=== PATIENT | male | born 1985 | race Caucasian/White ===

== ENCOUNTER 2017-03-04 22:48 | Emergency (ER) | payer MEDICAID, OTHER ==
[2017-03-04 23:10] VITALS: BP 135/91
--- NOTE | 2017-03-04 23:17 | EDM.PDOC ---
ED HPI LOWER BACK PAIN/INJURY - General Chief Complaint: Back Pain or Injury Stated Complaint: BACK PAIN AND RIGHT LEG PAIN Time Seen by Provider: 03/04/17 23:20 Source of Information: Reports: Patient History Limitations: Reports: No limitations - History of Present Illness INITIAL COMMENTS - FREE TEXT/NARRATIVE: 31-year-old male presents the ED with acute onset of right low back pain radiating down the posterior lateral aspect of his right leg. States this occurred in the workplace this morning about 0900 hrs ,when he bent over to pick and shovel man holes from the ground. [place] sudden pop and had severe pain in his right back that nearly per him to the ground. States he had to quit work and came back to town. 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 He has similar problems in the past the back is been for the most part pretty good over the last 2 months. 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 He is immunocompromised by been on cyclophosphamide and prednisone daily. Patient comes to the ED seeking pain management. Of note he lives in [place].. Symptom Onset Date: 03/04/17 Symptom Onset Time: 09:00 Timing/Duration: Reports: Hour(s): Location: Reports: lower (Mid lower right back.), radiating pain (Right posterior lateral leg and buttock.) Quality: Reports: Same as previous episode, Sharp (Perhaps worsened when his experience in the past.), Stabbing, Throbbing Severity: severe Place of Occurrence: work Improves with: Reports: None (Has been taking Aleve and Motrin with no relief.) Worsens with: Reports: Movement (Worsened particularly by sitting.) Context: Reports: lifting, bending Associated Symptoms: Reports: Shortness of breath (Chronically due to vasculitis involving his lungs.). 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: NSAIDS, Other (see below) - Related Data Allergies/ADRs: Allergies Allergy/AdvReac Type Severity Reaction Status Date / Time methocarbamol [From Robaxin] Allergy Itching Verified 03/04/17 23:10 tramadol AdvReac Sweating Verified 03/04/17 23:10 Home Meds: Home Meds Cyclophosphamide 50 mg PO DAILY 04/25/16 [History] Pantoprazole Sodium [Protonix] 40 mg PO BID 04/25/16 [History] predniSONE [Prednisone] 20 mg PO DAILY 04/25/16 [History] Cyclobenzaprine [Flexeril] 10 mg PO BEDTIME #15 tablet 03/04/17 [Rx] Cyclobenzaprine [Flexeril] 10 mg PO DAILY #1 tablet 03/04/17 [Rx] Lisinopril 10 mg PO BID 03/04/17 [History] oxyCODONE HCl/Acetaminophen [Percocet 5-325 mg Tablet] 1 - 2 each PO Q4H PRN # 30 tablet 03/04/17 [Rx] oxyCODONE HCl/Acetaminophen [Percocet 5-325 mg Tablet] 1 - 2 each PO Q4H PRN #5 tablet 03/04/17 [Rx] Past Medical History HEENT History: Reports: Impaired vision Other HEENT History: wears eyeglasses Cardiovascular History: Reports: High cholesterol, Hypertension Respiratory History: Reports: Pneumothorax Other Respiratory History: ANCA Vasculitis Musculoskeletal History: Reports: Back pain, chronic Neurological History: Reports: Headaches, chronic Immunologic History: Reports: Other (see below) Other Immunologic History: vasculitis, "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." - Past Surgical History GI Surgical History: Reports: Appendectomy Neurological Surgical History: Reports: C-Spine, Lumbar spine Social & Family History - Family History Family Medical History: Noncontributory Cardiac: Reports: [place] - Tobacco Use Smoking Status *Q: Never Smoker Used Tobacco, but Quit: Yes Second Hand Smoke Exposure: No - Caffeine Use Caffeine Use: Reports: Soda - Alcohol Use Days Per Week of Alcohol Use: 0 - Recreational Drug Use Recreational Drug Use: No - Living Situation & Occupation Living situation: Reports: single, other (Work camp roommates) 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 Denies: fever, chills, malaise, weakness, fatigue, weight loss HEENT: Reports: No symptoms Respiratory: Reports: No Symptoms Cardiovascular: Reports: No symptoms Endocrine: Reports: no symptoms GI/Abdominal: Reports: No symptoms : Reports: no symptoms Musculoskeletal: Reports: back pain (Right mid and lower back pain radiating into the posterior right thought and down the lateral posterior aspect of his leg.) Skin: Reports: no symptoms Neurological: Reports: No Symptoms Psychiatric: Reports: No symptoms Hematologic/Lymphatic: Reports: no symptoms Immunologic: Reports: no symptoms ED EXAM,LOWER BACK PAIN/INJURY - Physical Exam Exam: See Below Exam Limited By: Other General Appearance: alert (Moves very slowly.), WD/WN, moderate distress Eye Exam: bilateral eye: normal inspection Respiratory/Chest: no respiratory distress, lungs clear, normal breath sounds, no accessory muscle use Cardiovascular: normal peripheral pulses, regular rate, rhythm, no edema, no gallop, no murmur GI/Abdominal: normal bowel sounds, soft, non tender, no organomegaly, no distention Back Exam: decreased range of motion, muscle spasm (Minimal muscle spasm on the right side his highest T6 radiating down toward lumbar one. In the lumbar spine muscle spasm dissipates. It is tenderness in the deep facet joints particularly at lumbar 2-3 area. He has limited ability to rotate and to forward flex.) Extremities: normal inspection, no pedal edema, normal capillary refill, other ( One left leg raise I can internally and externally rotate both his hip and cause some mild increased pain in his right lower back. On the right side straight leg raise caused pain at 40 of straight leg raise. He does have full range of motion of his hip when flexed. Pain worsened is living history note with increased pain in his right lower back.) Neurological: normal mood/affect, normal dorsiflexion, CN II-XII intact, oriented x 3. No: normal gait, normal reflexes DTR - Lower Extremities: 1+: ankle (R), ankle (L), 2+: knee (R), knee (L) Psychiatric: normal affect Skin Exam: Warm, Dry, Intact, Normal color, No rash Course - Vital Signs Last Recorded V/S: Last Vital Signs Temp 37.1 C 03/04/17 23:04 Pulse 76 03/04/17 23:04 Resp 16 03/04/17 23:04 BP 135/91 H 03/04/17 23:04 Pulse Ox 100 03/04/17 23:04 - Orders/Labs/Meds Meds: Medications Discontinued Medications Generic Name Dose Route Start Last Admin Trade Name Freq PRN Reason Stop Dose Admin Cyclobenzaprine HCl Confirm 03/05/17 00:05 Flexeril Administered 03/05/17 00:06 Dose 10 mg .[facility] .[facility]MedSocketT[facility] - Radiology Interpretation Free Text/Narrative:: 31-year-old male presents the ED with acute injury to his right lower back with radiculopathy into his right buttock and posterior lateral leg L5 nerve root distribution. He's had this before but not quite to the severity. States the pain occurred simply by bending over to pick and shovel man a hose from the ground while in the workplace about 0900 hours this morning. Since that time the pain has gradually increased in intensity. He did quit work and go home early. Taking Flexeril tablets at home with minimal relief. Patient is unusual disease with severe vasculitis involving his lungs. He is immunocompromised by been on cyclophosphamide and prednisone daily. It's unclear if this is Guy's granulomatosis or some other form of vasculitis. On exam he has minimal months muscle spasm. Concern is for disc herniation. Plan CT of the lumbar spine - Re-Assessments/Exams Free Text/Narrative Re-Assessment/Exam: 03/05/17 00:30: CT of the lumbar spine shows no other maladies of the bony structure checks are in the disc spaces are well-maintained. I can see no obvious disc herniation. Facet facet joints also appear to be normal. Hopefully therefore this is more of the facet joint strain. He will be treated with Flexeril 10 mg Q. 12 hours when necessary to alleviate spasm. He will use Motrin sparingly as needed as an anti-inflammatory. Percocet 5 325 mg tablets one or 2 every 4-6 hours for pain relief will not work. He'll take the next 2 days off work to allow his back spasms a subtle. He is to continue his prednisone and cyclosporine as before. Followup with not if not markedly improved in 10 days' time. May require MRI. At higher risk of disc herniation do to being on current medications. Departure - Departure Time of Disposition: 23:54 Disposition: Home, Self-Care 01 Condition: fair Clinical Impression: Lumbar back pain with radiculopathy affecting right lower extremity Prescriptions: Cyclobenzaprine [Flexeril] 10 mg PO BEDTIME #15 tablet Cyclobenzaprine [Flexeril] 10 mg PO DAILY #1 tablet oxyCODONE HCl/Acetaminophen [Percocet 5-325 mg Tablet] 1 - 2 each PO Q4H PRN # 30 tablet PRN Reason: pain relief. oxyCODONE HCl/Acetaminophen [Percocet 5-325 mg Tablet] 1 - 2 each PO Q4H PRN #5 tablet PRN Reason: pain relief. Instructions: Back Pain, Adult Referrals: Julito Hatch PA-C [Primary Care Provider] - Forms: ED Department Discharge, Return to Work/School Form Additional Instructions: Evaluation in the emergency room tonight in regards to acute onset of severe right lower back pain radiating down the right buttock and down the posterior lateral aspect of the right leg. ie.sciatica. This occurred while at work today he just simply bending over and going to pick and shovel man close with sudden onset of a pop feeling in her lower back in severe pain. It appears the pop was secondary to facet joint movement which precipitated overlying muscle spasm and obviously contused or injured the nerve root that travels down the back of the leg to the foot. As you have expressed this is happened in the past but never quite to this severity. CT scan of the lumbar spine was carried out on an emergent tonight he does not reveal any injuries to the bony structures and no evidence of nerve root being pinched off by arthritis or any fracture. We call this mechanical lower back pain with referred pain down the extremity. Treatment is rest and time to heal. Continue prednisone 20 mg once a day as you are taking for your vasculitis. Percocet tabs 5-325 usually 2 tablets every 4 hours for pain relief as needed. Textural 10 mg to be taken up to every 8 hours for muscle spasm primarily at bedtime as it tends to cause sedation. Expect gradual improvement over the next 7-8 days. He return to work when able especially if there is alternative work duties were don't have to do lifting pushing pulling or tearing. Usually acute facet joint strain take 7-10 days to settle down completely. Followup with Julito Hatch if you are not improved where an MRI could be carried out and followup with Dr. Aviles in [place] who performs epidural injections if needed
[2017-03-05] MEDS ORDERED: Cyclobenzaprine 10 MG Tab ONE (00:05)
--- NOTE | 2017-03-05 17:45 | CT ---
CT lumbar spine Technique: Multiple axial sections were obtained from the bottom of T12 inferiorly to the mid S3 segment. Reconstructed sagittal and coronal images were reviewed. Findings: Moderate disc space narrowing noted at L5-S1. Posterior spurring is seen at L5-S1. Mild circumferential disc bulge also noted at L4-L5. Other discs are maintained. No focal disc herniation is seen. Vertebral bodies and posterior arches are intact with no fracture being seen. No bony central or bony neural foraminal stenosis is noted. No abnormal subluxation is seen on the reconstructed sagittal images. Impression: 1. Slight degenerative change. 2. Nothing acute is identified on CT study of the cervical spine. Agree with preliminary report issued by [facility] (preliminary report dictated on 03/05/17, 12:54 AM Central Time) Diagnostic code #2
== END 2017-03-05 00:40 | disposition home or self-care (01) ==
LOC: JD.ED 22:48
DX: M54.16 Radiculopathy, lumbar region (principal); E78.00 Pure hypercholesterolemia, unspecified; I10 Essential (primary) hypertension; G89.29 Other chronic pain; Z79.899 Other long term (current) drug therapy; Z88.6 Allergy status to analgesic agent
CPT/HCPCS: 72131; 72131-26; 99283; 99284-25

== ENCOUNTER 2017-03-15 19:27 | Emergency (ER) | payer MEDICAID, OTHER ==
--- NOTE | 2017-03-15 20:00 | EDM.PDOC ---
ED HPI GENERAL MEDICAL PROBLEM - General Chief Complaint: Back Pain or Injury Stated Complaint: LOWER BACK PAIN ELEVATED BLOOD PRESSURE Time Seen by Provider: 03/15/17 19:49 - History of Present Illness INITIAL COMMENTS - FREE TEXT/NARRATIVE: 31-year-old male presents emergency room with elevated blood pressure. Patient notices blood pressure was going up he was advised by the clinic to come in. Patient has a significant history of ANCA vasculitis he is on prednisone and multiple medications for this. He is taking lisinopril 10 mg daily for his blood pressure. Patient is not having chest pain or chest pressure at this point. Patient denies any recent illnesses. The patient's chronic back pain his regular provider here is get him scheduled for pain clinic it sounds like he has a Dr. gisele wyman in [place] that prescribes his pain medication he is out of these at this point and understands he needs to followup with his regular provider to get these refilled. Lower Back Pain Score (Numeric/FACES): 10 - Related Data Allergies Allergy/AdvReac Type Severity Reaction Status Date / Time methocarbamol [From Robaxin] Allergy Itching Verified 03/15/17 19:41 tramadol AdvReac Sweating Verified 03/15/17 19:41 Home Meds: Home Meds Cyclophosphamide 50 mg PO DAILY 04/25/16 [History] Pantoprazole Sodium [Protonix] 40 mg PO BID 04/25/16 [History] predniSONE [Prednisone] 20 mg PO DAILY 04/25/16 [History] Cyclobenzaprine [Flexeril] 10 mg PO DAILY #1 tablet 03/04/17 [Rx] Lisinopril 10 mg PO BID 03/04/17 [History] oxyCODONE HCl/Acetaminophen [Percocet 5-325 mg Tablet] 1 - 2 each PO Q4H PRN #5 tablet 03/04/17 [Rx] amLODIPine [Norvasc] 5 mg PO DAILY #30 tablet 03/15/17 [Rx] Past Medical History HEENT History: Reports: Impaired vision Other HEENT History: wears eyeglasses Cardiovascular History: Reports: High cholesterol, Hypertension Respiratory History: Reports: Pneumothorax Other Respiratory History: ANCA Vasculitis Musculoskeletal History: Reports: Back pain, chronic Neurological History: Reports: Headaches, chronic Immunologic History: Reports: Other (see below) Other Immunologic History: vasculitis, "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." - Past Surgical History GI Surgical History: Reports: Appendectomy Neurological Surgical History: Reports: C-Spine, Lumbar spine Social & Family History - Family History Family Medical History: Noncontributory Cardiac: Reports: [place] - Tobacco Use Smoking Status *Q: Never Smoker Used Tobacco, but Quit: Yes Second Hand Smoke Exposure: No - Caffeine Use Caffeine Use: Reports: Soda - Alcohol Use Days Per Week of Alcohol Use: 0 - Recreational Drug Use Recreational Drug Use: No - Living Situation & Occupation Living situation: Reports: single, other (Work camp roommates) 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) ED ROS GENERAL - Review of Systems Review Of Systems: See Below Constitutional: Reports: no symptoms HEENT: Reports: No symptoms Respiratory: Reports: No Symptoms Cardiovascular: Reports: No symptoms GI/Abdominal: Reports: No symptoms : Reports: no symptoms Musculoskeletal: Reports: back pain Neurological: Reports: No Symptoms ED EXAM, GENERAL - Physical Exam Exam: See Below Exam Limited By: No limitations General Appearance: alert, no apparent distress, other (His blood pressure is 153/103 the time of exam at this time it is 139/97) Head: atraumatic, normocephalic Neck: normal inspection, supple, non-tender, full range of motion Respiratory/Chest: no respiratory distress, lungs clear, normal breath sounds Cardiovascular: regular rate, rhythm, no edema, no murmur GI/Abdominal: normal bowel sounds, soft, non tender Course - Vital Signs Last Recorded V/S: Last Vital Signs Temp 37.0 C 03/15/17 19:37 Pulse 105 H 03/15/17 19:37 Resp 14 03/15/17 19:37 BP 187/100 H 03/15/17 19:37 Pulse Ox 100 03/15/17 19:37 - Orders/Labs/Meds Orders: Active Orders 24 hr Category Date Time Status EKG 12 Lead [EKG Documentation Completion] [RC] STAT Care 03/15/17 20:19 Active Labs: Laboratory Tests 03/15/17 Range/Units 20:33 Sodium 142 (136-145) mEq/L Potassium 3.9 (3.5-5.1) mEq/L Chloride 108 H (98-107) mEq/L Carbon Dioxide 25 (21-32) mEq/L Anion Gap 12.9 (5-15) BUN 18 (7-18) mg/dL Creatinine 1.4 H (0.7-1.3) mg/dL Est Cr Clr Drug Dosing 76.45 mL/min Estimated GFR (MDRD) 59 (>60) mL/min BUN/Creatinine Ratio 12.9 L (14-18) Glucose 99 (74-106) mg/dL Calcium 9.2 (8.5-10.1) mg/dL Meds: Medications Discontinued Medications Generic Name Dose Route Start Last Admin Trade Name Teodoro PRN Reason Stop Dose Admin Amlodipine Besylate 5 mg 03/15/17 21:35 Norvasc PO 03/15/17 21:36 ONETIME ONE - Re-Assessments/Exams Free Text/Narrative Re-Assessment/Exam: 03/15/17 21:44 Patient's labs reviewed his creatinine slightly elevated at 1.4 he is on lisinopril 10 mg a day this will not be changed I will add Norvasc 5 mg daily he needs close clinical followup. In the past patient [place] provider appear who has him scheduled for a back injection. I've inform the patient that really we don't do chronic pain management to the emergency room and he needs to get his local provider to work with him on this at this point I will give him 10 Percocet so he has time to discuss this with his regular provider here or his physician back home. I've also explained to patient that with his vasculitis and prior kidney injury he needs very close followup. Departure - Departure Time of Disposition: 21:46 Disposition: Home, Self-Care 01 Clinical Impression: Hypertension Prescriptions: amLODIPine [Norvasc] 5 mg PO DAILY #30 tablet Forms: ED Department Discharge Additional Instructions: Followup in the clinic in the next day or 2 for recheck of your blood pressure and discusse long-term pain management. Return to emergency room if any questions or problems. You've been given Percocet #10 one every 6 hours as needed for pain from the machine in the waiting room. Allow 12 hours after using this medication before driving or returning to work - My Orders Last 24 Hours: My Active Orders 03/15/17 20:19 EKG 12 Lead [EKG Documentation Completion] [RC] STAT - Assessment/Plan Last 24 Hours: My Active Orders 03/15/17 20:19 EKG 12 Lead [EKG Documentation Completion] [RC] STAT
[2017-03-15] MEDS ORDERED: amLODIPine 5 MG Tab PO ONE (21:35)
[2017-03-15 21:45] VITALS: BP 142/100
== END 2017-03-15 22:07 | disposition home or self-care (01) ==
LOC: JD.ED 19:27
DX: I10 Essential (primary) hypertension (principal); E78.00 Pure hypercholesterolemia, unspecified; Z90.49 Acquired absence of other specified parts of digestive tract; Z79.899 Other long term (current) drug therapy; Z88.5 Allergy status to narcotic agent; Z88.8 Allergy status to other drugs, medicaments and biological substances
CPT/HCPCS: 36415; 80048; 93005; 99284; A9270; 99283

== ENCOUNTER 2017-03-27 22:31 | Inpatient (IN) | payer BC, MEDICAID, OTHER ==
--- NOTE | 2017-03-27 22:59 | EDM.PDOC ---
ED HISTORY OF PRESENT ILLNESS - General Chief Complaint: Respiratory Problem Stated Complaint: CHEST PAIN, DIZZY, NASUEA Time Seen by Provider: 03/27/17 22:58 Source of Information: Reports: Patient History Limitations: Reports: No limitations - History of Present Illness INITIAL COMMENTS - FREE TEXT/NARRATIVE: 31-year-old male attends the ED due to too high fever chills and rigors the last 2 days. She was exposed to a toxic environment in the workplace where her monoxide monitor went off twice in the last 2 days because apparently of a leaky hole was clamped turbine. He developed symptoms of headache and shortness of breath and nausea. He's been very barely able to eat anything today. He states he vomited up his medication this morning and is suspect that none of the medication was observed. 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 He is therefore immunocompromised by the use of cyclophosphamide 50 mg daily and prednisone 20 mg once daily. ie. he is steroid-dependent. At time of presentation his temperature 102.6. He states he just simply can't warm up. Has a headache and he is nauseated. Having pleuritic type pain left lung field. Left lateral chest wall. Cough is productive of brownish type sputum. States initially started out as light yellow. He has been ill now for the last 48 hours. Poor oral intake for the last 24 hours. Symptom Onset Date: 03/25/17 Timing/Duration: Reports: Day(s):, Getting worse, Gradual onset Severity: moderate Location, General: Reports: chest, generalized (Generalized weakness with high fever) Quality: Reports: Sharp (Pleuritic-like pain left lateral anterior chest.) Improves with: Reports: Rest Worsens with: Reports: Other (Coughing and deep breathing.), Movement Context, General: Denies: Activity, Exercise, Lifting, Sick contact, Trauma, Other Associated Symptoms (General): Reports: chest pain (Left lateral chest.), cough w sputum (Mostly brownish in color.), fever/chills, headaches (Temperature 102.6.), loss of appetite, malaise, shortness of breath, weakness. 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 - Related Data Allergies/ADRs: Allergies Allergy/AdvReac Type Severity Reaction Status Date / Time methocarbamol [From Robaxin] Allergy Itching Verified 03/27/17 22:52 tramadol AdvReac Sweating Verified 03/27/17 22:52 Home Meds: Home Meds Cyclophosphamide 50 mg PO DAILY 04/25/16 [History] Pantoprazole Sodium [Protonix] 40 mg PO BID 04/25/16 [History] predniSONE [Prednisone] 20 mg PO DAILY 04/25/16 [History] Lisinopril 10 mg PO BID 03/04/17 [History] amLODIPine [Norvasc] 5 mg PO DAILY #30 tablet 03/15/17 [Rx] Hydrocodone/Acetaminophen [Hydrocodon-Acetaminophen 5-325] 1 each PO Q4H PRN 07/06 [History] Past Medical History HEENT History: Reports: Impaired vision Other HEENT History: wears eyeglasses Cardiovascular History: Reports: High cholesterol, Hypertension Respiratory History: Reports: Pneumothorax Other Respiratory History: ANCA Vasculitis Gastrointestinal History: Reports: GERD Musculoskeletal History: Reports: Back pain, chronic Neurological History: Reports: Headaches, chronic Immunologic History: Reports: Immunosuppression, Other (see below) Other Immunologic History: vasculitis, "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." - Past Surgical History GI Surgical History: Reports: Appendectomy Neurological Surgical History: Reports: C-Spine, Lumbar spine Social & Family History - Family History Family Medical History: Noncontributory Cardiac: Reports: MS Neurological: Reports: Other (see below) Other Neurological Family History: Mother had a crani - Tobacco Use Smoking Status *Q: Never Smoker Used Tobacco, but Quit: Yes Second Hand Smoke Exposure: No - Caffeine Use Caffeine Use: Reports: Soda - Alcohol Use Days Per Week of Alcohol Use: 0 Number of Drinks Per Day: 1 Total Drinks Per Week: 0 - Recreational Drug Use Recreational Drug Use: No - Living Situation & Occupation Living situation: Reports: single, other (Work camp roommates) 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 Denies: Ear pain, Glasses, Hearing loss, Nose pain , Vision change Respiratory: Reports: Shortness of Breath, Pleuritic Chest Pain, Cough (Left side.). Denies: Wheezing, Hemoptysis, Other ( Paroxysmal productive cough with yellow brown sputum) Cardiovascular: Reports: Chest pain (Left), Blood pressure problem, Dyspnea on exertion. Denies: Claudication (Hypertension.), Edema, Lightheadedness, Orthopnea, Palpitations Endocrine: Reports: fatigue GI/Abdominal: Reports: Decreased appetite, Nausea, Vomiting (Vomited this morning that should be kept on any of his medications.). Denies: Black stool, Constipation, Diarrhea : Reports: no symptoms Musculoskeletal: Reports: back pain (Chronic low back pain.) Skin: Reports: no symptoms Neurological: Reports: No Symptoms, Headache, Difficulty Walking (Due to weakness.). Denies: Seizure, Syncope, Weakness Hematologic/Lymphatic: Reports: no symptoms ED EXAM, GENERAL - Physical Exam Exam: See Below Exam Limited By: No limitations General Appearance: alert, WD/WN, moderate distress (Feels very warm to palpation. Temperature was reported to be 102.6.) Eye Exam: bilateral eye: normal inspection Ears: other (Right ear is completely occluded by cerumen. Left tympanic membrane is normal.) Throat/Mouth: Normal inspection, Normal lips, Normal teeth, Normal oropharynx Head: normocephalic Neck: normal inspection, supple, non-tender, full range of motion. No: lymphadenopathy (L), lymphadenopathy (R) Respiratory/Chest: no accessory muscle use, chest non-tender, respiratory distress (Mild tachypnea at rest.), rhonchi (Few rhonchi left lung base.). No: wheezing Cardiovascular: normal peripheral pulses, regular rate, rhythm, no edema, no gallop, no murmur (Initially heart rate was 107 per minute.), no rub, tachycardia Peripheral Pulses: 2+: posterior tibial (L), posterior tibial (R), dorsalis pedis (L), dorsalis pedis (R) GI/Abdominal: normal bowel sounds, soft, non tender, no organomegaly, no distention, no abnormal bruit, no mass, tender (Mild in the epigastrium.) (Male) Exam: No hernia Back Exam: paraspinal tenderness, other. No: CVA tenderness (L), CVA tenderness (R) Extremities: normal inspection (Some pain in both upper SI joints bilaterally), normal range of motion, non-tender, no pedal edema Neurological: alert, oriented, CN II-XII intact, normal cognition, normal gait Psychiatric: normal affect, normal mood Skin Exam: Warm, Dry, Intact, Normal color, No rash, Diaphoretic EKG INTERPRETATION EKG Date: 03/27/17 Time: 22:50 Rhythm: other (Sinus tachycardia at 104 per minute.) Rate (beats/min): 104 [place]: normal P-wave: present QRS: other (Early R-wave transition suggestive of right ventricular hypertrophy or pulmonary hypertension better. Also suggested left ventricular hypertrophy pattern.) ST-T: other (T wave inversions in V4 to V6. T waves are flat in one and aVL.) QT: normal Course - Vital Signs Last Recorded V/S: Last Vital Signs Temp 38.9 C H 03/27/17 23:30 Pulse 99 03/27/17 22:40 Resp 20 03/27/17 22:40 BP 149/95 H 03/27/17 22:40 Pulse Ox 96 03/27/17 22:40 - Orders/Labs/Meds Orders: Active Orders 24 hr Category Date Time Status Admission Status [Patient Status] [ADT] Routine ADT 03/28/17 03:40 Ordered Chest 2V [CR] Stat Exams 03/27/17 23:07 Taken CULTURE BLOOD [BC] Stat Lab 03/27/17 23:25 Received CULTURE BLOOD [BC] Stat Lab 03/27/17 23:35 Received Dextrose 5%-0.9% NaCl [Dextrose 5%-Normal Saline] 1,000 Med 03/27/17 23:15 Active ml IV ASDIRECTED Blood Culture x2 Reflex Set [OM.PC] Stat Oth 03/27/17 23:10 Ordered Medication Orders Dextrose/Sodium Chloride (Dextrose 5%-Normal Saline) 1,000 mls @ 500 mls/hr IV ASDIRECTED TRISTEN Last Admin: 03/27/17 23:27 Dose: 500 mls/hr Levofloxacin/Dextrose 750 mg/ (Premix) 150 mls @ 100 mls/hr IV ONETIME ONE Stop: 03/28/17 00:41 Last Admin: 03/27/17 23:34 Dose: 100 mls/hr Labs: Laboratory Tests 03/27/17 03/27/17 03/27/17 Range/Units 23:25 23:25 23:35 WBC 7.46 (4.23-9.07) K/mm3 RBC 4.12 L (4.63-6.08) M/mm3 Hgb 12.5 L (13.7-17.5) gm/L Hct 38.4 L (40.1-51.0) % MCV 93.2 H (79.0-92.2) fl MCH 30.3 (25.7-32.2) pg MCHC 32.6 (32.2-35.5) g/dl RDW Std Deviation 46.7 H (35.1-43.9) fL Plt Count 212 (163-337) K/mm3 MPV 11.0 (9.4-12.3) fl Neutrophils % (Manual) 84 H (40-60) % Band Neutrophils % 3 (0-10) % Lymphocytes % (Manual) 8 L (20-40) % Atypical Lymphs % 0 % Monocytes % (Manual) 3 (2-10) % Eosinophils % (Manual) 2 (0.8-7.0) % Basophils % (Manual) 0 L (0.2-1.2) Platelet Estimate Adequate RBC Morph Comment Normal Sodium 140 (136-145) mEq/L Potassium 4.3 (3.5-5.1) mEq/L Chloride 105 (98-107) mEq/L Carbon Dioxide 27 (21-32) mEq/L Anion Gap 12.3 (5-15) BUN 17 (7-18) mg/dL Creatinine 1.2 (0.7-1.3) mg/dL Est Cr Clr Drug Dosing 89.19 mL/min Estimated GFR (MDRD) > 60 (>60) mL/min BUN/Creatinine Ratio 14.2 (14-18) Glucose 99 (74-106) mg/dL Lactic Acid 1.4 (0.4-2.0) mmol/L Calcium 9.2 (8.5-10.1) mg/dL Total Bilirubin 0.6 (0.2-1.0) mg/dL AST 34 (15-37) U/L ALT 33 (16-63) U/L Alkaline Phosphatase 109 (46-116) U/L C-Reactive Protein 3.5 H* (<1.0) mg/dL Total Protein 7.3 (6.4-8.2) g/dl Albumin 3.8 (3.4-5.0) g/dl Globulin 3.5 gm/dL Albumin/Globulin Ratio 1.1 (1-2) Mycoplasma pneumon IgM Negative (NEGATIVE) Meds: Medications Generic Name Dose Route Start Last Admin Trade Name Freq PRN Reason Stop Dose Admin Dextrose/Sodium Chloride 1,000 mls @ 500 mls/hr 03/27/17 23:15 03/27/17 23:27 Dextrose 5%-Normal Saline IV 500 mls/hr ASDIRECTED TRISTEN Administration Levofloxacin/Dextrose 750 mg/ 150 mls @ 100 mls/hr 03/27/17 23:12 03/27/17 23 :34 Premix IV 03/28/17 00:41 100 mls/hr ONETIME ONE Administration Discontinued Medications Generic Name Dose Route Start Last Admin Trade Name Freq PRN Reason Stop Dose Admin Acetaminophen 975 mg 03/27/17 23:11 03/27/17 23:30 Tylenol PO 03/27/17 23:12 975 mg NOW ONE Administration Hydromorphone HCl 0.5 mg 03/28/17 00:05 Dilaudid IVPUSH 03/28/17 00:06 ONETIME ONE Hydromorphone HCl Confirm 03/28/17 02:41 Dilaudid Administered 03/28/17 02:42 Dose 0.5 mg .ROUTE .STK-MED ONE Lactated Ringer's Confirm 03/28/17 02:41 Ringers, Lactated Administered 03/28/17 02:42 Dose 1,000 mls @ as directed .ROUTE .STK-MED ONE Ketorolac Tromethamine Confirm 03/28/17 00:54 Toradol Administered 03/28/17 00:55 Dose 30 mg .ROUTE .STK-MED ONE Lorazepam Confirm 03/28/17 02:42 Ativan Administered 03/28/17 02:43 Dose 2 mg .ROUTE .STK-MED ONE Lorazepam Confirm 03/28/17 02:43 Ativan Administered 03/28/17 02:44 Dose 2 mg .ROUTE .STK-MED ONE Metoclopramide HCl 10 mg 03/27/17 23:11 03/27/17 23:31 Reglan IVPUSH 03/27/17 23:12 10 mg ONETIME ONE Administration Metoclopramide HCl 10 mg 03/28/17 00:06 Reglan IVPUSH 03/28/17 00:07 ONETIME ONE - Radiology Interpretation Free Text/Narrative:: 31-year-old male presents to the ED with headache nausea generalized weakness and high fever. States the nail for last 2 days. Has pleuritic-like chest pain with paroxysmal cough of brownish sputum. He is been exposed to carbon monoxide in the workplace on at least 2 occasions over the last few days. He developed headache and nausea at that time and he thought that may be contributing to his initial illness. No she's been away from the carbon monoxide for several hours and therefore checking his levels of ABGs was not felt to be useful. Patient is immunocompromised because of a rare form of vasculitis affecting his lungs. He is currently on cyclophosphamide 50 mg daily and prednisone 20 mg daily. Initial temperature was 102.6. Plan chest x-ray routine labs including blood cultures x2. IV to be D5 normal saline at open. We'll start Levaquin 750 mg IV as soon as blood cultures x2 been collected. Tylenol 975 mg by mouth for fever relief. - Re-Assessments/Exams Free Text/Narrative Re-Assessment/Exam: 03/28/17 00:17 Portable CXR reveals a mild infiltrate LLL compatable with an early pneumonia. He is having increased pain Lt lung --pleuritic. Will give Dilaudid 0.5mg IV with Reglan 10mg IV for pain relief. Influenza screen is negative. Note [employer] is going down for the next 3 hours. Labs will be coming back piecemeal as they become available. 03/28/17 01:54: total white count is only 7.46 with 74% neutrophils and 3% bands reported. Hemoglobin 12.5 hematocrit of 38.4 platelets 212,000. 03/28/17: 0220: Mycoplasma Branden came back nonreactive. Lactic acid was 1.4. Chemistry shows sodium of 140 potassium 4.3 chloride 105 bicarbonate of 26.7. Glucose was 99 total protein is 7.3 creatinine is 1.2 CRP is elevated at 3.5. Patient is required Dilaudid 0.5 mg on 2 occasions to relieve pleuritic chest pain. Also given Ativan 1 mg last dose to help him sleep. He did initially receive Reglan 10 mg IV for nausea relief as well. 03/28/17 03:35: Spoke with Dr. Pinto combination operator hospitalist the patient will be admitted to the med surgery floor on telemetry. I will give him 62.5 mg of Solu- Medrol IV since he is steroid dependent and squash but whether or not he got his 20 mg of prednisone earlier yesterday. Will continue fluids D5 normal saline at 125 mils per hour. Departure - Departure Time of Disposition: 03:59 Disposition: Admitted As Inpatient 66 Condition: fair Clinical Impression: ANCA-positive vasculitis, Immunocompromised due to corticosteroids Pneumonia Qualifiers: Pneumonia type: due to unspecified organism Laterality: left Lung location: lower lobe of lung Qualified Code(s): J18.1 - Lobar pneumonia, unspecified organism Forms: ED Department Discharge - My Orders Last 24 Hours: My Active Orders 03/27/17 23:07 Chest 2V [CR] Stat 03/27/17 23:10 Blood Culture x2 Reflex Set [OM.PC] Stat 03/27/17 23:15 Dextrose 5%-0.9% NaCl [Dextrose 5%-Normal Saline] 1,000 ml IV ASDIRECTED 03/27/17 23:25 CULTURE BLOOD [BC] Stat 03/27/17 23:35 CULTURE BLOOD [BC] Stat 03/28/17 03:40 Admission Status [Patient Status] [ADT] Routine - Assessment/Plan Last 24 Hours: My Active Orders 03/27/17 23:07 Chest 2V [CR] Stat 03/27/17 23:10 Blood Culture x2 Reflex Set [OM.PC] Stat 03/27/17 23:15 Dextrose 5%-0.9% NaCl [Dextrose 5%-Normal Saline] 1,000 ml IV ASDIRECTED 03/27/17 23:25 CULTURE BLOOD [BC] Stat 03/27/17 23:35 CULTURE BLOOD [BC] Stat 03/28/17 03:40 Admission Status [Patient Status] [ADT] Routine
[2017-03-27] MEDS ORDERED: Metoclopramide 10 MG/2 ML SDV IVPUSH ONE (23:11)
[2017-03-27] MEDS ORDERED: Acetaminophen 325 MG Tab PO ONE (23:11)
[2017-03-27] MEDS ORDERED: Levofloxacin/Dextrose 5%-Water 750 MG in Premix Bag 1 BAG IV ONE (23:12)
[2017-03-27] MEDS ORDERED: Dextrose 5%-0.9% NaCl 1,000 ML IV SCH (23:15)
[2017-03-28] MEDS ORDERED: HYDROmorphone 0.5 MG/0.5 ML Syringe IVPUSH ONE (00:05)
[2017-03-28] MEDS ORDERED: Metoclopramide 10 MG/2 ML SDV IVPUSH ONE (00:06)
[2017-03-28] MEDS ORDERED: Ketorolac 30 MG/ML SDV ONE (00:54)
[2017-03-28] MEDS ORDERED: Lactated Ringers 0 ML ONE (02:41)
[2017-03-28] MEDS ORDERED: HYDROmorphone 0.5 MG/0.5 ML Syringe ONE (02:41)
[2017-03-28] MEDS ORDERED: LORazepam 2 MG/ML MDV ONE ×2 (02:42→02:43)
[2017-03-28] MEDS ORDERED: methylPREDNISolone Sodium Succinate 125 MG/2 ML SDV IVPUSH ONE (03:43)
[2017-03-28] MEDS ORDERED: Piperacillin/Tazobactam 4.5 GM in Sodium Chloride 0.9% 100 ML IV ONE (04:19)
[2017-03-28] MEDS ORDERED: Albuterol 0.042% 1.25 MG/3 ML Neb Soln NEB PRN (04:20)
[2017-03-28] MEDS ORDERED: Dextrose 5%-0.9% NaCl 1,000 ML IV ONE (04:20)
[2017-03-28] MEDS ORDERED: Dextrose 5%-0.9% NaCl 1,000 ML IV SCH (04:30)
[2017-03-28] MEDS ORDERED: Pneumococcal Polyvalent-23 Vaccine 0.5 ML SDV IM ONE (04:52)
[2017-03-28] MEDS ORDERED: HYDROmorphone 1 MG/ML Syringe IVPUSH ONE (05:18)
[2017-03-28] MEDS ORDERED: Enoxaparin 30 MG/0.3 ML Syringe SUBCUT SCH (09:00)
--- NOTE | 2017-03-28 09:12 | CR ---
Chest: Two views of the chest were obtained. Comparison: Previous chest x-ray of 09/09/16. Heart size and mediastinum are normal. Slight blunting of the right lateral costophrenic angle is seen which appears chronic. Questionable mild increased density within the left lung base. Linear densities are noted within the right middle lobe which appear to be chronic. Upper lungs are clear. Bony structures are unremarkable for the patient's age. Impression: 1. Questionable increased density within the left lung base. Difficult to exclude early area of pneumonia versus atelectasis. 2. Slight scarring within the lingula. Mild blunting of the lateral right costophrenic angle which appears stable. Diagnostic code #3
[2017-03-28] MEDS ORDERED: Ondansetron 4 MG Tab.DIS PO PRN (09:55)
[2017-03-28] MEDS ORDERED: Ondansetron 4 MG/2 ML SDV IV PRN (09:55)
[2017-03-28] MEDS ORDERED: Magnesium Hydroxide 400 MG/5 ML Susp 30 ML Cup PO PRN (09:55)
[2017-03-28] MEDS: Acetaminophen/HYDROcodone 325-5 MG Tab PO PRN ×2 (10:14→20:33)
[2017-03-28] MEDS: Enoxaparin 40 MG/0.4 ML Syringe SUBCUT SCH (10:15)
--- NOTE | 2017-03-28 10:55 | PCM.HP ---
<Patricia Armenta M - Last Filed: 03/28/17 13:31> H&P History of Present Illness - General Date of Service: 03/28/17 Admit Problem/Dx: Admission Diagnosis/Problem Admission Diagnosis/Problem Pneumonia Source of Information: Patient, Old records History Limitations: Reports: No limitations - History of Present Illness Initial Comments - Free Text/Narative: Paulo is a 31yo male admitted through the ER last evening with acute onset SOB , cough and wheezing s/p chemical exposure at work to exhaust fumes. He reports this exposure x 4+ hours. 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 He states he became more and more SOB as the day progressed yesterday, cough worsened. He was dizzy, with headache, sweaty and febrile upon presentation to ER. Denies hemoptysis, n/v/d, abdominal or back pain. 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 PCP is Julito Hatch Resident Care Coordinator is Dr. Jin in [place] Onset of Symptoms: Reports: sudden Duration of Symptoms: Reports: Day(s): Location: Reports: chest Severity: moderate Improves with: Reports: Medication Worsens with: Reports: Breathing Context: Reports: other (fumes at work) Associated Symptoms: Reports: chest pain, cough, fever/chills, headaches, malaise, nausea/vomiting, weakness. Denies: diaphoresis chest wall area Pain Score (Numeric/FACES): 8 - Related Data Allergies/Adverse Reactions: Allergies Allergy/AdvReac Type Severity Reaction Status Date / Time methocarbamol [From Robaxin] Allergy Itching Verified 03/28/17 04:19 tramadol AdvReac Sweating Verified 03/28/17 04:19 Home Medications: Home Meds Cyclophosphamide 50 mg PO DAILY 04/25/16 [History] Pantoprazole Sodium [Protonix] 40 mg PO BID 04/25/16 [History] predniSONE [Prednisone] 20 mg PO DAILY 04/25/16 [History] Lisinopril 10 mg PO BID 03/04/17 [History] amLODIPine [Norvasc] 5 mg PO DAILY #30 tablet 03/15/17 [Rx] Hydrocodone/Acetaminophen [Hydrocodon-Acetaminophen 5-325] 1 each PO Q4H PRN 07/06 [History] Past Medical History HEENT History: Reports: Impaired vision Other HEENT History: wears eyeglasses Cardiovascular History: Reports: High cholesterol, Hypertension Respiratory History: Reports: Intubation, previous, Pneumothorax Other Respiratory History: ANCA Vasculitis Gastrointestinal History: Reports: GERD Musculoskeletal History: Reports: Back pain, chronic Neurological History: Reports: Headaches, chronic Immunologic History: Reports: Immunosuppression, Other (see below) Other Immunologic History: vasculitis, "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." - Past Surgical History GI Surgical History: Reports: Appendectomy Neurological Surgical History: Reports: C-Spine, Lumbar spine Other Musculoskeletal Surgeries/Procedures:: "neck fusion surgery" Social & Family History - Family History Family Medical History: Noncontributory Cardiac: Reports: [place] Neurological: Reports: Other (see below) Other Neurological Family History: Mother had a crani - Tobacco Use Smoking Status *Q: Never Smoker Used Tobacco, but Quit: Yes Second Hand Smoke Exposure: No - Caffeine Use Caffeine Use: Reports: Soda Other Caffeine Use: Daily soda drinker - Alcohol Use Days Per Week of Alcohol Use: 0 Number of Drinks Per Day: 1 Total Drinks Per Week: 0 - Recreational Drug Use Recreational Drug Use: No - Living Situation & Occupation Living situation: Reports: single, other (Work camp roommates) 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 Denies: Hemoptysis Cardiovascular: Reports: chest pain, dyspnea on exertion, lightheadedness. Denies: palpitations, orthopnea, edema Gastrointestinal: Reports: Nausea Genitourinary: Reports: no symptoms Musculoskeletal: Reports: no symptoms Skin: Reports: no symptoms Psychiatric: Reports: no symptoms Neurological: Reports: No Symptoms Exam - Exam Exam: See Below - Vital Signs Vital Signs: Last Vital Signs Temp 98.8 F 03/28/17 08:37 Pulse 97 03/28/17 08:37 Resp 16 03/28/17 08:37 BP 154/81 H 03/28/17 08:37 Pulse Ox 99 03/28/17 08:37 Weight: 101.831 kg - Exam Quality Assessment: DVT prophylaxis General: alert, oriented, cooperative HEENT: Conjunctiva clear, EACs clear, EOMI, Hearing intact, Mucosa moist & pink , Normal nasal septum, Pupils equal Neck: supple, trachea midline Lungs: Clear to auscultation, Decreased breath sounds, Wheezing Cardiovascular: regular rate, regular rhythm Abdomen: Normal Bowel Sounds, Soft. No: Distention, Guarding, Rigidity, Rebound , Tenderness (Male) Exam: Deferred Rectal (Males) Exam: Deferred Back Exam: normal inspection Extremities: normal inspection, normal pulses. No: clubbing, cyanosis Peripheral Pulses: 2+: dorsalis pedis (L), dorsalis pedis (R) Skin: warm, dry, intact Neurological: cranial nerves intact Neuro Extensive - Mental Status: alert, oriented x3, normal mood/affect, normal cognition, memory intact Neuro Extensive - Motor, Sensory, Reflexes: CN II-XII intact Psychiatric: alert, normal affect, normal mood - Patient Data Result Diagrams: 03/27/17 23:35 03/27/17 23:25 *Q Meaningful Use (ADM) - VTE *Q VTE Criteria *Q: - Stroke *Q Stroke Criteria *Q: - AMI *Q AMI Criteria *Q: - Problem List (1) Pneumonia SNOMED Code(s): 572146296 ICD Code: J18.9 - PNEUMONIA, UNSPECIFIED ORGANISM Status: Acute Priority : High Current Visit: Yes Qualifiers: Pneumonia type: due to unspecified organism Laterality: left Lung location: lower lobe of lung Qualified Code(s): J18.1 - Lobar pneumonia, unspecified organism (2) ANCA-positive vasculitis SNOMED Code(s): 909178784, 119902496 ICD Code: I77.6 - ARTERITIS, UNSPECIFIED Status: Chronic Priority: High Current Visit: Yes (3) Immunocompromised due to corticosteroids SNOMED Code(s): 426879503 ICD Code: T38.0X1A - POISONING BY GLUCOCORT/SYNTH ANALOG, ACCIDENTAL, INIT; D84.8 - OTHER SPECIFIED IMMUNODEFICIENCIES Status: Chronic Priority: High Current Visit: Yes (4) Hypertension SNOMED Code(s): 96631719 ICD Code: I10 - ESSENTIAL (PRIMARY) HYPERTENSION Status: Chronic Priority : High Current Visit: Yes Qualifiers: Hypertension type: essential hypertension Qualified Code(s): I10 - Essential (primary) hypertension Problem List Initiated/Reviewed/Updated: Yes Orders Last 24hrs: Active Orders 24 hr Category Date Time Status Patient Status [ADT] Routine ADT 03/28/17 09:55 Active Ambulate [RC] ASDIRECTED Care 03/28/17 09:55 Active Antiembolic Devices [RC] PER UNIT ROUTINE Care 03/28/17 09:57 Inactive Cardiac Monitoring [RC] CONTINUOUS Care 03/28/17 09:55 Active Height and Weight [RC] 04 Care 03/28/17 09:55 Active Intake and Output [RC] 04,16 Care 03/28/17 09:55 Active Oxygen Therapy [RC] PRN Care 03/28/17 09:55 Active RT Aerosol Therapy [RC] ASDIRECTED Care 03/28/17 04:23 Active RT Aerosol Therapy [RC] ASDIRECTED Care 03/28/17 09:57 Active RT Aerosol Therapy [RC] ASDIRECTED Care 03/28/17 10:01 Active Up With Assistance [RC] ASDIRECTED Care 03/28/17 09:55 Active VTE/DVT Education [RC] PER UNIT ROUTINE Care 03/28/17 09:55 Active Vital Signs [RC] Q4HR Care 03/28/17 09:55 Active Consult to Case Management [CONS] Routine Cons 03/28/17 09:55 Active Consult to Truck Packer [CONS] Routine Cons 03/28/17 09:55 Active 2 Gram Sodium Diet [DIET] Diet 03/28/17 Lunch Active Clear Liquid Diet [DIET] Diet 03/28/17 Breakfast Active Chest 2V [CR] Routine Exams 03/28/17 09:55 Taken BASIC METABOLIC PANEL,BMP [CHEM] DAILY Lab 03/28/17 05:00 Ordered BASIC METABOLIC PANEL,BMP [CHEM] DAILY Lab 03/29/17 05:00 Ordered BASIC METABOLIC PANEL,BMP [CHEM] DAILY Lab 03/30/17 05:00 Ordered BASIC METABOLIC PANEL,BMP [CHEM] DAILY Lab 03/31/17 05:00 Ordered BASIC METABOLIC PANEL,BMP [CHEM] DAILY Lab 04/01/17 05:00 Ordered C-REACTIVE PROTEIN [CHEM] DAILY Lab 03/28/17 05:00 Ordered C-REACTIVE PROTEIN [CHEM] DAILY Lab 03/29/17 05:00 Ordered C-REACTIVE PROTEIN [CHEM] DAILY Lab 03/30/17 05:00 Ordered C-REACTIVE PROTEIN [CHEM] DAILY Lab 03/31/17 05:00 Ordered C-REACTIVE PROTEIN [CHEM] DAILY Lab 04/01/17 05:00 Ordered CBC W/O DIFF,HEMOGRAM [HEME] MOTH@0700 Lab 03/30/17 07:00 Ordered CBC W/O DIFF,HEMOGRAM [HEME] MOTH@0700 Lab 04/03/17 07:00 Ordered CBC W/O DIFF,HEMOGRAM [HEME] MOTH@0700 Lab 04/06/17 07:00 Ordered CBC W/O DIFF,HEMOGRAM [HEME] MOTH@0700 Lab 04/10/17 07:00 Ordered CBC W/O DIFF,HEMOGRAM [HEME] MOTH@0700 Lab 04/13/17 07:00 Ordered CBC W/O DIFF,HEMOGRAM [HEME] MOTH@0700 Lab 04/17/17 07:00 Ordered MAGNESIUM [CHEM] DAILY Lab 03/28/17 05:00 Ordered MAGNESIUM [CHEM] DAILY Lab 03/29/17 05:00 Ordered MAGNESIUM [CHEM] DAILY Lab 03/30/17 05:00 Ordered MAGNESIUM [CHEM] DAILY Lab 03/31/17 05:00 Ordered MAGNESIUM [CHEM] DAILY Lab 04/01/17 05:00 Ordered STREP PNEUMONIAE ANTIGEN [MREF] Routine Lab 03/28/17 10:46 Uncollected UA W/O MICROSCOPIC [URIN] Routine Lab 03/28/17 09:55 Uncollected Acetaminophen/HYDROcodone [[place] 325-5 MG] Med 03/28/17 09:55 Active 1 tab PO Q4H PRN Albuterol [Proventil Neb Soln] Med 03/28/17 04:20 Active 1.25 mg NEB Q4HRRT PRN Albuterol [Proventil Neb Soln] Med 03/28/17 09:55 Active 2.5 mg NEB Q2H PRN Azithromycin [Zithromax] 500 mg Med 03/28/17 10:45 Ordered Sodium Chloride 0.9% [Normal Saline] 250 ml IV Q24H Budesonide [Pulmicort] Med 03/28/17 21:00 Active 0.5 mg NEB BIDRT Dextrose 5%-0.9% NaCl [Dextrose 5%-Normal Saline] 1,000 Med 03/28/17 04:30 Active ml IV ASDIRECTED Dextrose 5%-0.9% NaCl [Dextrose 5%-Normal Saline] 1,000 Med 03/28/17 04:20 Active ml IV ONETIME Enoxaparin [Lovenox] Med 03/28/17 09:00 Active 40 mg SUBCUT DAILY Lisinopril [Prinivil] Med 03/28/17 11:30 Active 10 mg PO BID Magnesium Hydroxide [Milk of Magnesia] Med 03/28/17 09:55 Active 30 ml PO Q12H PRN Ondansetron [Zofran ODT] Med 03/28/17 09:55 Active 4 mg PO Q4H PRN Ondansetron [Zofran] Med 03/28/17 09:55 Active 4 mg IV Q4H PRN Pantoprazole [ProTONIX] Med 03/28/17 21:00 Active 40 mg PO BID Piperacillin/Tazobactam [Zosyn] 4.5 gm Med 03/28/17 10:45 Ordered Sodium Chloride 0.9% [Normal Saline] 100 ml IV Q6H amLODIPine [Norvasc] Med 03/29/17 09:00 Active 5 mg PO DAILY methylPREDNISolone Sod Succ [Solu-MEDROL] Med 03/28/17 10:45 Ordered 40 mg IVPUSH Q12H Resuscitation Status Routine Resus Stat 03/28/17 04:50 Ordered Medication Orders Hydrocodone Bitart/Acetaminophen ([place] 325-5 Mg) 1 tab PO Q4H PRN PRN Reason: Pain (moderate 4-6) Last Admin: 03/28/17 10:14 Dose: 1 tab Albuterol (Proventil Neb Soln) 1.25 mg NEB Q4HRRT PRN PRN Reason: Shortness of Breath Albuterol (Proventil Neb Soln) 2.5 mg NEB Q2H PRN PRN Reason: Shortness Of Breath/wheezing Amlodipine Besylate (Norvasc) 5 mg PO DAILY [facility] Budesonide (Pulmicort) 0.5 mg NEB BIDRT [facility] Enoxaparin Sodium (Lovenox) 40 mg SUBCUT DAILY [facility] Last Admin: 03/28/17 10:15 Dose: Not Given Levofloxacin/Dextrose 750 mg/ (Premix) 150 mls @ 100 mls/hr IV ONETIME ONE Stop: 03/28/17 00:41 Last Admin: 03/27/17 23:34 Dose: 100 mls/hr Dextrose/Sodium Chloride (Dextrose 5%-Normal Saline) 1,000 mls @ 125 mls/hr IV ONETIME ONE Stop: 03/28/17 12:19 Last Admin: 03/28/17 04:22 Dose: 125 mls/hr Dextrose/Sodium Chloride (Dextrose 5%-Normal Saline) 1,000 mls @ 125 mls/hr IV ASDIRECTED TRISTEN Azithromycin 500 mg/ Sodium (Chloride) 250 mls @ 250 mls/hr IV Q24H [facility] Piperacillin Sod/Tazobactam (Sod 4.5 gm/ Sodium Chloride) 100 mls @ 33.333 mls/ hr IV Q6H [facility] Lisinopril (Prinivil) 10 mg PO BID [facility] Magnesium Hydroxide (Milk Of Magnesia) 30 ml PO Q12H PRN PRN Reason: Constipation Methylprednisolone Sodium Succinate (Solu-Medrol) 40 mg IVPUSH Q12H [facility]ST[facility] Ondansetron HCl (Zofran Odt) 4 mg PO Q4H PRN PRN Reason: nausea, able to take PO Ondansetron HCl (Zofran) 4 mg IV Q4H PRN PRN Reason: Nausea/Vomiting Pantoprazole Sodium (Protonix) 40 mg PO BID [facility] Assessment/Plan Comment:: I/P: Pneumonia: LLL -Likely component of chemical pneumonitis d/t inhalation of fumes at work -IV abx; zosyn, zithromax for antiinflammatory coverage also -Solumedrol -RT, aggressive pulmonary toilet -Supplemental oxygen PRN -IVF for rehydration Chronic conditions: ANCA vasculitis with chronic immunosuppression -continue immunosuppressants -Hold PO prednisone while receiving IV solumedrol -Likely atypical pneumonia due to immunocompromised state HTN- increase lisinopril dose, cont on amlodipine Other: DVT prophylax GI prophylax CM/SW consult for assist with DC planning Heart healthy diet Ambulate TID Follow am labs Patient is Full Code status <Eleonora Pinto - Last Filed: 03/28/17 17:24> H&P History of Present Illness - General Admit Problem/Dx: Admission Diagnosis/Problem Admission Diagnosis/Problem Pneumonia Exam - Vital Signs Vital Signs: Last Vital Signs Temp 37.4 C 03/28/17 15:18 Pulse 103 H 03/28/17 15:18 Resp 16 03/28/17 15:18 BP 145/82 H 03/28/17 15:18 Pulse Ox 93 L 03/28/17 15:18 - Patient Data Lab Results last 24 hrs: Laboratory Results - last 24 hr 03/28/17 03/28/17 Range/Units 11:50 11:50 Urine Color Light yellow (Yellow) Urine Appearance Clear (Clear) Urine pH 6.0 (5.0-8.0) Ur Specific [place] > or = 1.030 (1.005-1.030) Urine Protein 2+ H (Negative) Urine Glucose (UA) 1+ H (Negative) Urine Ketones Negative (Negative) Urine Occult Blood 2+ H (Negative) Urine Nitrite Negative (Negative) Urine Bilirubin Negative (Negative) Urine Urobilinogen 1.0 (0.2-1.0) Ur Leukocyte Esterase Negative (Negative) Urine Opiates Screen Presumptive positive H (NEGATIVE) Ur Buprenorphine Scrn Negative (NEGATIVE) Ur Oxycodone Screen Negative (NEGATIVE) Urine Methadone Screen Negative (NEGATIVE) Ur Propoxyphene Screen Negative (NEGATIVE) Ur Barbiturates Screen Negative (NEGATIVE) Ur Tricyclics Screen Negative (NEGATIVE) Ur Phencyclidine Scrn Negative (NEGATIVE) Ur Amphetamine Screen Negative (NEGATIVE) U Methamphetamines Scrn Negative (NEGATIVE) U Benzodiazepines Scrn Presumptive positive H (NEGATIVE) U Cocaine Metab Screen Negative (NEGATIVE) U Marijuana (THC) Screen Negative (NEGATIVE) Result Diagrams: 03/27/17 23:35 03/27/17 23:25 *Q Meaningful Use (ADM) - VTE *Q VTE Criteria *Q: - Stroke *Q Stroke Criteria *Q: - AMI *Q AMI Criteria *Q: Orders Last 24hrs: Active Orders 24 hr Category Date Time Status Patient Status [ADT] Routine ADT 03/28/17 09:55 Active Acapella [RT Chest Physiotherapy] [RC] .PRN Care 03/28/17 12:18 Active Ambulate [RC] ASDIRECTED Care 03/28/17 09:55 Active Antiembolic Devices [RC] PER UNIT ROUTINE Care 03/28/17 09:57 Inactive Cardiac Monitoring [RC] CONTINUOUS Care 03/28/17 09:55 Active Height and Weight [RC] 04 Care 03/28/17 09:55 Active Intake and Output [RC] 04,16 Care 03/28/17 09:55 Active Oxygen Therapy [RC] PRN Care 03/28/17 09:55 Active RT Aerosol Therapy [RC] .PRN Care 03/28/17 10:01 Active Up With Assistance [RC] ASDIRECTED Care 03/28/17 09:55 Active VTE/DVT Education [RC] PER UNIT ROUTINE Care 03/28/17 09:55 Active Vital Signs [RC] Q4HR Care 03/28/17 09:55 Active Consult to Case Management [CONS] Routine Cons 03/28/17 09:55 Active Consult to Truck Packer [CONS] Routine Cons 03/28/17 09:55 Active 2 Gram Sodium Diet [DIET] Diet 03/28/17 Lunch Active BASIC METABOLIC PANEL,BMP [CHEM] DAILY Lab 03/29/17 05:00 Ordered BASIC METABOLIC PANEL,BMP [CHEM] DAILY Lab 03/30/17 05:00 Ordered BASIC METABOLIC PANEL,BMP [CHEM] DAILY Lab 03/31/17 05:00 Ordered BASIC METABOLIC PANEL,BMP [CHEM] DAILY Lab 04/01/17 05:00 Ordered C-REACTIVE PROTEIN [CHEM] DAILY Lab 03/29/17 05:00 Ordered C-REACTIVE PROTEIN [CHEM] DAILY Lab 03/30/17 05:00 Ordered C-REACTIVE PROTEIN [CHEM] DAILY Lab 03/31/17 05:00 Ordered C-REACTIVE PROTEIN [CHEM] DAILY Lab 04/01/17 05:00 Ordered CBC W/O DIFF,HEMOGRAM [HEME] MOTH@0700 Lab 03/30/17 07:00 Ordered CBC W/O DIFF,HEMOGRAM [HEME] MOTH@0700 Lab 04/03/17 07:00 Ordered CBC W/O DIFF,HEMOGRAM [HEME] MOTH@0700 Lab 04/06/17 07:00 Ordered CBC W/O DIFF,HEMOGRAM [HEME] MOTH@0700 Lab 04/10/17 07:00 Ordered CBC W/O DIFF,HEMOGRAM [HEME] MOTH@0700 Lab 04/13/17 07:00 Ordered CBC W/O DIFF,HEMOGRAM [HEME] MOTH@0700 Lab 04/17/17 07:00 Ordered MAGNESIUM [CHEM] DAILY Lab 03/29/17 05:00 Ordered MAGNESIUM [CHEM] DAILY Lab 03/30/17 05:00 Ordered MAGNESIUM [CHEM] DAILY Lab 03/31/17 05:00 Ordered MAGNESIUM [CHEM] DAILY Lab 04/01/17 05:00 Ordered STREP PNEUMONIAE ANTIGEN [MREF] Routine Lab 03/28/17 11:50 Received Acetaminophen/HYDROcodone [[place] 325-5 MG] Med 03/28/17 09:55 Active 1 tab PO Q4H PRN Albuterol [Proventil Neb Soln] Med 03/28/17 09:55 Active 2.5 mg NEB Q2H PRN Azithromycin [Zithromax] 500 mg Med 03/28/17 11:00 Active Sodium Chloride 0.9% [Normal Saline] 250 ml IV Q24H Budesonide [Pulmicort] Med 03/28/17 21:00 Active 0.5 mg NEB BID Dextrose 5%-0.9% NaCl [Dextrose 5%-Normal Saline] 1,000 Med 03/28/17 11:00 Active ml IV ASDIRECTED Enoxaparin [Lovenox] Med 03/28/17 09:00 Active 40 mg SUBCUT DAILY HYDROmorphone [Dilaudid] Med 03/28/17 12:00 Active 0.5 mg IVPUSH Q4H PRN Ketorolac [Toradol] Med 03/28/17 12:00 Active 30 mg IVPUSH Q6H Lisinopril [Prinivil] Med 03/29/17 09:00 Active 40 mg PO DAILY Magnesium Hydroxide [Milk of Magnesia] Med 03/28/17 09:55 Active 30 ml PO Q12H PRN Ondansetron [Zofran ODT] Med 03/28/17 09:55 Active 4 mg PO Q4H PRN Ondansetron [Zofran] Med 03/28/17 09:55 Active 4 mg IV Q4H PRN Pantoprazole [ProTONIX] Med 03/28/17 21:00 Active 40 mg PO BID Piperacillin/Tazobactam [Zosyn] 4.5 gm Med 03/28/17 13:00 Active Sodium Chloride 0.9% [Normal Saline] 100 ml IV Q8H amLODIPine [Norvasc] Med 03/29/17 09:00 Active 5 mg PO DAILY methylPREDNISolone Sod Succ [Solu-MEDROL] Med 03/28/17 11:00 Active 40 mg IVPUSH Q12H K Pad [Heat Therapy] [OM.PC] Routine Oth 03/28/17 12:19 Ordered Resuscitation Status Routine Resus Stat 03/28/17 04:50 Ordered Medication Orders Hydrocodone Bitart/Acetaminophen ([place] 325-5 Mg) 1 tab PO Q4H PRN PRN Reason: Pain (moderate 4-6) Last Admin: 03/28/17 10:14 Dose: 1 tab Albuterol (Proventil Neb Soln) 2.5 mg NEB Q2H PRN PRN Reason: Shortness Of Breath/wheezing Amlodipine Besylate (Norvasc) 5 mg PO DAILY [facility] Budesonide (Pulmicort) 0.5 mg NEB BID [facility] Enoxaparin Sodium (Lovenox) 40 mg SUBCUT DAILY [facility] Last Admin: 03/28/17 10:15 Dose: Not Given Hydromorphone HCl (Dilaudid) 0.5 mg IVPUSH Q4H PRN PRN Reason: severe pain Last Admin: 03/28/17 13:56 Dose: 0.5 mg Levofloxacin/Dextrose 750 mg/ (Premix) 150 mls @ 100 mls/hr IV ONETIME ONE Stop: 03/28/17 00:41 Last Admin: 03/27/17 23:34 Dose: 100 mls/hr Azithromycin 500 mg/ Sodium (Chloride) 250 mls @ 250 mls/hr IV Q24H [facility] Last Admin: 03/28/17 11:10 Dose: 250 mls/hr Piperacillin Sod/Tazobactam (Sod 4.5 gm/ Sodium Chloride) 100 mls @ 25 mls/hr IV Q8H [facility] Last Admin: 03/28/17 12:45 Dose: 25 mls/hr Dextrose/Sodium Chloride (Dextrose 5%-Normal Saline) 1,000 mls @ 100 mls/hr IV ASDIRECTED [facility] Last Admin: 03/28/17 12:17 Dose: 100 mls/hr Infusion: 03/28/17 12:17 Dose: 100 mls/hr Admin: 03/28/17 11:14 Dose: 100 mls/hr Ketorolac Tromethamine (Toradol) 30 mg IVPUSH Q6H [facility] Stop: 03/29/17 06:01 Last Admin: 03/28/17 12:45 Dose: 30 mg Lisinopril (Prinivil) 40 mg PO DAILY [facility] Magnesium Hydroxide (Milk Of Magnesia) 30 ml PO Q12H PRN PRN Reason: Constipation Methylprednisolone Sodium Succinate (Solu-Medrol) 40 mg IVPUSH Q12H [facility] Last Admin: 03/28/17 11:10 Dose: 40 mg Ondansetron HCl (Zofran Odt) 4 mg PO Q4H PRN PRN Reason: nausea, able to take PO Ondansetron HCl (Zofran) 4 mg IV Q4H PRN PRN Reason: Nausea/Vomiting Pantoprazole Sodium (Protonix) 40 mg PO BID [facility] Assessment/Plan Comment:: Narcotic request is beyond the epected need of his current condition, will closely observed for drug seeking behavior.
[2017-03-28] MEDS: methylPREDNISolone Sodium Succinate 40 MG/1 ML SDV IVPUSH SCH ×2 (11:10→22:01)
[2017-03-28] MEDS: Azithromycin 500 MG in Sodium Chloride 0.9% 250 ML IV SCH (11:10)
[2017-03-28] MEDS: Dextrose 5%-0.9% NaCl 1,000 ML IV SCH ×3 (11:14→22:03)
[2017-03-28] MEDS ORDERED: predniSONE 20 MG Tab PO SCH (11:30)
[2017-03-28] MEDS ORDERED: Lisinopril 10 MG Tab PO SCH (11:30)
[2017-03-28] MEDS ORDERED: Ketorolac 60 MG/2 ML SDV IM SCH (12:00)
[2017-03-28] MEDS ORDERED: Lisinopril 20 MG Tab PO ONE (12:02)
[2017-03-28] MEDS ORDERED: Ketorolac 60 MG/2 ML SDV IM ONE (12:15)
--- NOTE | 2017-03-28 12:17 | CR ---
Chest: Two views of the chest were obtained. Comparison: Previous chest x-ray of 03/27/17. Heart size and mediastinum are normal. Previous cervical spine surgery is seen. Blunting of the right lateral costophrenic angle is seen which appears stable. Left lung base appears better aerated from prior exam with only minimal atelectasis now being seen. Lungs otherwise are clear. Impression: 1. Better aeration of the left lung base with only minimal atelectasis. 2. Other stable findings. Nothing acute is seen. Diagnostic code #2
[2017-03-28] MEDS ORDERED: Lisinopril 10 MG Tab PO ONE (12:45)
[2017-03-28] MEDS: Piperacillin/Tazobactam 4.5 GM in Sodium Chloride 0.9% 100 ML IV SCH ×2 (12:45→20:34)
[2017-03-28] MEDS: Ketorolac 30 MG/ML SDV IVPUSH SCH ×2 (12:45→17:43)
[2017-03-28] MEDS: HYDROmorphone 0.5 MG/0.5 ML Syringe IVPUSH PRN ×3 (13:56→20:33)
[2017-03-28] MEDS: Pantoprazole 40 MG Tab.CR PO SCH (20:32)
[2017-03-28] MEDS ORDERED: Budesonide 0.5 MG/2 ML Neb Susp NEB SCH (21:00)
[2017-03-28] MEDS: Albuterol 0.083% 2.5 MG/3 ML Neb Soln NEB PRN (21:34)
[2017-03-28] MEDS: Budesonide 0.5 MG/2 ML Neb Susp NEB SCH (21:34)
[2017-03-29] MEDS: Ketorolac 30 MG/ML SDV IVPUSH SCH ×2 (00:24→05:23)
[2017-03-29] MEDS: HYDROmorphone 0.5 MG/0.5 ML Syringe IVPUSH PRN ×2 (00:24→08:41)
[2017-03-29] MEDS: Piperacillin/Tazobactam 4.5 GM in Sodium Chloride 0.9% 100 ML IV SCH ×4 (05:22→21:10)
[2017-03-29] MEDS: Acetaminophen/HYDROcodone 325-5 MG Tab PO PRN ×2 (05:22→10:56)
[2017-03-29] MEDS: Budesonide 0.5 MG/2 ML Neb Susp NEB SCH ×2 (08:02→22:02)
[2017-03-29] MEDS: Albuterol 0.083% 2.5 MG/3 ML Neb Soln NEB PRN (08:02)
[2017-03-29] MEDS: Dextrose 5%-0.9% NaCl 1,000 ML IV SCH (08:38)
[2017-03-29] MEDS: Lisinopril 20 MG Tab PO SCH (08:46)
[2017-03-29] MEDS: amLODIPine 5 MG Tab PO SCH (08:46)
[2017-03-29] MEDS: Pantoprazole 40 MG Tab.CR PO SCH ×2 (08:46→21:11)
[2017-03-29] MEDS: Enoxaparin 40 MG/0.4 ML Syringe SUBCUT SCH (08:47)
[2017-03-29] MEDS: Docusate Sodium 100 MG Cap PO SCH ×2 (10:51→21:11)
[2017-03-29] MEDS: Metoprolol Succinate 50 MG Tab.ER PO SCH (10:52)
[2017-03-29] MEDS: Azithromycin 500 MG in Sodium Chloride 0.9% 250 ML IV SCH (10:55)
--- NOTE | 2017-03-29 12:22 | PCM.PN ---
<Patricia Armenta M - Last Filed: 03/29/17 12:24> - General Info Date of Service: 03/29/17 Admission Dx/Problem (Free Text): Admission Diagnosis/Problem Admission Diagnosis/Problem Pneumonia Patient is seen today. States pain to left chest is improved but still present. VSS. No n/v/d. Voiding without difficulty. Up and ambulatory, independently. Functional Status: Reports: tolerating diet, ambulating, urinating. Denies: new symptoms - Review of Systems General: Reports: Fatigue (improved) HEENT: Reports: no symptoms Pulmonary: Reports: shortness of breath, pleuritic chest pain (lt sided), cough. Denies: sputum, hemoptysis, wheezing Cardiovascular: Reports: No Symptoms Gastrointestinal: Reports: No symptoms Genitourinary: Reports: no symptoms Musculoskeletal: Reports: neck pain (chronic), back pain (chronic) Neurological: Reports: No Symptoms Psychiatric: Reports: no symptoms - Patient Data Vitals - most recent: Last Vital Signs Temp 98.1 F 03/29/17 10:54 Pulse 96 03/29/17 10:54 Resp 22 H 03/29/17 10:54 BP 136/90 03/29/17 10:54 Pulse Ox 94 L 03/29/17 10:54 Weight - most recent: 102.693 kg I&O - last 24 hours: Intake & Output 03/28/17 03/29/17 03/29/17 22:59 06:59 14:59 Intake Total 2634 1485 0 Output Total 900 Balance 1734 1485 0 Lab Results last 24 hrs: Laboratory Results - last 24 hr 03/28/17 03/28/17 03/29/17 Range/Units 11:50 11:50 04:33 WBC (4.23-9.07) K/mm3 RBC (4.63-6.08) M/mm3 Hgb (13.7-17.5) gm/L Hct (40.1-51.0) % MCV (79.0-92.2) fl MCH (25.7-32.2) pg MCHC (32.2-35.5) g/dl RDW Std Deviation (35.1-43.9) fL Plt Count (163-337) K/mm3 MPV (9.4-12.3) fl Neut % (Auto) (34.0-67.9) % Lymph % (Auto) (21.8-53.1) % [place] % (Auto) (5.3-12.2) % Eos % (Auto) (0.8-7.0) Baso % (Auto) (0.1-1.2) % Neut # (Auto) (1.78-5.38) K/mm3 Lymph # (Auto) (1.32-3.57) K/mm3 [place] # (Auto) (0.30-0.82) K/mm3 Eos # (Auto) (0.04-0.54) K/mm3 Baso # (Auto) (0.01-0.08) K/mm3 Manual Slide Review Sodium 138 (136-145) mEq/L Potassium 3.9 (3.5-5.1) mEq/L Chloride 108 H (98-107) mEq/L Carbon Dioxide 23 (21-32) mEq/L Anion Gap 10.9 (5-15) BUN 14 (7-18) mg/dL Creatinine 1.1 (0.7-1.3) mg/dL Est Cr Clr Drug Dosing 97.30 mL/min Estimated GFR (MDRD) > 60 (>60) mL/min BUN/Creatinine Ratio 12.7 L (14-18) Glucose 160 H (74-106) mg/dL Calcium 8.7 (8.5-10.1) mg/dL Magnesium 2.0 (1.8-2.4) mg/dl C-Reactive Protein 1.6 H* (<1.0) mg/dL Urine Color Light yellow (Yellow) Urine Appearance Clear (Clear) Urine pH 6.0 (5.0-8.0) Ur Specific [place] > or = 1.030 (1.005-1.030) Urine Protein 2+ H (Negative) Urine Glucose (UA) 1+ H (Negative) Urine Ketones Negative (Negative) Urine Occult Blood 2+ H (Negative) Urine Nitrite Negative (Negative) Urine Bilirubin Negative (Negative) Urine Urobilinogen 1.0 (0.2-1.0) Ur Leukocyte Esterase Negative (Negative) Urine Opiates Screen Presumptive positive H (NEGATIVE) Ur Buprenorphine Scrn Negative (NEGATIVE) Ur Oxycodone Screen Negative (NEGATIVE) Urine Methadone Screen Negative (NEGATIVE) Ur Propoxyphene Screen Negative (NEGATIVE) Ur Barbiturates Screen Negative (NEGATIVE) Ur Tricyclics Screen Negative (NEGATIVE) Ur Phencyclidine Scrn Negative (NEGATIVE) Ur Amphetamine Screen Negative (NEGATIVE) U Methamphetamines Scrn Negative (NEGATIVE) U Benzodiazepines Scrn Presumptive positive H (NEGATIVE) U Cocaine Metab Screen Negative (NEGATIVE) U Marijuana (THC) Screen Negative (NEGATIVE) 03/29/17 Range/Units 04:33 WBC 10.40 H (4.23-9.07) K/mm3 RBC 3.60 L (4.63-6.08) M/mm3 Hgb 10.9 L (13.7-17.5) gm/L Hct 33.9 L (40.1-51.0) % MCV 94.2 H (79.0-92.2) fl MCH 30.3 (25.7-32.2) pg MCHC 32.2 (32.2-35.5) g/dl RDW Std Deviation 47.2 H (35.1-43.9) fL Plt Count 219 (163-337) K/mm3 MPV 11.2 (9.4-12.3) fl Neut % (Auto) 92.0 H (34.0-67.9) % Lymph % (Auto) 3.9 L (21.8-53.1) % [place] % (Auto) 3.8 L (5.3-12.2) % Eos % (Auto) 0 L (0.8-7.0) Baso % (Auto) 0.1 (0.1-1.2) % Neut # (Auto) 9.57 H (1.78-5.38) K/mm3 Lymph # (Auto) 0.41 L (1.32-3.57) K/mm3 [place] # (Auto) 0.39 (0.30-0.82) K/mm3 Eos # (Auto) 0.00 L (0.04-0.54) K/mm3 Baso # (Auto) 0.01 (0.01-0.08) K/mm3 Manual Slide Review Abnormal smear Sodium (136-145) mEq/L Potassium (3.5-5.1) mEq/L Chloride (98-107) mEq/L Carbon Dioxide (21-32) mEq/L Anion Gap (5-15) BUN (7-18) mg/dL Creatinine (0.7-1.3) mg/dL Est Cr Clr Drug Dosing mL/min Estimated GFR (MDRD) (>60) mL/min BUN/Creatinine Ratio (14-18) Glucose (74-106) mg/dL Calcium (8.5-10.1) mg/dL Magnesium (1.8-2.4) mg/dl C-Reactive Protein (<1.0) mg/dL Urine Color (Yellow) Urine Appearance (Clear) Urine pH (5.0-8.0) Ur Specific [place] (1.005-1.030) Urine Protein (Negative) Urine Glucose (UA) (Negative) Urine Ketones (Negative) Urine Occult Blood (Negative) Urine Nitrite (Negative) Urine Bilirubin (Negative) Urine Urobilinogen (0.2-1.0) Ur Leukocyte Esterase (Negative) Urine Opiates Screen (NEGATIVE) Ur Buprenorphine Scrn (NEGATIVE) Ur Oxycodone Screen (NEGATIVE) Urine Methadone Screen (NEGATIVE) Ur Propoxyphene Screen (NEGATIVE) Ur Barbiturates Screen (NEGATIVE) Ur Tricyclics Screen (NEGATIVE) Ur Phencyclidine Scrn (NEGATIVE) Ur Amphetamine Screen (NEGATIVE) U Methamphetamines Scrn (NEGATIVE) U Benzodiazepines Scrn (NEGATIVE) U Cocaine Metab Screen (NEGATIVE) U Marijuana (THC) Screen (NEGATIVE) Gus Results last 24 hrs: Microbiology 03/28/17 11:50 Streptococcus pneumoniae Antigen (M - Final Urine - Bladder Med Orders - Current: Current Medications Hydrocodone Bitart/Acetaminophen ([place] 325-5 Mg) 1 tab PO Q4H PRN PRN Reason: Pain (moderate 4-6) Last Admin: 03/29/17 10:56 Dose: 1 tab Albuterol (Proventil Neb Soln) 2.5 mg NEB Q2H PRN PRN Reason: Shortness Of Breath/wheezing Last Admin: 03/29/17 08:02 Dose: 2.5 mg Amlodipine Besylate (Norvasc) 5 mg PO DAILY [facility] Last Admin: 03/29/17 08:46 Dose: 5 mg Budesonide (Pulmicort) 0.5 mg NEB BID [facility] Last Admin: 03/29/17 08:02 Dose: 0.5 mg Docusate Sodium (Colace) 100 mg PO BID [facility] Last Admin: 03/29/17 10:51 Dose: 100 mg Levofloxacin/Dextrose 750 mg/ (Premix) 150 mls @ 100 mls/hr IV ONETIME ONE Stop: 03/28/17 00:41 Last Admin: 03/27/17 23:34 Dose: 100 mls/hr Azithromycin 500 mg/ Sodium (Chloride) 250 mls @ 250 mls/hr IV Q24H [facility] Last Admin: 03/29/17 10:55 Dose: 250 mls/hr Piperacillin Sod/Tazobactam (Sod 4.5 gm/ Sodium Chloride) 100 mls @ 25 mls/hr IV Q8H [facility] Last Admin: 03/29/17 05:22 Dose: 25 mls/hr Lisinopril (Prinivil) 40 mg PO DAILY [facility] Last Admin: 03/29/17 08:46 Dose: 40 mg Magnesium Hydroxide (Milk Of Magnesia) 30 ml PO Q12H PRN PRN Reason: Constipation Methylprednisolone Sodium Succinate (Solu-Medrol) 40 mg IVPUSH DAILY [facility] Metoprolol Succinate (Toprol Xl) 50 mg PO DAILY [facility] Last Admin: 03/29/17 10:52 Dose: 50 mg Ondansetron HCl (Zofran Odt) 4 mg PO Q4H PRN PRN Reason: nausea, able to take PO Ondansetron HCl (Zofran) 4 mg IV Q4H PRN PRN Reason: Nausea/Vomiting Last Admin: 03/28/17 22:01 Dose: 4 mg Pantoprazole Sodium (Protonix) 40 mg PO BID [facility] Last Admin: 03/29/17 08:46 Dose: 40 mg Saccharomyces Boulardii (Florastor) 250 mg PO BID [facility] Discontinued Medications Acetaminophen (Tylenol) 975 mg PO NOW ONE Stop: 03/27/17 23:12 Last Admin: 03/27/17 23:30 Dose: 975 mg Albuterol (Proventil Neb Soln) 1.25 mg NEB Q4HRRT PRN PRN Reason: Shortness of Breath Budesonide (Pulmicort) 0.5 mg NEB BIDRT [facility] Enoxaparin Sodium (Lovenox) 40 mg SUBCUT DAILY [facility] Last Admin: 03/29/17 08:47 Dose: Not Given Hydromorphone HCl (Dilaudid) 0.5 mg IVPUSH ONETIME ONE Stop: 03/28/17 00:06 Last Admin: 03/28/17 09:08 Dose: Not Given Hydromorphone HCl (Dilaudid) Confirm Administered Dose 0.5 mg .ROUTE .[facility] ONE Stop: 03/28/17 02:42 Last Admin: 03/28/17 09:10 Dose: Not Given Hydromorphone HCl (Dilaudid) 1 mg IVPUSH ONETIME ONE Stop: 03/28/17 05:19 Last Admin: 03/28/17 05:24 Dose: 1 mg Hydromorphone HCl (Dilaudid) 0.5 mg IVPUSH Q4H PRN PRN Reason: severe pain Last Admin: 03/29/17 08:41 Dose: 0.5 mg Dextrose/Sodium Chloride (Dextrose 5%-Normal Saline) 1,000 mls @ 500 mls/hr IV ASDIRECTED [facility] Last Admin: 03/27/17 23:27 Dose: 500 mls/hr Lactated Ringer's (Ringers, Lactated) Confirm Administered Dose 0 mls @ as directed .ROUTE .[facility] ONE Stop: 03/28/17 02:42 Last Admin: 03/28/17 09:10 Dose: Not Given Piperacillin Sod/Tazobactam (Sod 4.5 gm/ Sodium Chloride) 100 mls @ 200 mls/hr IV ONETIME ONE Stop: 03/28/17 04:48 Last Admin: 03/28/17 05:19 Dose: 200 mls/hr Dextrose/Sodium Chloride (Dextrose 5%-Normal Saline) 1,000 mls @ 125 mls/hr IV ONETIME ONE Stop: 03/28/17 12:19 Last Admin: 03/28/17 04:22 Dose: 125 mls/hr Dextrose/Sodium Chloride (Dextrose 5%-Normal Saline) 1,000 mls @ 125 mls/hr IV ASDIRECTED [facility] Dextrose/Sodium Chloride (Dextrose 5%-Normal Saline) 1,000 mls @ 100 mls/hr IV ASDIRECTED [facility] Last Admin: 03/29/17 08:38 Dose: 100 mls/hr Ketorolac Tromethamine (Toradol) Confirm Administered Dose 30 mg .ROUTE .[facility] ONE Stop: 03/28/17 00:55 Last Admin: 03/28/17 09:09 Dose: Not Given Ketorolac Tromethamine (Toradol) 60 mg IM Q6H [facility] Stop: 03/29/17 00:01 Last Admin: 03/28/17 12:21 Dose: Not Given Ketorolac Tromethamine (Toradol) 30 mg IVPUSH Q6H [facility] Stop: 03/29/17 06:01 Last Admin: 03/29/17 05:23 Dose: 30 mg Lisinopril (Prinivil) 10 mg PO BID [facility] Last Admin: 03/28/17 11:11 Dose: 10 mg Lisinopril (Prinivil) 30 mg PO NOW ONE Stop: 03/28/17 12:46 Last Admin: 03/28/17 12:50 Dose: 30 mg Lorazepam (Ativan) Confirm Administered Dose 2 mg .ROUTE .[facility] ONE Stop: 03/28/17 02:43 Last Admin: 03/28/17 09:10 Dose: Not Given Lorazepam (Ativan) Confirm Administered Dose 2 mg .ROUTE .[facility] ONE Stop: 03/28/17 02:44 Last Admin: 03/28/17 09:10 Dose: Not Given Methylprednisolone Sodium Succinate (Solu-Medrol) 62.5 mg IVPUSH ONETIME ONE Stop: 03/28/17 03:44 Last Admin: 03/28/17 04:18 Dose: 62.5 mg Methylprednisolone Sodium Succinate (Solu-Medrol) 40 mg IVPUSH Q12H [facility] Last Admin: 03/28/17 22:01 Dose: 40 mg Metoclopramide HCl (Reglan) 10 mg IVPUSH ONETIME ONE Stop: 03/27/17 23:12 Last Admin: 03/27/17 23:31 Dose: 10 mg Metoclopramide HCl (Reglan) 10 mg IVPUSH ONETIME ONE Stop: 03/28/17 00:07 Last Admin: 03/28/17 09:09 Dose: Not Given Pneumococcal Polyvalent Vaccine (Pneumovax 23) 0.5 ml IM .ONCE ONE Stop: 03/28/17 04:53 Prednisone (Prednisone) 20 mg PO DAILY [facility] - Exam Quality Assessment: DVT prophylaxis (patient refuses lovenox and also refuses SCD's for VTE prophylaxis - reviewed risks of VTE with him including blood clot development, PE, . Continues to refuse. Encourge ambulation, he is up and ambulatory independently) General: alert, oriented, cooperative, no acute distress HEENT: Pupils equal, Pupils reactive, EOMI, Mucous membr. moist/pink Neck: supple Lungs: Clear to auscultation, Normal respiratory effort, Decreased breath sounds (bases) Cardiovascular: Regular Rate, Regular Rhythm, No Murmurs Abdomen: bowel sounds present, soft, no tenderness (Male) Exam: Deferred Extremities: no edema, no calf tenderness Peripheral Pulses: 1+: dorsalis pedis (L), dorsalis pedis (R) Skin: warm, dry, intact Neurological: no new focal deficit Psy/Mental Status: alert, normal affect, normal mood - Problem List & Annotations (1) Acute pneumonitis due to chemical fumes SNOMED Code(s): 015764042 Code(s): J68.0 - BRONCHITIS & PNEUMONITIS D/T CHEMICALS, GAS, FUMES & VAPORS Status: Acute Priority: High Current Visit: Yes (2) Pneumonia SNOMED Code(s): 580658369 Code(s): J18.9 - PNEUMONIA, UNSPECIFIED ORGANISM Status: Acute Priority: High Current Visit: Yes Qualifiers: Pneumonia type: due to unspecified organism Laterality: left Lung location: lower lobe of lung Qualified Code(s): J18.1 - Lobar pneumonia, unspecified organism (3) ANCA-positive vasculitis SNOMED Code(s): 385769929, 424303576 Code(s): I77.6 - ARTERITIS, UNSPECIFIED Status: Chronic Priority: High Current Visit: Yes (4) Immunocompromised due to corticosteroids SNOMED Code(s): 670334603 Code(s): T38.0X1A - POISONING BY GLUCOCORT/SYNTH ANALOG, ACCIDENTAL, INIT; D84.8 - OTHER SPECIFIED IMMUNODEFICIENCIES Status: Chronic Priority: High Current Visit: Yes (5) Hypertension SNOMED Code(s): 02448958 Code(s): I10 - ESSENTIAL (PRIMARY) HYPERTENSION Status: Chronic Priority : High Current Visit: Yes Qualifiers: Hypertension type: essential hypertension Qualified Code(s): I10 - Essential (primary) hypertension (6) Hematuria SNOMED Code(s): 35246488 Code(s): R31.9 - HEMATURIA, UNSPECIFIED Status: Acute Priority: High Current Visit: Yes - Problem List Review Problem List Initiated/Reviewed/Updated: Yes - My Orders Last 24 Hours: My Active Orders 03/28/17 12:18 Acapella [RT Chest Physiotherapy] [RC] .PRN 03/28/17 12:19 K Pad [Heat Therapy] [OM.] Routine 03/28/17 13:00 Piperacillin/Tazobactam [Zosyn] 4.5 gm Sodium Chloride 0.9% [Normal Saline] 100 ml IV Q8H 03/28/17 21:00 Budesonide [Pulmicort] 0.5 mg NEB BID Pantoprazole [ProTONIX] 40 mg PO BID 03/29/17 09:00 Docusate Sodium [Colace] 100 mg PO BID Lisinopril [Prinivil] 40 mg PO DAILY amLODIPine [Norvasc] 5 mg PO DAILY 03/29/17 10:30 Metoprolol Succinate [Toprol XL] 50 mg PO DAILY 03/29/17 10:45 Antiembolic Devices [RC] PER UNIT ROUTINE SCD [Sequential Compression Device] [OM.PC] Routine 03/29/17 13:00 Saccharomyces Boulardii [Florastor] 250 mg PO BID 03/30/17 05:00 BASIC METABOLIC PANEL,BMP [CHEM] DAILY C-REACTIVE PROTEIN [CHEM] DAILY MAGNESIUM [CHEM] DAILY 03/30/17 09:00 methylPREDNISolone Sod Succ [Solu-MEDROL] 40 mg IVPUSH DAILY 03/31/17 05:00 BASIC METABOLIC PANEL,BMP [CHEM] DAILY C-REACTIVE PROTEIN [CHEM] DAILY MAGNESIUM [CHEM] DAILY 04/01/17 05:00 BASIC METABOLIC PANEL,BMP [CHEM] DAILY C-REACTIVE PROTEIN [CHEM] DAILY MAGNESIUM [CHEM] DAILY - Plan Plan:: I/P: Pneumonia: LLL -Likely component of chemical pneumonitis d/t inhalation of fumes at work -IV abx; zosyn, zithromax for antiinflammatory coverage also -Solumedrol- decrease dose today with plans for prednisone taper on discharge -RT, aggressive pulmonary toilet -Supplemental oxygen PRN -IVF for rehydration---will DC IVF today -Repeat CXR done yesterday is without infiltrations/consolidations; based on temp, SOB on presentation, exposure- treating like presumed pneumonia/chemical pneumonitis as above. 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 drug seeking behavior Patient on chronic opioid therapy at home Continues to request pain medications both oral and IV; reviewed with him that goal is to be off of IV pain medications for discharge and dilaudid will be discontinued today. Chart review shows multiple ER visits with ? of drug seeking behaviors in the past UDS done yesterday was + for opiates and benzos; both which he rec'd in the ED, otherwise was negative. Other: DVT prophylax--patient refuses lovenox and SCD's, reviewed risks with patient. He is ambulating independently, encouraged cont to ambulate QID. GI prophylax CM/SW consult for assist with DC planning-- plan for DC home tomorrow. Heart healthy diet Ambulate QID Follow am labs Patient is Full Code status <Eleonora Pinto M - Last Filed: 03/29/17 13:44> - Patient Data Vitals - most recent: Last Vital Signs Temp 36.7 C 03/29/17 10:54 Pulse 96 03/29/17 10:54 Resp 22 H 03/29/17 10:54 BP 136/90 03/29/17 10:54 Pulse Ox 94 L 03/29/17 10:54 I&O - last 24 hours: Intake & Output 03/28/17 03/29/17 03/29/17 22:59 06:59 14:59 Intake Total 2634 1485 0 Output Total 900 Balance 1734 1485 0 Lab Results last 24 hrs: Laboratory Results - last 24 hr 03/28/17 03/29/17 03/29/17 Range/Units 11:50 04:33 04:33 WBC 10.40 H (4.23-9.07) K/mm3 RBC 3.60 L (4.63-6.08) M/mm3 Hgb 10.9 L (13.7-17.5) gm/L Hct 33.9 L (40.1-51.0) % MCV 94.2 H (79.0-92.2) fl MCH 30.3 (25.7-32.2) pg MCHC 32.2 (32.2-35.5) g/dl RDW Std Deviation 47.2 H (35.1-43.9) fL Plt Count 219 (163-337) K/mm3 MPV 11.2 (9.4-12.3) fl Neut % (Auto) 92.0 H (34.0-67.9) % Lymph % (Auto) 3.9 L (21.8-53.1) % [place] % (Auto) 3.8 L (5.3-12.2) % Eos % (Auto) 0 L (0.8-7.0) Baso % (Auto) 0.1 (0.1-1.2) % Neut # (Auto) 9.57 H (1.78-5.38) K/mm3 Lymph # (Auto) 0.41 L (1.32-3.57) K/mm3 [place] # (Auto) 0.39 (0.30-0.82) K/mm3 Eos # (Auto) 0.00 L (0.04-0.54) K/mm3 Baso # (Auto) 0.01 (0.01-0.08) K/mm3 Manual Slide Review Abnormal smear Sodium 138 (136-145) mEq/L Potassium 3.9 (3.5-5.1) mEq/L Chloride 108 H (98-107) mEq/L Carbon Dioxide 23 (21-32) mEq/L Anion Gap 10.9 (5-15) BUN 14 (7-18) mg/dL Creatinine 1.1 (0.7-1.3) mg/dL Est Cr Clr Drug Dosing 97.30 mL/min Estimated GFR (MDRD) > 60 (>60) mL/min BUN/Creatinine Ratio 12.7 L (14-18) Glucose 160 H (74-106) mg/dL Calcium 8.7 (8.5-10.1) mg/dL Magnesium 2.0 (1.8-2.4) mg/dl C-Reactive Protein 1.6 H* (<1.0) mg/dL Urine Opiates Screen Presumptive positive H (NEGATIVE) Ur Buprenorphine Scrn Negative (NEGATIVE) Ur Oxycodone Screen Negative (NEGATIVE) Urine Methadone Screen Negative (NEGATIVE) Ur Propoxyphene Screen Negative (NEGATIVE) Ur Barbiturates Screen Negative (NEGATIVE) Ur Tricyclics Screen Negative (NEGATIVE) Ur Phencyclidine Scrn Negative (NEGATIVE) Ur Amphetamine Screen Negative (NEGATIVE) U Methamphetamines Scrn Negative (NEGATIVE) U Benzodiazepines Scrn Presumptive positive H (NEGATIVE) U Cocaine Metab Screen Negative (NEGATIVE) U Marijuana (THC) Screen Negative (NEGATIVE) Gus Results last 24 hrs: Microbiology 03/28/17 11:50 Streptococcus pneumoniae Antigen (M - Final Urine - Bladder Med Orders - Current: Current Medications Albuterol (Proventil Neb Soln) 2.5 mg NEB Q2H PRN PRN Reason: Shortness Of Breath/wheezing Last Admin: 03/29/17 08:02 Dose: 2.5 mg Amlodipine Besylate (Norvasc) 5 mg PO DAILY [facility] Last Admin: 03/29/17 08:46 Dose: 5 mg Budesonide (Pulmicort) 0.5 mg NEB BID [facility] Last Admin: 03/29/17 08:02 Dose: 0.5 mg Docusate Sodium (Colace) 100 mg PO BID [facility] Last Admin: 03/29/17 10:51 Dose: 100 mg Levofloxacin/Dextrose 750 mg/ (Premix) 150 mls @ 100 mls/hr IV ONETIME ONE Stop: 03/28/17 00:41 Last Admin: 03/27/17 23:34 Dose: 100 mls/hr Azithromycin 500 mg/ Sodium (Chloride) 250 mls @ 250 mls/hr IV Q24H [facility] Last Admin: 03/29/17 10:55 Dose: 250 mls/hr Piperacillin Sod/Tazobactam (Sod 4.5 gm/ Sodium Chloride) 100 mls @ 25 mls/hr IV Q8H [facility] Last Admin: 03/29/17 05:22 Dose: 25 mls/hr Lisinopril (Prinivil) 40 mg PO DAILY [facility] Last Admin: 03/29/17 08:46 Dose: 40 mg Magnesium Hydroxide (Milk Of Magnesia) 30 ml PO Q12H PRN PRN Reason: Constipation Methylprednisolone Sodium Succinate (Solu-Medrol) 40 mg IVPUSH DAILY [facility] Metoprolol Succinate (Toprol Xl) 50 mg PO DAILY [facility] Last Admin: 03/29/17 10:52 Dose: 50 mg Ondansetron HCl (Zofran Odt) 4 mg PO Q4H PRN PRN Reason: nausea, able to take PO Ondansetron HCl (Zofran) 4 mg IV Q4H PRN PRN Reason: Nausea/Vomiting Last Admin: 03/28/17 22:01 Dose: 4 mg Oxycodone/Acetaminophen (Percocet 325-5 Mg) 1 tab PO Q4H PRN PRN Reason: Pain Pantoprazole Sodium (Protonix) 40 mg PO BID [facility] Last Admin: 03/29/17 08:46 Dose: 40 mg Saccharomyces Boulardii (Florastor) 250 mg PO BID [facility] Discontinued Medications Acetaminophen (Tylenol) 975 mg PO NOW ONE Stop: 03/27/17 23:12 Last Admin: 03/27/17 23:30 Dose: 975 mg Hydrocodone Bitart/Acetaminophen ([place] 325-5 Mg) 1 tab PO Q4H PRN PRN Reason: Pain (moderate 4-6) Last Admin: 03/29/17 10:56 Dose: 1 tab Albuterol (Proventil Neb Soln) 1.25 mg NEB Q4HRRT PRN PRN Reason: Shortness of Breath Budesonide (Pulmicort) 0.5 mg NEB BIDRT [facility] Enoxaparin Sodium (Lovenox) 40 mg SUBCUT DAILY [facility] Last Admin: 03/29/17 08:47 Dose: Not Given Hydromorphone HCl (Dilaudid) 0.5 mg IVPUSH ONETIME ONE Stop: 03/28/17 00:06 Last Admin: 03/28/17 09:08 Dose: Not Given Hydromorphone HCl (Dilaudid) Confirm Administered Dose 0.5 mg .ROUTE .[facility] ONE Stop: 03/28/17 02:42 Last Admin: 03/28/17 09:10 Dose: Not Given Hydromorphone HCl (Dilaudid) 1 mg IVPUSH ONETIME ONE Stop: 03/28/17 05:19 Last Admin: 03/28/17 05:24 Dose: 1 mg Hydromorphone HCl (Dilaudid) 0.5 mg IVPUSH Q4H PRN PRN Reason: severe pain Last Admin: 03/29/17 08:41 Dose: 0.5 mg Dextrose/Sodium Chloride (Dextrose 5%-Normal Saline) 1,000 mls @ 500 mls/hr IV ASDIRECTED [facility] Last Admin: 03/27/17 23:27 Dose: 500 mls/hr Lactated Ringer's (Ringers, Lactated) Confirm Administered Dose 0 mls @ as directed .ROUTE .[facility] ONE Stop: 03/28/17 02:42 Last Admin: 03/28/17 09:10 Dose: Not Given Piperacillin Sod/Tazobactam (Sod 4.5 gm/ Sodium Chloride) 100 mls @ 200 mls/hr IV ONETIME ONE Stop: 03/28/17 04:48 Last Admin: 03/28/17 05:19 Dose: 200 mls/hr Dextrose/Sodium Chloride (Dextrose 5%-Normal Saline) 1,000 mls @ 125 mls/hr IV ONETIME ONE Stop: 03/28/17 12:19 Last Admin: 03/28/17 04:22 Dose: 125 mls/hr Dextrose/Sodium Chloride (Dextrose 5%-Normal Saline) 1,000 mls @ 125 mls/hr IV ASDIRECTED TRISTEN Dextrose/Sodium Chloride (Dextrose 5%-Normal Saline) 1,000 mls @ 100 mls/hr IV ASDIRECTED [facility] Last Admin: 03/29/17 08:38 Dose: 100 mls/hr Ketorolac Tromethamine (Toradol) Confirm Administered Dose 30 mg .ROUTE .[facility] ONE Stop: 03/28/17 00:55 Last Admin: 03/28/17 09:09 Dose: Not Given Ketorolac Tromethamine (Toradol) 60 mg IM Q6H TRISTEN Stop: 03/29/17 00:01 Last Admin: 03/28/17 12:21 Dose: Not Given Ketorolac Tromethamine (Toradol) 30 mg IVPUSH Q6H TRISTEN Stop: 03/29/17 06:01 Last Admin: 03/29/17 05:23 Dose: 30 mg Lisinopril (Prinivil) 10 mg PO BID TRISTEN Last Admin: 03/28/17 11:11 Dose: 10 mg Lisinopril (Prinivil) 30 mg PO NOW ONE Stop: 03/28/17 12:46 Last Admin: 03/28/17 12:50 Dose: 30 mg Lorazepam (Ativan) Confirm Administered Dose 2 mg .ROUTE .STK-MED ONE Stop: 03/28/17 02:43 Last Admin: 03/28/17 09:10 Dose: Not Given Lorazepam (Ativan) Confirm Administered Dose 2 mg .ROUTE .STK-MED ONE Stop: 03/28/17 02:44 Last Admin: 03/28/17 09:10 Dose: Not Given Methylprednisolone Sodium Succinate (Solu-Medrol) 62.5 mg IVPUSH ONETIME ONE Stop: 03/28/17 03:44 Last Admin: 03/28/17 04:18 Dose: 62.5 mg Methylprednisolone Sodium Succinate (Solu-Medrol) 40 mg IVPUSH Q12H [facility] Last Admin: 03/28/17 22:01 Dose: 40 mg Metoclopramide HCl (Reglan) 10 mg IVPUSH ONETIME ONE Stop: 03/27/17 23:12 Last Admin: 03/27/17 23:31 Dose: 10 mg Metoclopramide HCl (Reglan) 10 mg IVPUSH ONETIME ONE Stop: 03/28/17 00:07 Last Admin: 03/28/17 09:09 Dose: Not Given Pneumococcal Polyvalent Vaccine (Pneumovax 23) 0.5 ml IM .ONCE ONE Stop: 03/28/17 04:53 Prednisone (Prednisone) 20 mg PO DAILY [facility] - My Orders Last 24 Hours: My Active Orders 03/30/17 07:00 CBC W/O DIFF,HEMOGRAM [HEME] MOTH@0700 04/03/17 07:00 CBC W/O DIFF,HEMOGRAM [HEME] MOTH@0700 04/06/17 07:00 CBC W/O DIFF,HEMOGRAM [HEME] MOTH@0700 04/10/17 07:00 CBC W/O DIFF,HEMOGRAM [HEME] MOTH@0700 04/13/17 07:00 CBC W/O DIFF,HEMOGRAM [HEME] MOTH@0700 04/17/17 07:00 CBC W/O DIFF,HEMOGRAM [HEME] MOTH@0700 - Plan Plan:: DC tomorrow, agree with above.
[2017-03-29] MEDS: Acetaminophen/oxyCODONE 325-5 MG Tab PO PRN ×2 (13:43→19:50)
[2017-03-29] MEDS: Saccharomyces Boulardii (Probiotic) 250 MG Cap PO SCH ×2 (13:46→21:11)
[2017-03-29] MEDS ORDERED: Acetaminophen 325 MG Tab PO PRN (20:55)
[2017-03-30] MEDS: Acetaminophen/oxyCODONE 325-5 MG Tab PO PRN ×3 (00:44→11:19)
[2017-03-30] MEDS: Piperacillin/Tazobactam 4.5 GM in Sodium Chloride 0.9% 100 ML IV SCH (06:11)
[2017-03-30] MEDS: Albuterol 0.083% 2.5 MG/3 ML Neb Soln NEB PRN (08:52)
[2017-03-30] MEDS: Budesonide 0.5 MG/2 ML Neb Susp NEB SCH (08:54)
[2017-03-30] MEDS: Saccharomyces Boulardii (Probiotic) 250 MG Cap PO SCH (09:21)
[2017-03-30] MEDS: Docusate Sodium 100 MG Cap PO SCH (09:21)
[2017-03-30] MEDS: amLODIPine 5 MG Tab PO SCH (09:24)
[2017-03-30 09:25] VITALS: BP 133/88
[2017-03-30] MEDS: Lisinopril 20 MG Tab PO SCH (09:25)
[2017-03-30] MEDS: Pantoprazole 40 MG Tab.CR PO SCH (09:25)
[2017-03-30] MEDS: methylPREDNISolone Sodium Succinate 40 MG/1 ML SDV IVPUSH SCH ×2 (09:25→09:28)
[2017-03-30] MEDS: Metoprolol Succinate 50 MG Tab.ER PO SCH (09:29)
--- NOTE | 2017-03-30 17:11 | PCM.DCSUM1 ---
<Eleonora Pinto - Last Filed: 03/30/17 19:58> Discharge Summary - Hospital Course Free Text/Narrative:: Responded well to therapy, on occasion would request narcotics without obvious need. - Discharge Data Discharge Disposition: Home, Self-Care 01 Condition: Good - Patient Summary/Data Consults: Consultations 03/28/17 09:55 Consult to Case Management [CONS] Routine Consult to Shot Bagger [CONS] Routine - Discharge Plan Prescriptions/Med Rec: Albuterol [IJD: Ventolin HFA] 2 puff INH QID #18 gm Azithromycin [Zithromax] 500 mg PO DAILY #5 tablet Lisinopril [Prinivil] 40 mg PO DAILY #40 tablet Metoprolol Succinate [Toprol XL] 50 mg PO DAILY #30 tab.er Prednisone [IJD: Prednisone] 10 mg PO DAILY #30 tab Home Medications: Home Meds Cyclophosphamide 50 mg PO DAILY 04/25/16 [History] Pantoprazole Sodium [Protonix] 40 mg PO BID 04/25/16 [History] predniSONE [Prednisone] 20 mg PO DAILY 04/25/16 [History] amLODIPine [Norvasc] 5 mg PO DAILY #30 tablet 03/15/17 [Rx] Hydrocodone/Acetaminophen [Hydrocodon-Acetaminophen 5-325] 1 each PO Q4H PRN 07/06 [History] Albuterol [IJD: Ventolin HFA] 2 puff INH QID #18 gm 03/30/17 [Rx] Azithromycin [Zithromax] 500 mg PO DAILY #5 tablet 03/30/17 [Rx] Lisinopril [Prinivil] 40 mg PO DAILY #40 tablet 03/30/17 [Rx] Metoprolol Succinate [Toprol XL] 50 mg PO DAILY #30 tab.er 03/30/17 [Rx] Prednisone [IJD: Prednisone] 10 mg PO DAILY #30 tab 03/30/17 [Rx] Patient Handouts: Hypertension, [id number], Pneumonitis, Community-Acquired Pneumonia, Adult, [id number] Forms: ED Department Discharge Referrals: Julito Hatch PA-C [Primary Care Provider] - 04/05/17 12:45 pm - Patient Data Vitals - Most Recent: Last Vital Signs Temp 37.1 C 03/30/17 08:20 Pulse 79 03/30/17 09:29 Resp 22 H 03/30/17 08:20 BP 133/88 03/30/17 09:29 Pulse Ox 94 L 03/30/17 08:54 I&O - Last 24 hours: Intake & Output 03/30/17 03/30/17 03/30/17 06:59 14:59 22:59 Intake Total 275 120 Output Total 425 Balance 275 -305 Lab Results - Last 24 hrs: Laboratory Results - last 24 hr 03/30/17 03/30/17 Range/Units 07:54 07:54 WBC 4.76 (4.23-9.07) K/mm3 RBC 3.61 L (4.63-6.08) M/mm3 Hgb 10.9 L (13.7-17.5) gm/L Hct 34.5 L (40.1-51.0) % MCV 95.6 H (79.0-92.2) fl MCH 30.2 (25.7-32.2) pg MCHC 31.6 L (32.2-35.5) g/dl RDW Std Deviation 49.2 H (35.1-43.9) fL Plt Count 199 (163-337) K/mm3 MPV 10.1 (9.4-12.3) fl Sodium 142 (136-145) mEq/L Potassium 3.8 (3.5-5.1) mEq/L Chloride 108 H (98-107) mEq/L Carbon Dioxide 30 (21-32) mEq/L Anion Gap 7.8 (5-15) BUN 16 (7-18) mg/dL Creatinine 1.1 (0.7-1.3) mg/dL Est Cr Clr Drug Dosing 97.30 mL/min Estimated GFR (MDRD) > 60 (>60) mL/min BUN/Creatinine Ratio 14.5 (14-18) Glucose 98 (74-106) mg/dL Calcium 8.7 (8.5-10.1) mg/dL Magnesium 1.9 (1.8-2.4) mg/dl C-Reactive Protein 0.5 (<1.0) mg/dL Med Orders - Current: Current Medications Levofloxacin/Dextrose 750 mg/ (Premix) 150 mls @ 100 mls/hr IV ONETIME ONE Stop: 03/28/17 00:41 Last Admin: 03/27/17 23:34 Dose: 100 mls/hr Discontinued Medications Acetaminophen (Tylenol) 975 mg PO NOW ONE Stop: 03/27/17 23:12 Last Admin: 03/27/17 23:30 Dose: 975 mg Acetaminophen (Tylenol) 650 mg PO Q6H PRN PRN Reason: Pain Hydrocodone Bitart/Acetaminophen (Manson 325-5 Mg) 1 tab PO Q4H PRN PRN Reason: Pain (moderate 4-6) Last Admin: 03/29/17 10:56 Dose: 1 tab Albuterol (Proventil Neb Soln) 1.25 mg NEB Q4HRRT PRN PRN Reason: Shortness of Breath Albuterol (Proventil Neb Soln) 2.5 mg NEB Q2H PRN PRN Reason: Shortness Of Breath/wheezing Last Admin: 03/30/17 08:52 Dose: 2.5 mg Amlodipine Besylate (Norvasc) 5 mg PO DAILY [facility] Last Admin: 03/30/17 09:24 Dose: 5 mg Budesonide (Pulmicort) 0.5 mg NEB BIDRT [facility] Budesonide (Pulmicort) 0.5 mg NEB BID [facility] Last Admin: 03/30/17 08:54 Dose: 0.5 mg Docusate Sodium (Colace) 100 mg PO BID [facility] Last Admin: 03/30/17 09:21 Dose: 100 mg Enoxaparin Sodium (Lovenox) 40 mg SUBCUT DAILY [facility] Last Admin: 03/29/17 08:47 Dose: Not Given Hydromorphone HCl (Dilaudid) 0.5 mg IVPUSH ONETIME ONE Stop: 03/28/17 00:06 Last Admin: 03/28/17 09:08 Dose: Not Given Hydromorphone HCl (Dilaudid) Confirm Administered Dose 0.5 mg .ROUTE .STK-MED ONE Stop: 03/28/17 02:42 Last Admin: 03/28/17 09:10 Dose: Not Given Hydromorphone HCl (Dilaudid) 1 mg IVPUSH ONETIME ONE Stop: 03/28/17 05:19 Last Admin: 03/28/17 05:24 Dose: 1 mg Hydromorphone HCl (Dilaudid) 0.5 mg IVPUSH Q4H PRN PRN Reason: severe pain Last Admin: 03/29/17 08:41 Dose: 0.5 mg Dextrose/Sodium Chloride (Dextrose 5%-Normal Saline) 1,000 mls @ 500 mls/hr IV ASDIRECTED [facility] Last Admin: 03/27/17 23:27 Dose: 500 mls/hr Lactated Ringer's (Ringers, Lactated) Confirm Administered Dose 0 mls @ as directed .ROUTE .[facility] ONE Stop: 03/28/17 02:42 Last Admin: 03/28/17 09:10 Dose: Not Given Piperacillin Sod/Tazobactam (Sod 4.5 gm/ Sodium Chloride) 100 mls @ 200 mls/hr IV ONETIME ONE Stop: 03/28/17 04:48 Last Admin: 03/28/17 05:19 Dose: 200 mls/hr Dextrose/Sodium Chloride (Dextrose 5%-Normal Saline) 1,000 mls @ 125 mls/hr IV ONETIME ONE Stop: 03/28/17 12:19 Last Admin: 03/28/17 04:22 Dose: 125 mls/hr Dextrose/Sodium Chloride (Dextrose 5%-Normal Saline) 1,000 mls @ 125 mls/hr IV ASDIRECTED [facility] Azithromycin 500 mg/ Sodium (Chloride) 250 mls @ 250 mls/hr IV Q24H [facility] Last Admin: 03/29/17 10:55 Dose: 250 mls/hr Piperacillin Sod/Tazobactam (Sod 4.5 gm/ Sodium Chloride) 100 mls @ 25 mls/hr IV Q8H [facility] Last Admin: 03/30/17 06:11 Dose: 25 mls/hr Dextrose/Sodium Chloride (Dextrose 5%-Normal Saline) 1,000 mls @ 100 mls/hr IV ASDIRECTED [facility] Last Admin: 03/29/17 08:38 Dose: 100 mls/hr Ketorolac Tromethamine (Toradol) Confirm Administered Dose 30 mg .ROUTE .STK- MED ONE Stop: 03/28/17 00:55 Last Admin: 03/28/17 09:09 Dose: Not Given Ketorolac Tromethamine (Toradol) 60 mg IM Q6H [facility] Stop: 03/29/17 00:01 Last Admin: 03/28/17 12:21 Dose: Not Given Ketorolac Tromethamine (Toradol) 30 mg IVPUSH Q6H [facility] Stop: 03/29/17 06:01 Last Admin: 03/29/17 05:23 Dose: 30 mg Lisinopril (Prinivil) 10 mg PO BID [facility] Last Admin: 03/28/17 11:11 Dose: 10 mg Lisinopril (Prinivil) 40 mg PO DAILY [facility] Last Admin: 03/30/17 09:25 Dose: 40 mg Lisinopril (Prinivil) 30 mg PO NOW ONE Stop: 03/28/17 12:46 Last Admin: 03/28/17 12:50 Dose: 30 mg Lorazepam (Ativan) Confirm Administered Dose 2 mg .ROUTE .STK-MED ONE Stop: 03/28/17 02:43 Last Admin: 03/28/17 09:10 Dose: Not Given Lorazepam (Ativan) Confirm Administered Dose 2 mg .ROUTE .STK-MED ONE Stop: 03/28/17 02:44 Last Admin: 03/28/17 09:10 Dose: Not Given Magnesium Hydroxide (Milk Of Magnesia) 30 ml PO Q12H PRN PRN Reason: Constipation Methylprednisolone Sodium Succinate (Solu-Medrol) 62.5 mg IVPUSH ONETIME ONE Stop: 03/28/17 03:44 Last Admin: 03/28/17 04:18 Dose: 62.5 mg Methylprednisolone Sodium Succinate (Solu-Medrol) 40 mg IVPUSH Q12H [facility] Last Admin: 03/28/17 22:01 Dose: 40 mg Methylprednisolone Sodium Succinate (Solu-Medrol) 40 mg IVPUSH DAILY [facility] Last Admin: 03/30/17 09:28 Dose: Not Given Metoclopramide HCl (Reglan) 10 mg IVPUSH ONETIME ONE Stop: 03/27/17 23:12 Last Admin: 03/27/17 23:31 Dose: 10 mg Metoclopramide HCl (Reglan) 10 mg IVPUSH ONETIME ONE Stop: 03/28/17 00:07 Last Admin: 03/28/17 09:09 Dose: Not Given Metoprolol Succinate (Toprol Xl) 50 mg PO DAILY [facility] Last Admin: 03/30/17 09:29 Dose: 50 mg Ondansetron HCl (Zofran Odt) 4 mg PO Q4H PRN PRN Reason: nausea, able to take PO Ondansetron HCl (Zofran) 4 mg IV Q4H PRN PRN Reason: Nausea/Vomiting Last Admin: 03/28/17 22:01 Dose: 4 mg Oxycodone/Acetaminophen (Percocet 325-5 Mg) 1 tab PO Q4H PRN PRN Reason: Pain Last Admin: 03/30/17 11:19 Dose: 1 tab Pantoprazole Sodium (Protonix) 40 mg PO BID [facility] Last Admin: 03/30/17 09:25 Dose: 40 mg Pneumococcal Polyvalent Vaccine (Pneumovax 23) 0.5 ml IM .ONCE ONE Stop: 03/28/17 04:53 Prednisone (Prednisone) 20 mg PO DAILY [facility] Saccharomyces Boulardii (Florastor) 250 mg PO BID [facility] Last Admin: 03/30/17 09:21 Dose: 250 mg *Q Meaningful Use (DIS) - VTE *Q VTE Criteria *Q: - Stroke *Q Stroke Criteria *Q: - AMI *Q AMI Criteria *Q: <Patricia Armenta - Last Filed: 03/31/17 13:28> Discharge Summary - Hospital Course Free Text/Narrative:: Paulo is a 31yo male admitted through the ER last evening with acute onset SOB , cough and wheezing s/p chemical exposure at work to exhaust fumes. He reports this exposure x 4+ hours. 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 He states he became more and more SOB as the day progressed yesterday, cough worsened. He was dizzy, with headache, sweaty and febrile upon presentation to ER. Denies hemoptysis, n/v/d, abdominal or back pain. 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 PCP is Julito Hatch Laboratory Veterinarian is Dr. Jin in [place] Patient was admitted for above noted clinical pneumonia with chemical pneumonitis; treated with zosyn and zithromax IV, solumedrol, aggressive pulmonary toilet/RT therapies. He required higher than expected doses of narcotic pain medications through his stay, percocet and asking for dilaudid by name every 2-4 hours. On second day of his stay he requested discharge. Based on nature of injury/chemical pneumonitis, reviewed with him that this would be AMA. He threatened to leave AMA but did stay one more night for further abx therapy, steroid therapy, RT and lab monitoring. Repeat CXR was unremarkable. He had no hemoptysis during his stay or other symptoms consistent with possible vasculitis. He continued to have elevated b/p readings, antihypertensive medications were augmented with better control. He is discharged home on zithromax, prednisone taper, usual home medications and b/p medications. He may return to work the day following discharge without restrictions. He should have follow up with his PCP, Julito Hatch PA-C, next week for recheck. - Discharge Data Discharge Date: 03/30/17 (admit date 03/28/17) - Discharge Diagnosis/Problem(s) (1) Acute pneumonitis due to chemical fumes SNOMED Code(s): 711789622 ICD Code: J68.0 - BRONCHITIS & PNEUMONITIS D/T CHEMICALS, GAS, FUMES & VAPORS Status: Acute Priority: High (2) Pneumonia SNOMED Code(s): 274032886 ICD Code: J18.9 - PNEUMONIA, UNSPECIFIED ORGANISM Status: Acute Priority : High Qualifiers: Pneumonia type: due to unspecified organism Laterality: left Lung location: lower lobe of lung Qualified Code(s): J18.1 - Lobar pneumonia, unspecified organism (3) ANCA-positive vasculitis SNOMED Code(s): 713208504, 744771979 ICD Code: I77.6 - ARTERITIS, UNSPECIFIED Status: Chronic Priority: High (4) Immunocompromised due to corticosteroids SNOMED Code(s): 554876365 ICD Code: T38.0X1A - POISONING BY GLUCOCORT/SYNTH ANALOG, ACCIDENTAL, INIT; D84.8 - OTHER SPECIFIED IMMUNODEFICIENCIES Status: Chronic Priority: High (5) Hypertension SNOMED Code(s): 55772325 ICD Code: I10 - ESSENTIAL (PRIMARY) HYPERTENSION Status: Chronic Priority : High Qualifiers: Hypertension type: essential hypertension Qualified Code(s): I10 - Essential (primary) hypertension (6) Hematuria SNOMED Code(s): 11850947 ICD Code: R31.9 - HEMATURIA, UNSPECIFIED Status: Acute Priority: High - Patient Summary/Data Operative Procedure(s) Performed: None Complications: None Consults: Consultations 03/28/17 09:55 Consult to Case Management [CONS] Routine Consult to Shot Bagger [CONS] Routine Labs Pending at D/C: None Planned Operative Procedure(s) after DC: None Hospital Course: As above - Patient Instructions Diet: Heart Healthy Diet, Drink 8-10+ Glasses/Day Activity: As Tolerated Driving: May Drive Today Showering/Bathing: May Shower Notify Provider of: Fever, Increased Pain, Nausea and/or Vomiting - Discharge Summary/Plan Comment DC Time >30 min.: Yes (40 min) - General Info Date of Service: 03/30/17 Admission Dx/Problem (Free Text: Admission Diagnosis/Problem Admission Diagnosis/Problem Pneumonia Patient is seen today. States pain to left chest is improved but still present. VSS. No n/v/d. Voiding without difficulty. Up and ambulatory, independently. Functional Status: Reports: pain controlled (with PO narcotic pain medications) , tolerating diet, ambulating, urinating. Denies: new symptoms - Review of Systems General: Denies: Fever, Weakness HEENT: Reports: no symptoms Pulmonary: Reports: shortness of breath (improved), cough (improved) Cardiovascular: Reports: No Symptoms Gastrointestinal: Reports: No symptoms Genitourinary: Reports: no symptoms Musculoskeletal: Reports: no symptoms Skin: Reports: no symptoms Neurological: Reports: No Symptoms Psychiatric: Reports: no symptoms - Patient Data Vitals - Most Recent: Last Vital Signs Temp 98.8 F 03/30/17 08:20 Pulse 79 03/30/17 09:29 Resp 22 H 03/30/17 08:20 BP 133/88 03/30/17 09:29 Pulse Ox 94 L 03/30/17 08:54 Weight - Most Recent: 225 lb I&O - Last 24 hours: Intake & Output 03/30/17 03/30/17 03/30/17 06:59 14:59 22:59 Intake Total 275 120 Balance 275 120 Lab Results - Last 24 hrs: Laboratory Results - last 24 hr 03/30/17 03/30/17 Range/Units 07:54 07:54 WBC 4.76 (4.23-9.07) K/mm3 RBC 3.61 L (4.63-6.08) M/mm3 Hgb 10.9 L (13.7-17.5) gm/L Hct 34.5 L (40.1-51.0) % MCV 95.6 H (79.0-92.2) fl MCH 30.2 (25.7-32.2) pg MCHC 31.6 L (32.2-35.5) g/dl RDW Std Deviation 49.2 H (35.1-43.9) fL Plt Count 199 (163-337) K/mm3 MPV 10.1 (9.4-12.3) fl Sodium 142 (136-145) mEq/L Potassium 3.8 (3.5-5.1) mEq/L Chloride 108 H (98-107) mEq/L Carbon Dioxide 30 (21-32) mEq/L Anion Gap 7.8 (5-15) BUN 16 (7-18) mg/dL Creatinine 1.1 (0.7-1.3) mg/dL Est Cr Clr Drug Dosing 97.30 mL/min Estimated GFR (MDRD) > 60 (>60) mL/min BUN/Creatinine Ratio 14.5 (14-18) Glucose 98 (74-106) mg/dL Calcium 8.7 (8.5-10.1) mg/dL Magnesium 1.9 (1.8-2.4) mg/dl C-Reactive Protein 0.5 (<1.0) mg/dL Med Orders - Current: Current Medications Levofloxacin/Dextrose 750 mg/ (Premix) 150 mls @ 100 mls/hr IV ONETIME ONE Stop: 03/28/17 00:41 Last Admin: 03/27/17 23:34 Dose: 100 mls/hr Discontinued Medications Acetaminophen (Tylenol) 975 mg PO NOW ONE Stop: 03/27/17 23:12 Last Admin: 03/27/17 23:30 Dose: 975 mg Acetaminophen (Tylenol) 650 mg PO Q6H PRN PRN Reason: Pain Hydrocodone Bitart/Acetaminophen (Manson 325-5 Mg) 1 tab PO Q4H PRN PRN Reason: Pain (moderate 4-6) Last Admin: 03/29/17 10:56 Dose: 1 tab Albuterol (Proventil Neb Soln) 1.25 mg NEB Q4HRRT PRN PRN Reason: Shortness of Breath Albuterol (Proventil Neb Soln) 2.5 mg NEB Q2H PRN PRN Reason: Shortness Of Breath/wheezing Last Admin: 03/30/17 08:52 Dose: 2.5 mg Amlodipine Besylate (Norvasc) 5 mg PO DAILY [facility] Last Admin: 03/30/17 09:24 Dose: 5 mg Budesonide (Pulmicort) 0.5 mg NEB BIDRT [facility] Budesonide (Pulmicort) 0.5 mg NEB BID [facility] Last Admin: 03/30/17 08:54 Dose: 0.5 mg Docusate Sodium (Colace) 100 mg PO BID [facility] Last Admin: 03/30/17 09:21 Dose: 100 mg Enoxaparin Sodium (Lovenox) 40 mg SUBCUT DAILY [facility] Last Admin: 03/29/17 08:47 Dose: Not Given Hydromorphone HCl (Dilaudid) 0.5 mg IVPUSH ONETIME ONE Stop: 03/28/17 00:06 Last Admin: 03/28/17 09:08 Dose: Not Given Hydromorphone HCl (Dilaudid) Confirm Administered Dose 0.5 mg .ROUTE .STK-MED ONE Stop: 03/28/17 02:42 Last Admin: 03/28/17 09:10 Dose: Not Given Hydromorphone HCl (Dilaudid) 1 mg IVPUSH ONETIME ONE Stop: 03/28/17 05:19 Last Admin: 03/28/17 05:24 Dose: 1 mg Hydromorphone HCl (Dilaudid) 0.5 mg IVPUSH Q4H PRN PRN Reason: severe pain Last Admin: 03/29/17 08:41 Dose: 0.5 mg Dextrose/Sodium Chloride (Dextrose 5%-Normal Saline) 1,000 mls @ 500 mls/hr IV ASDIRECTED [facility] Last Admin: 03/27/17 23:27 Dose: 500 mls/hr Lactated Ringer's (Ringers, Lactated) Confirm Administered Dose 0 mls @ as directed .ROUTE .STK-MED ONE Stop: 03/28/17 02:42 Last Admin: 03/28/17 09:10 Dose: Not Given Piperacillin Sod/Tazobactam (Sod 4.5 gm/ Sodium Chloride) 100 mls @ 200 mls/hr IV ONETIME ONE Stop: 03/28/17 04:48 Last Admin: 03/28/17 05:19 Dose: 200 mls/hr Dextrose/Sodium Chloride (Dextrose 5%-Normal Saline) 1,000 mls @ 125 mls/hr IV ONETIME ONE Stop: 03/28/17 12:19 Last Admin: 03/28/17 04:22 Dose: 125 mls/hr Dextrose/Sodium Chloride (Dextrose 5%-Normal Saline) 1,000 mls @ 125 mls/hr IV ASDIRECTED [facility] Azithromycin 500 mg/ Sodium (Chloride) 250 mls @ 250 mls/hr IV Q24H [facility] Last Admin: 03/29/17 10:55 Dose: 250 mls/hr Piperacillin Sod/Tazobactam (Sod 4.5 gm/ Sodium Chloride) 100 mls @ 25 mls/hr IV Q8H [facility] Last Admin: 03/30/17 06:11 Dose: 25 mls/hr Dextrose/Sodium Chloride (Dextrose 5%-Normal Saline) 1,000 mls @ 100 mls/hr IV ASDIRECTED [facility] Last Admin: 03/29/17 08:38 Dose: 100 mls/hr Ketorolac Tromethamine (Toradol) Confirm Administered Dose 30 mg .ROUTE .STK- MED ONE Stop: 03/28/17 00:55 Last Admin: 03/28/17 09:09 Dose: Not Given Ketorolac Tromethamine (Toradol) 60 mg IM Q6H [facility] Stop: 03/29/17 00:01 Last Admin: 03/28/17 12:21 Dose: Not Given Ketorolac Tromethamine (Toradol) 30 mg IVPUSH Q6H [facility] Stop: 03/29/17 06:01 Last Admin: 03/29/17 05:23 Dose: 30 mg Lisinopril (Prinivil) 10 mg PO BID [facility] Last Admin: 03/28/17 11:11 Dose: 10 mg Lisinopril (Prinivil) 40 mg PO DAILY [facility] Last Admin: 03/30/17 09:25 Dose: 40 mg Lisinopril (Prinivil) 30 mg PO NOW ONE Stop: 03/28/17 12:46 Last Admin: 03/28/17 12:50 Dose: 30 mg Lorazepam (Ativan) Confirm Administered Dose 2 mg .ROUTE .STK-MED ONE Stop: 03/28/17 02:43 Last Admin: 03/28/17 09:10 Dose: Not Given Lorazepam (Ativan) Confirm Administered Dose 2 mg .ROUTE .STK-MED ONE Stop: 03/28/17 02:44 Last Admin: 03/28/17 09:10 Dose: Not Given Magnesium Hydroxide (Milk Of Magnesia) 30 ml PO Q12H PRN PRN Reason: Constipation Methylprednisolone Sodium Succinate (Solu-Medrol) 62.5 mg IVPUSH ONETIME ONE Stop: 03/28/17 03:44 Last Admin: 03/28/17 04:18 Dose: 62.5 mg Methylprednisolone Sodium Succinate (Solu-Medrol) 40 mg IVPUSH Q12H [facility] Last Admin: 03/28/17 22:01 Dose: 40 mg Methylprednisolone Sodium Succinate (Solu-Medrol) 40 mg IVPUSH DAILY [facility] Last Admin: 03/30/17 09:28 Dose: Not Given Metoclopramide HCl (Reglan) 10 mg IVPUSH ONETIME ONE Stop: 03/27/17 23:12 Last Admin: 03/27/17 23:31 Dose: 10 mg Metoclopramide HCl (Reglan) 10 mg IVPUSH ONETIME ONE Stop: 03/28/17 00:07 Last Admin: 03/28/17 09:09 Dose: Not Given Metoprolol Succinate (Toprol Xl) 50 mg PO DAILY [facility] Last Admin: 03/30/17 09:29 Dose: 50 mg Ondansetron HCl (Zofran Odt) 4 mg PO Q4H PRN PRN Reason: nausea, able to take PO Ondansetron HCl (Zofran) 4 mg IV Q4H PRN PRN Reason: Nausea/Vomiting Last Admin: 03/28/17 22:01 Dose: 4 mg Oxycodone/Acetaminophen (Percocet 325-5 Mg) 1 tab PO Q4H PRN PRN Reason: Pain Last Admin: 03/30/17 11:19 Dose: 1 tab Pantoprazole Sodium (Protonix) 40 mg PO BID [facility] Last Admin: 03/30/17 09:25 Dose: 40 mg Pneumococcal Polyvalent Vaccine (Pneumovax 23) 0.5 ml IM .ONCE ONE Stop: 03/28/17 04:53 Prednisone (Prednisone) 20 mg PO DAILY [facility] Saccharomyces Boulardii (Florastor) 250 mg PO BID [facility] Last Admin: 03/30/17 09:21 Dose: 250 mg - Exam Quality Assessment: Denies: DVT prophylaxis (refuses lovenox and SCD's; is ambulatory independently) General: Reports: alert, oriented, cooperative, no acute distress HEENT: Reports: Pupils equal, Pupils reactive, EOMI, Mucous membr. moist/pink Neck: Reports: supple Lungs: Reports: Clear to auscultation, Normal respiratory effort Cardiovascular: Reports: Regular Rate, Regular Rhythm Abdomen: Reports: bowel sounds present, soft, no tenderness, no distension (Male) Exam: Deferred Rectal (Males) Exam: Deferred Back Exam: Reports: Normal Inspection Extremities: Reports: no edema, no calf tenderness Skin: Reports: warm, dry, intact Neurological: Reports: no new focal deficit Psy/Mental Status: Reports: alert, normal affect, normal mood *Q Meaningful Use (DIS) - VTE *Q VTE Criteria *Q: - Stroke *Q Stroke Criteria *Q: - AMI *Q AMI Criteria *Q:
== END 2017-03-30 12:50 | disposition home or self-care (01) | DRG 206 ==
LOC: JD.ED 22:31 → JD.MS 03-28 03:40
PROVIDERS: ADMIT Internal Medicine Cardiovascular Disease; ATTEND Internal Medicine Cardiovascular Disease
DX: J68.0 Bronchitis and pneumonitis due to chemicals, gases, fumes and vapors (principal); J18.9 Pneumonia, unspecified organism; I77.6 Arteritis, unspecified; T38.0X5A Adverse effect of glucocorticoids and synthetic analogues, initial encounter; R31.9 Hematuria, unspecified; I10 Essential (primary) hypertension; E78.00 Pure hypercholesterolemia, unspecified; K21.9 Gastro-esophageal reflux disease without esophagitis; G89.4 Chronic pain syndrome; R51 Headache; M54.9 Dorsalgia, unspecified; E66.9 Obesity, unspecified; Z79.52 Long term (current) use of systemic steroids; Z79.899 Other long term (current) drug therapy; Z88.6 Allergy status to analgesic agent; Z88.8 Allergy status to other drugs, medicaments and biological substances
CPT/HCPCS: 36415; 71020; 71020-26; 80048; 80053; 80306; 81003; 83605; 83735; 85025; 85027; 86140; 86738; 87040; 87804; 87899; 94640-76; 94664; 94667; 94668; 94761; 96361; 96365; 96375; 99285; 99285-25; A9270-GY; J0456; J1170; J1885; J1956; J2405; J2543; J2765; J2920; J2930; J7030; J7042; J7050

== ENCOUNTER 2017-04-05 14:09 | Emergency (ER) | payer BC, MEDICAID, OTHER ==
--- NOTE | 2017-04-05 15:14 | EDM.PDOC ---
ED HPI GENERAL MEDICAL PROBLEM - General Chief Complaint: Respiratory Problem Stated Complaint: SOB/FEVER/CHEST AND BACK PAIN Time Seen by Provider: 04/05/17 14:23 Source of Information: Reports: Patient, RN Notes Reviewed - History of Present Illness INITIAL COMMENTS - FREE TEXT/NARRATIVE: 31-year-old male presents to the ED complaining of cough, fever, pleuritic chest discomfort. He does have history of having been admitted for pneumonia about 9 days ago. He had a 3 day hospital admission. Please refer to that record for details. Is discharged home on Zithromax. He'll followup appointment was over at the clinic this early afternoon. He did have a white blood count drawn and also a chest x-ray ordered. He was told by his provider that results will be called to him. He then subsequently came here to the ED for reasons that are quite unclear. 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 Pain Score (Numeric/FACES): 8 - Related Data Allergies Allergy/AdvReac Type Severity Reaction Status Date / Time methocarbamol [From Robaxin] Allergy Itching Verified 04/05/17 14:21 tramadol AdvReac Sweating Verified 04/05/17 14:21 Home Meds: Home Meds Cyclophosphamide 50 mg PO DAILY 04/25/16 [History] Pantoprazole Sodium [Protonix] 40 mg PO BID 04/25/16 [History] predniSONE [Prednisone] 20 mg PO DAILY 04/25/16 [History] amLODIPine [Norvasc] 5 mg PO DAILY #30 tablet 03/15/17 [Rx] Albuterol [IJD: Ventolin HFA] 2 puff INH QID #18 gm 03/30/17 [Rx] Azithromycin [Zithromax] 500 mg PO DAILY #5 tablet 03/30/17 [Rx] Lisinopril [Prinivil] 40 mg PO DAILY #40 tablet 03/30/17 [Rx] Metoprolol Succinate [Toprol XL] 50 mg PO DAILY #30 tab.er 03/30/17 [Rx] Prednisone [IJD: Prednisone] 10 mg PO DAILY #30 tab 03/30/17 [Rx] Levofloxacin [Levaquin] 750 mg PO DAILY #7 tablet 04/05/17 [Rx] Past Medical History HEENT History: Reports: Impaired Vision Other HEENT History: wears eyeglasses Cardiovascular History: Reports: High Cholesterol, Hypertension Respiratory History: Reports: Intubation, Previous, Pneumonia, Recurrent, Pneumothorax Other Respiratory History: ANCA Vasculitis Gastrointestinal History: Reports: GERD Musculoskeletal History: Reports: Back Pain, Chronic Neurological History: Reports: Headaches, Chronic Immunologic History: Reports: Immunosuppression, Other (See Below) Other Immunologic History: vasculitis, "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." - Past Surgical History Respiratory Surgical History: Reports: Other (See Below) GI Surgical History: Reports: Appendectomy Neurological Surgical History: Reports: C-Spine, Lumbar Spine Musculoskeletal Surgical History: Reports: Other (See Below) Social & Family History - Family History Family Medical History: Noncontributory Cardiac: Reports: [place] Neurological: Reports: Other (See Below) Other Neurological Family History: Mother had a crani - Tobacco Use Smoking Status *Q: Never Smoker Used Tobacco, but Quit: Yes Second Hand Smoke Exposure: No - Caffeine Use Caffeine Use: Reports: Soda Other Caffeine Use: Daily soda drinker - Alcohol Use Days Per Week of Alcohol Use: 0 Number of Drinks Per Day: 1 Total Drinks Per Week: 0 - Recreational Drug Use Recreational Drug Use: No - Living Situation & Occupation Living situation: Reports: Single, Other Occupation: Employed ED ROS GENERAL - Review of Systems Review Of Systems: See Below Constitutional: Reports: Fever (Low-grade) HEENT: Reports: Sinus Problem (He does have some nasal and sinus congestion, some postnasal drainage). Denies: Throat Pain Respiratory: Reports: Cough, Sputum (Yellowish coloration). Denies: Shortness of Breath, Wheezing, Hemoptysis Cardiovascular: Reports: Chest Pain (With deep breathing) GI/Abdominal: Denies: Abdominal Pain, Nausea, Vomiting Musculoskeletal: Reports: No Symptoms Skin: Reports: No Symptoms Neurological: Reports: No Symptoms ED EXAM, GENERAL - Physical Exam Exam: See Below General Appearance: Alert, No Apparent Distress Throat/Mouth: Normal Inspection, Normal Oropharynx Head: No: Facial Swelling Neck: Supple, Full Range of Motion. No: Lymphadenopathy (L), Lymphadenopathy (R ) Respiratory/Chest: No Respiratory Distress, Lungs Clear, Normal Breath Sounds. No: Rhonchi, Wheezing Cardiovascular: Regular Rate, Rhythm Extremities: Normal Inspection, Normal Range of Motion Neurological: Alert, Oriented Skin Exam: Warm, Dry, Normal Color Course - Vital Signs Last Recorded V/S: Last Vital Signs Temp 98.3 F 04/05/17 14:15 Pulse 86 04/05/17 14:15 Resp 18 04/05/17 14:15 BP 155/100 H 04/05/17 14:15 Pulse Ox 100 04/05/17 14:15 - Re-Assessments/Exams Free Text/Narrative Re-Assessment/Exam: 04/05/17 15:22 white blood count drawn today is normal. He is afebrile here in the ED. He is not showing any sign of respiratory distress or showing visible discomfort while here in the ED. Chest x-ray has been read by Dr. Buckley, Radiologist who is calling a small right lower lobe infiltrate. It does not look a lot different from his 2 prior chest x-rays where I don't see that this infiltrate was called. Because of that I am going to add Levaquin to his current meds and will have him take Levaquin 750 mg daily for one week. He is advised to continue with the inhaler. He will continue the steroids diffusely prescribed. As I leave the room he asked "what about pain medication" I recommended that he alternate Aleve and Tylenol informing him that combination of medication is "quite powerful". I do not see any need to prescribe further narcotic medication at this time. Julito Hatch from the clinic has advised me that he did have 10 hydrocodone filled just 2 days ago. And had 20 tablets prescribed leaked last week. Departure - Departure Time of Disposition: 15:11 Disposition: Home, Self-Care 01 Condition: fair Clinical Impression: Pneumonia Qualifiers: Pneumonia type: due to unspecified organism Laterality: right Lung location: lower lobe of lung Qualified Code(s): J18.1 - Lobar pneumonia, unspecified organism - Discharge Information Prescriptions: Levofloxacin [Levaquin] 750 mg PO DAILY #7 tablet Referrals: Julito Hatch PA-C [Primary Care Provider] - Forms: ED Department Discharge Additional Instructions: Rest, Zithromax prescribed for you last week is still working for you, are going to add Levaquin antibiotic today, 750 mg daily for one week, prescription has been sent electronically to [facility] pharmacy, continue to use the inhaler. Drink plenty of water to maintain hydration, alternate Aleve and Tylenol as discussed as needed for discomfort. Followup clinic in about 5-7 days for recheck, call for appointment
[2017-04-05 15:30] VITALS: BP 152/86
== END 2017-04-05 15:25 | disposition home or self-care (01) ==
LOC: JD.ED 14:09
DX: J18.1 Lobar pneumonia, unspecified organism (principal); I10 Essential (primary) hypertension; E78.00 Pure hypercholesterolemia, unspecified; K21.9 Gastro-esophageal reflux disease without esophagitis; Z90.49 Acquired absence of other specified parts of digestive tract; Z98.890 Other specified postprocedural states; Z79.2 Long term (current) use of antibiotics; Z79.899 Other long term (current) drug therapy; Z88.5 Allergy status to narcotic agent; Z88.8 Allergy status to other drugs, medicaments and biological substances
CPT/HCPCS: 99283; 99285

== ENCOUNTER 2017-04-29 14:14 | Emergency (ER) | payer BC, MEDICAID, OTHER ==
[2017-04-29 14:28] VITALS: BP 158/101
[2017-04-29] MEDS ORDERED: Sodium Chloride 0.9% 10 ML Syringe FLUSH PRN (14:33)
[2017-04-29] MEDS ORDERED: Ondansetron 4 MG/2 ML SDV IVPUSH ONE (14:33)
[2017-04-29] MEDS ORDERED: Ketorolac 30 MG/ML SDV IVPUSH ONE (14:34)
[2017-04-29] MEDS ORDERED: HYDROmorphone 1 MG/ML Syringe IVPUSH ONE ×2 (14:34→16:25)
[2017-04-29] MEDS ORDERED: Sodium Chloride 0.9% 1,000 ML IV SCH (14:45)
--- NOTE | 2017-04-29 15:45 | EDM.PDOC ---
ED HPI GENERAL MEDICAL PROBLEM - General Chief Complaint: Genitourinary Problem Stated Complaint: SWEATING/FREQUENT URINATION Time Seen by Provider: 04/29/17 14:33 Source of Information: Reports: Patient History Limitations: Reports: No Limitations - History of Present Illness INITIAL COMMENTS - FREE TEXT/NARRATIVE: The patient presents with right flank pain. [place] with [place]. He passed a stone then and he was told there were a few more. He had more flank pain today and nausea and he may have passed another stone. He still has pain though. He has no fever, chills, chest pain, or shortness of breath. He has dysuria and he had hematuria. Onset: Gradual Duration: Week(s): Location: Reports: Other (Right flank) Quality: Reports: Sharp Severity: Severe Improves with: Reports: None Worsens with: Reports: None Associated Symptoms: Reports: Nausea/Vomiting. Denies: Shortness of Breath Right Flank Pain Score (Numeric/FACES): 7 - Related Data Allergies Allergy/AdvReac Type Severity Reaction Status Date / Time methocarbamol [From Robaxin] Allergy Itching Verified 04/05/17 14:21 tramadol AdvReac Sweating Verified 04/05/17 14:21 Home Meds: Home Meds Cyclophosphamide 50 mg PO DAILY 04/25/16 [History] Pantoprazole Sodium [Protonix] 40 mg PO BID 04/25/16 [History] predniSONE [Prednisone] 20 mg PO DAILY 04/25/16 [History] Albuterol [IJD: Ventolin HFA] 2 puff INH QID #18 gm 03/30/17 [Rx] Lisinopril [Prinivil] 40 mg PO DAILY #40 tablet 03/30/17 [Rx] Ondansetron [Zofran ODT] 4 mg PO Q6H PRN #20 tab.dis 04/29/17 [Rx] oxyCODONE HCl/Acetaminophen [Percocet 5-325 mg Tablet] 1 - 2 each PO Q6HR PRN # 20 tablet 04/29/17 [Rx] Past Medical History HEENT History: Reports: Impaired Vision Other HEENT History: wears eyeglasses Cardiovascular History: Reports: High Cholesterol, Hypertension Respiratory History: Reports: Intubation, Previous, Pneumonia, Recurrent, Pneumothorax Other Respiratory History: ANCA Vasculitis Gastrointestinal History: Reports: GERD Genitourinary History: Reports: Renal Calculus Musculoskeletal History: Reports: Back Pain, Chronic Neurological History: Reports: Headaches, Chronic Immunologic History: Reports: Immunosuppression, Other (See Below) Other Immunologic History: vasculitis, "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." - Past Surgical History Respiratory Surgical History: Reports: Other (See Below) GI Surgical History: Reports: Appendectomy Neurological Surgical History: Reports: C-Spine, Lumbar Spine Musculoskeletal Surgical History: Reports: Other (See Below) Social & Family History - Family History Family Medical History: Noncontributory Cardiac: Reports: [place] Neurological: Reports: Other (See Below) Other Neurological Family History: Mother had a crani - Tobacco Use Smoking Status *Q: Never Smoker Used Tobacco, but Quit: Yes Second Hand Smoke Exposure: No - Caffeine Use Caffeine Use: Reports: Soda Other Caffeine Use: Daily soda drinker - Alcohol Use Days Per Week of Alcohol Use: 0 Number of Drinks Per Day: 1 Total Drinks Per Week: 0 - Recreational Drug Use Recreational Drug Use: No - Living Situation & Occupation Living situation: Reports: Single, Other Occupation: Employed ED ROS GENERAL - Review of Systems Review Of Systems: See Below Constitutional: Reports: No Symptoms HEENT: Reports: No Symptoms Respiratory: Reports: No Symptoms Cardiovascular: Reports: No Symptoms Endocrine: Reports: No Symptoms GI/Abdominal: Reports: Nausea. Denies: Vomiting : Reports: No Symptoms, Flank Pain (Right) ED EXAM, GI/ABD - Physical Exam Exam: See Below Exam Limited By: No Limitations General Appearance: Alert, No Apparent Distress Ears: Normal External Exam Nose: Normal Inspection Head: Atraumatic, Normocephalic Neck: Normal Inspection Respiratory/Chest: No Respiratory Distress, Lungs Clear, Normal Breath Sounds Cardiovascular: Regular Rate, Rhythm, No Edema, No Murmur GI/Abdominal: Soft, Non-Tender, No Organomegaly, No Mass Back Exam: CVA Tenderness (R) Extremities: Normal Inspection Neurological: Alert, Oriented Course - Vital Signs Last Recorded V/S: Last Vital Signs Temp 97.3 F 04/29/17 14:27 Pulse 98 04/29/17 14:27 Resp 20 04/29/17 14:27 BP 158/101 H 04/29/17 14:27 Pulse Ox 97 04/29/17 14:27 - Orders/Labs/Meds Orders: Active Orders 24 hr Category Date Time Status Peripheral IV Care [RC] . DIRECTED Care 04/29/17 14:33 Active Sodium Chloride 0.9% [Normal Saline] 1,000 ml Med 04/29/17 14:45 Active IV ASDIRECTED Sodium Chloride 0.9% [Saline Flush] Med 04/29/17 14:33 Active 10 ml FLUSH ASDIRECTED PRN ED Antiemetic Medication Reflex [OM.PC] Stat Oth 04/29/17 14:33 Ordered Peripheral IV Insertion Adult [OM.PC] Stat Oth 04/29/17 14:33 Ordered Medication Orders Sodium Chloride (Normal Saline) 1,000 mls @ 125 mls/hr IV ASDIRECTED TRISTEN Last Admin: 04/29/17 15:15 Dose: 125 mls/hr Sodium Chloride (Saline Flush) 10 ml FLUSH ASDIRECTED PRN PRN Reason: Keep Vein Open Last Admin: 04/29/17 15:22 Dose: 10 ml Labs: Laboratory Tests 04/29/17 04/29/17 04/29/17 Range/Units 15:15 15:15 15:15 WBC 10.07 H (4.23-9.07) K/mm3 RBC 4.70 (4.63-6.08) M/mm3 Hgb 14.1 (13.7-17.5) gm/L Hct 42.3 (40.1-51.0) % MCV 90.0 (79.0-92.2) fl MCH 30.0 (25.7-32.2) pg MCHC 33.3 (32.2-35.5) g/dl RDW Std Deviation 42.7 (35.1-43.9) fL Plt Count 270 (163-337) K/mm3 MPV 10.9 (9.4-12.3) fl Neut % (Auto) 94.0 H (34.0-67.9) % Lymph % (Auto) 3.9 L (21.8-53.1) % [place] % (Auto) 1.8 L (5.3-12.2) % Eos % (Auto) 0.1 L (0.8-7.0) Baso % (Auto) 0.1 (0.1-1.2) % Neut # (Auto) 9.47 H (1.78-5.38) K/mm3 Lymph # (Auto) 0.39 L (1.32-3.57) K/mm3 [place] # (Auto) 0.18 L (0.30-0.82) K/mm3 Eos # (Auto) 0.01 L (0.04-0.54) K/mm3 Baso # (Auto) 0.01 (0.01-0.08) K/mm3 Manual Slide Review Normal smear Sodium 140 (136-145) mEq/L Potassium 4.1 (3.5-5.1) mEq/L Chloride 108 H (98-107) mEq/L Carbon Dioxide 24 (21-32) mEq/L Anion Gap 12.1 (5-15) BUN 12 (7-18) mg/dL Creatinine 1.2 (0.7-1.3) mg/dL Est Cr Clr Drug Dosing 89.19 mL/min Estimated GFR (MDRD) > 60 (>60) mL/min BUN/Creatinine Ratio 10.0 L (14-18) Glucose 110 H (74-106) mg/dL Calcium 9.8 (8.5-10.1) mg/dL Total Bilirubin 0.6 (0.2-1.0) mg/dL AST 32 (15-37) U/L ALT 42 (16-63) U/L Alkaline Phosphatase 127 H (46-116) U/L Total Protein 8.1 (6.4-8.2) g/dl Albumin 4.1 (3.4-5.0) g/dl Globulin 4.0 gm/dL Albumin/Globulin Ratio 1.0 (1-2) Lipase 123 (73-393) U/L Urine Color Yellow (Yellow) Urine Appearance Clear (Clear) Urine pH 6.0 (5.0-8.0) Ur Specific [place] > or = 1.030 (1.005-1.030) Urine Protein 2+ H (Negative) Urine Glucose (UA) Negative (Negative) Urine Ketones Negative (Negative) Urine Occult Blood 2+ H (Negative) Urine Nitrite Negative (Negative) Urine Bilirubin Negative (Negative) Urine Urobilinogen 0.2 (0.2-1.0) Ur Leukocyte Esterase Negative (Negative) Urine RBC 40-50 H (0-5) /hpf Urine WBC 0-5 (0-5) /hpf Ur Epithelial Cells Not Reportable Ur Squamous Epith Cells 0-5 (0-5) /hpf Urine Bacteria Occasional (FEW) /hpf Urine Mucus Few (FEW) /hpf Meds: Medications Generic Name Dose Route Start Last Admin Trade Name Freq PRN Reason Stop Dose Admin Sodium Chloride 1,000 mls @ 125 mls/hr 04/29/17 14:45 04/29/17 15:15 Normal Saline IV 125 mls/hr ASDIRECTED TRISTEN Administration Sodium Chloride 10 ml 04/29/17 14:33 04/29/17 15:22 Saline Flush FLUSH 10 ml ASDIRECTED PRN Administration Keep Vein Open Discontinued Medications Generic Name Dose Route Start Last Admin Trade Name Freq PRN Reason Stop Dose Admin Hydromorphone HCl 1 mg 04/29/17 14:34 04/29/17 15:20 Dilaudid IVPUSH 04/29/17 14:35 1 mg ONETIME ONE Administration Ketorolac Tromethamine 30 mg 04/29/17 14:34 04/29/17 15:19 Toradol IVPUSH 04/29/17 14:35 30 mg ONETIME ONE Administration Ondansetron HCl 4 mg 04/29/17 14:33 04/29/17 15:17 Zofran IVPUSH 04/29/17 14:34 4 mg ONETIME ONE Administration - Re-Assessments/Exams Free Text/Narrative Re-Assessment/Exam: 04/29/17 15:44 I ordered an IV NS at 125mL/hr, zofran 4mg IV, dilaudid 1mg IV, and toradol 30mg IV. I will get labs and a UA. 04/29/17 16:21 His WBC was slightly elevated at 10.07. His CMP looks good. His UA shows no UTI but he does have blood. His pain is coming back so I ordered more dilaudid 1mg IV. He was given flomax and zofran. I will give him some percocet for pain and the ODT zofran. Departure - Departure Time of Disposition: 16:25 Disposition: Home, Self-Care 01 Condition: good Clinical Impression: Kidney stone, Ureteral colic - Discharge Information Prescriptions: oxyCODONE HCl/Acetaminophen [Percocet 5-325 mg Tablet] 1 - 2 each PO Q6HR PRN # 20 tablet PRN Reason: Pain Ondansetron [Zofran ODT] 4 mg PO Q6H PRN #20 tab.dis PRN Reason: Nausea/Vomiting Referrals: Julito Hatch PA-C [Primary Care Provider] - Jonas Nicole MD [Physician] - 1 Week Forms: ED Department Discharge Additional Instructions: Take the medication as prescribed. Drink plenty of water. Try to drink about 64 ounces per day. Please return if you are worse. Follow up with Dr Nicole. - My Orders Last 24 Hours: My Active Orders 04/29/17 14:33 Peripheral IV Care [RC] . DIRECTED Sodium Chloride 0.9% [Saline Flush] 10 ml FLUSH ASDIRECTED PRN ED Antiemetic Medication Reflex [OM.PC] Stat Peripheral IV Insertion Adult [OM.PC] Stat 04/29/17 14:45 Sodium Chloride 0.9% [Normal Saline] 1,000 ml IV ASDIRECTED - Assessment/Plan Last 24 Hours: My Active Orders 04/29/17 14:33 Peripheral IV Care [RC] . DIRECTED Sodium Chloride 0.9% [Saline Flush] 10 ml FLUSH ASDIRECTED PRN ED Antiemetic Medication Reflex [OM.PC] Stat Peripheral IV Insertion Adult [OM.PC] Stat 04/29/17 14:45 Sodium Chloride 0.9% [Normal Saline] 1,000 ml IV ASDIRECTED
== END 2017-04-29 17:00 | disposition home or self-care (01) ==
LOC: JD.ED 14:14
DX: N20.2 Calculus of kidney with calculus of ureter (principal); I10 Essential (primary) hypertension; K21.9 Gastro-esophageal reflux disease without esophagitis; E78.00 Pure hypercholesterolemia, unspecified; Z90.49 Acquired absence of other specified parts of digestive tract; Z98.890 Other specified postprocedural states; Z79.899 Other long term (current) drug therapy; Z87.891 Personal history of nicotine dependence; Z88.5 Allergy status to narcotic agent; Z88.8 Allergy status to other drugs, medicaments and biological substances
CPT/HCPCS: 36415; 80053; 81001; 83690; 85025; 96361; 96374; 96375; 96376; 99284; J1170; J1885; J2405; J7040; J7050

== ENCOUNTER 2017-05-06 13:50 | Emergency (ER) | payer MEDICAID, OTHER ==
[2017-05-06] MEDS ORDERED: Ondansetron 4 MG/2 ML SDV IVPUSH ONE (14:40)
--- NOTE | 2017-05-06 14:42 | EDM.PDOC ---
ED HPI GENERAL MEDICAL PROBLEM - General Chief Complaint: Abdominal Pain Stated Complaint: BLOOD IN URINE AND BLACK STOOLS Time Seen by Provider: 05/06/17 14:00 Source of Information: Reports: Patient, Old Records, RN Notes Reviewed, Other ( [place] PMPi) History Limitations: Reports: No Limitations - History of Present Illness INITIAL COMMENTS - FREE TEXT/NARRATIVE: The patient states that he was diagnosed with a kidney stone in late March 2017 at an ED in [place]. He does not recall the size or location of the stone. He was then seen in this ED 04/29/2017, complaining of right flank pain. He reported both dysuria and hematuria. A CBC, CMP, and lipase were unremarkable. A urinalysis showed 2+ occult blood and 40-50 RBCs. No UTI. The patient was given IV fluid, Dilaudid, Toradol, Zofran, then discharged home with prescription for Percocet and Zofran. He was to follow-up with the urologist Dr. Nicole. He now returns complaining of continued right flank pain, radiating to his right lower quadrant. It is sharp and burning in character. He has not identified any modifiers. He states that he has had nausea and vomiting, and reports dysuria. He also reports black tarry stools since yesterday. He denies use of NSAIDs, but does take prednisone. His PCP is Julito Hatch. Mid lower abdomen Pain Score (Numeric/FACES): 6 - Related Data Allergies Allergy/AdvReac Type Severity Reaction Status Date / Time methocarbamol [From Robaxin] Allergy Itching Verified 05/06/17 14:04 tramadol AdvReac Sweating Verified 05/06/17 14:04 Home Meds: Home Meds Cyclophosphamide 50 mg PO DAILY 04/25/16 [History] Pantoprazole Sodium [Protonix] 40 mg PO BID 04/25/16 [History] predniSONE [Prednisone] 20 mg PO DAILY 04/25/16 [History] Albuterol [IJD: Ventolin HFA] 2 puff INH QID #18 gm 03/30/17 [Rx] Lisinopril [Prinivil] 40 mg PO DAILY #40 tablet 03/30/17 [Rx] Ondansetron [Zofran ODT] 4 mg PO Q6H PRN #20 tab.dis 04/29/17 [Rx] oxyCODONE HCl/Acetaminophen [Percocet 5-325 mg Tablet] 1 - 2 each PO Q6HR PRN # 20 tablet 04/29/17 [Rx] Tamsulosin [Flomax] 0.4 mg PO PCBREAKFAST 05/06/17 [History] Past Medical History HEENT History: Reports: Impaired Vision Other HEENT History: wears eyeglasses Cardiovascular History: Reports: Hypertension Respiratory History: Reports: Intubation, Previous, Pneumothorax Gastrointestinal History: Reports: GERD Genitourinary History: Reports: Renal Calculus, Renal Disease (previously) Musculoskeletal History: Reports: Back Pain, Chronic Neurological History: Reports: Headaches, Chronic Endocrine/Metabolic History: Reports: Obesity/BMI 30+ 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) - Past Surgical History Respiratory Surgical History: Reports: Other (See Below) (Right VATS) GI Surgical History: Reports: Appendectomy Neurological Surgical History: Reports: C-Spine (C5-C7 ACDF), Lumbar Spine (L5- S1 discectomy) Musculoskeletal Surgical History: Reports: Other (See Below) Social & Family History - Family History Family Medical History: Noncontributory Cardiac: Reports: [place] Neurological: Reports: Other (See Below) Other Neurological Family History: Mother had a crani - Tobacco Use Smoking Status *Q: Never Smoker Second Hand Smoke Exposure: No - Caffeine Use Caffeine Use: Reports: None Other Caffeine Use: Daily soda drinker - Alcohol Use Alcohol Use History: Yes Days Per Week of Alcohol Use: 0 Number of Drinks Per Day: 1 Total Drinks Per Week: 0 Alcohol Use Frequency: Socially - Recreational Drug Use Recreational Drug Use: No - Living Situation & Occupation Living situation: Reports: Single, Other (Work camp) 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) ED ROS GENERAL - Review of Systems Review Of Systems: See Below Constitutional: Reports: No Symptoms HEENT: Reports: No Symptoms Respiratory: Reports: No Symptoms Cardiovascular: Reports: No Symptoms Endocrine: Reports: No Symptoms GI/Abdominal: Reports: Abdominal Pain (RLQ), Nausea, Vomiting : Reports: Dysuria, Flank Pain (right) Musculoskeletal: Reports: No Symptoms Skin: Reports: No Symptoms Neurological: Reports: No Symptoms Psychiatric: Reports: No Symptoms Hematologic/Lymphatic: Reports: No Symptoms Immunologic: Reports: No Symptoms ED EXAM, GENERAL - Physical Exam Exam: See Below Exam Limited By: No Limitations General Appearance: Alert, WD/WN, No Apparent Distress Eye Exam: Bilateral Eye: Normal Inspection Ears: Normal External Exam, Hearing Grossly Normal Nose: Normal Inspection, No Blood Throat/Mouth: Normal Inspection, Normal Lips, Normal Voice, No Airway Compromise Head: Atraumatic, Normocephalic Neck: Normal Inspection, Full Range of Motion Respiratory/Chest: No Respiratory Distress, Lungs Clear, Normal Breath Sounds, No Accessory Muscle Use Cardiovascular: Normal Peripheral Pulses, Regular Rate, Rhythm, No Gallop, No JVD, No Murmur, No Rub Peripheral Pulses: 4+: Radial (L), Radial (R) GI/Abdominal: Normal Bowel Sounds, Soft, No Organomegaly, No Distention, No Abnormal Bruit, No Mass, Pelvis Stable, Tender (Generalized, nonfocal) (Male) Exam: Deferred Rectal (Males) Exam: Normal Exam, Normal Rectal Tone, Prostate Normal, Heme - Stool Back Exam: Normal Inspection, Full Range of Motion, CVA Tenderness (R) (minimal) . No: CVA Tenderness (L) Extremities: Normal Inspection, Normal Range of Motion, No Pedal Edema, Normal Capillary Refill Neurological: Alert, Oriented, Normal Cognition, No Motor/Sensory Deficits Psychiatric: Normal Affect Skin Exam: Warm, Dry, Intact, Normal Color, No Rash Lymphatic: No Adenopathy Course - Vital Signs Last Recorded V/S: Last Vital Signs Temp 36.3 C 05/06/17 13:59 Pulse 97 05/06/17 17:22 Resp 20 05/06/17 17:22 BP 149/102 H 05/06/17 17:22 Pulse Ox 97 05/06/17 17:22 - Orders/Labs/Meds Orders: Active Orders 24 hr Category Date Time Status Abdomen Pelvis w Cont [CT] Stat Exams 05/06/17 14:40 Taken Labs: Laboratory Tests 05/06/17 05/06/17 05/06/17 Range/Units 15:12 15:12 16:10 WBC 8.08 (4.23-9.07) K/mm3 RBC 4.31 L (4.63-6.08) M/mm3 Hgb 13.0 L (13.7-17.5) gm/L Hct 39.8 L (40.1-51.0) % MCV 92.3 H (79.0-92.2) fl MCH 30.2 (25.7-32.2) pg MCHC 32.7 (32.2-35.5) g/dl RDW Std Deviation 44.0 H (35.1-43.9) fL Plt Count 258 (163-337) K/mm3 MPV 10.9 (9.4-12.3) fl Neutrophils % (Manual) 63 H (40-60) % Band Neutrophils % 3 (0-10) % Lymphocytes % (Manual) 21 (20-40) % Atypical Lymphs % 1 % Monocytes % (Manual) 11 H (2-10) % Eosinophils % (Manual) 1 (0.8-7.0) % Basophils % (Manual) 0 L (0.2-1.2) Platelet Estimate Adequate Plt Morphology Comment Normal RBC Morph Comment Normal Sodium 143 (136-145) mEq/L Potassium 4.1 (3.5-5.1) mEq/L Chloride 108 H (98-107) mEq/L Carbon Dioxide 25 (21-32) mEq/L Anion Gap 14.1 (5-15) BUN 13 (7-18) mg/dL Creatinine 1.2 (0.7-1.3) mg/dL Est Cr Clr Drug Dosing TNP Estimated GFR (MDRD) > 60 (>60) mL/min BUN/Creatinine Ratio 10.8 L (14-18) Glucose 100 (74-106) mg/dL Calcium 9.3 (8.5-10.1) mg/dL Total Bilirubin 0.4 (0.2-1.0) mg/dL AST 31 (15-37) U/L ALT 46 (16-63) U/L Alkaline Phosphatase 108 (46-116) U/L Total Protein 7.6 (6.4-8.2) g/dl Albumin 3.9 (3.4-5.0) g/dl Globulin 3.7 gm/dL Albumin/Globulin Ratio 1.1 (1-2) Lipase 136 (73-393) U/L Urine Color Light yellow (Yellow) Urine Appearance Clear (Clear) Urine pH 7.5 (5.0-8.0) Ur Specific [place] 1.025 (1.005-1.030) Urine Protein 2+ H (Negative) Urine Glucose (UA) Negative (Negative) Urine Ketones Negative (Negative) Urine Occult Blood 2+ H (Negative) Urine Nitrite Negative (Negative) Urine Bilirubin Negative (Negative) Urine Urobilinogen 0.2 (0.2-1.0) Ur Leukocyte Esterase Negative (Negative) Urine RBC 5-10 H (0-5) /hpf Urine WBC Not seen (0-5) /hpf Urine WBC Clumps Not seen (NOT SEEN) /hpf Ur Epithelial Cells 0-5 (0-5) /hpf Urine Bacteria Not seen (FEW) /hpf Urine Mucus Not seen (FEW) /hpf Urine Yeast Not seen (NOT SEEN) Meds: Medications Discontinued Medications Generic Name Dose Route Start Last Admin Trade Name Freq PRN Reason Stop Dose Admin Diatrizoate Meglum/Diatrizoate Sod 90 ml 05/06/17 16:09 05/06/17 16:22 Gastrografin 37% PO 05/06/17 16:10 90 ml ONETIME ONE Administration Sodium Chloride 1,000 mls @ 150 mls/hr 05/06/17 14:45 05/06/17 15:23 Normal Saline IV 150 mls/hr ASDIRECTED TRISTEN Administration Iopamidol 125 ml 05/06/17 16:09 05/06/17 16:24 Isovue-300 (61%) IVPUSH 05/06/17 16:10 125 ml ONETIME ONE Administration Ondansetron HCl 4 mg 05/06/17 14:40 05/06/17 15:13 Zofran IVPUSH 05/06/17 14:41 4 mg ONETIME ONE Administration Sodium Chloride 10 ml 05/06/17 16:09 05/06/17 16:24 Saline Flush FLUSH 10 ml ONETIME PRN Administration IV FLUSH - Radiology Interpretation Free Text/Narrative:: CT of the abdomen and pelvis with IV contrast is read by virtual radiology as "No acute findings." - Re-Assessments/Exams Free Text/Narrative Re-Assessment/Exam: 05/06/17 17:22 Test results discussed with the patient. Today's workup is entirely unremarkable , and does not swing the cause of the patient's pain. The microscopic hematuria could be due to his ANCA vasculitis, but that is not a painful process. The patient has an appointment to follow-up with Dr. Nicole this coming 05/09/2017, however, since he does not have a stone either in the ureter or kidney, I don't know that he needs to keep the appointment. Prior to the test results being available, and in my absence, the patient asked the nurse to ask me to come and talk to him about pain management. Prior medical records, I see that the patient has been to the ED on numerous occasions, often asking for, and receiving pain medications. The [place] PMPi finds that the patient has received 27 prescriptions, all for [place] or Percocet, by 15 different prescribers since 12/18/2014, yet by his history, he does not have any chronic painful medical problems. When I discussed the negative test results with the patient, he became sarcastic , suggesting that his ED visit was a waste of his time. I STRONGLY suspect the patient is drug-seeking. Departure - Departure Time of Disposition: 17:23 Disposition: Home, Self-Care 01 Condition: Good Clinical Impression: Abdominal pain of unknown etiology, Right flank pain, Microscopic hematuria, Drug-seeking behavior - Discharge Information Instructions: Abdominal Pain, Adult, Flank Pain Referrals: Julito Hatch PA-C [Primary Care Provider] - Forms: ED Department Discharge Additional Instructions: You were seen in the emergency room for right flank pain radiating to your lower right abdomen. Workup in the ER included blood work, a urinalysis, and a CT scan of your abdomen and pelvis. Your urine contains a microscopic blood, possibly due to your ANCA vasculitis, however, that is not a painful process. The remainder of your workup was entirely unremarkable, and does not explain the cause of your pain. You do not have a kidney stone, and it does not appear that you recently passed a kidney stone. Because you do not have a kidney stone, you can consider canceling your appointment with the Urologist Dr. Nicole. Follow-up with your PCP, Julito Hatch, as needed. If any other problems, please do not hesitate to return to the ER. - My Orders Last 24 Hours: My Active Orders 05/06/17 14:40 Abdomen Pelvis w Cont [CT] Stat - Assessment/Plan Last 24 Hours: My Active Orders 05/06/17 14:40 Abdomen Pelvis w Cont [CT] Stat
[2017-05-06] MEDS ORDERED: Sodium Chloride 0.9% 1,000 ML IV SCH (14:45)
[2017-05-06] MEDS ORDERED: Diatrizoate Meglumine/Diatrizoate Sodium 37% 120 ML Bottle PO ONE (16:09)
[2017-05-06] MEDS ORDERED: Iopamidol 612 MG/ML 150 ML Bottle IVPUSH ONE (16:09)
[2017-05-06] MEDS ORDERED: Sodium Chloride 0.9% 10 ML Syringe FLUSH PRN (16:09)
[2017-05-06 17:24] VITALS: BP 149/102
--- NOTE | 2017-05-08 14:38 | CT ---
CT abdomen and pelvis Technique: Multiple axial sections were obtained from above the dome of the diaphragm inferiorly through the pubic symphysis. Intravenous and oral contrast has been given. Delayed images were obtained through the bladder. Comparison: Previous abdominal CT of 08/26/16. Findings: Small portion of the visualized lung bases show mild bronchiectasis within the right lung base as well as mild scarring within the right lung base. Old fracture deformity is seen within the right seventh rib. Liver shows no focal parenchymal abnormality. Spleen appears within normal limits. Adrenal glands show no nodule. Gallbladder shows no calcified gallstones. Kidneys show symmetric contrast enhancement without hydronephrosis or mass. Pancreas is within normal limits. Aorta shows no aneurysmal dilatation. No retroperitoneal adenopathy or mesenteric abnormalities are seen. Surgical material is seen next to the tip of the cecum compatible with previous appendectomy. No pelvic mass or adenopathy is seen. Mild increased stool is noted within the rectosigmoid region. Bowel is otherwise unremarkable. Delayed images show contrast within the distal ureters which show no dilatation. Contrast also noted within the bladder. Bone window settings show disc space narrowing and vacuum phenomena within the L5-S1 disc. Impression: 1. Mild increased stool seen within the rectosigmoid region. Other incidental findings as noted above. 2. Nothing acute is identified on CT study of the abdomen and pelvis. Diagnostic code #2 I agree with preliminary report issued by [employer] ([facility] preliminary report dictated on 05/06/17, 5:56 PM Central Time)
== END 2017-05-06 17:55 | disposition home or self-care (01) ==
LOC: JD.ED 13:50
DX: R10.84 Generalized abdominal pain (principal); R31.29 Other microscopic hematuria; Z76.5 Malingerer [conscious simulation]; I10 Essential (primary) hypertension; K21.9 Gastro-esophageal reflux disease without esophagitis; E66.9 Obesity, unspecified; Z90.49 Acquired absence of other specified parts of digestive tract; Z98.890 Other specified postprocedural states; Z87.442 Personal history of urinary calculi; Z79.899 Other long term (current) drug therapy; Z88.5 Allergy status to narcotic agent; Z88.8 Allergy status to other drugs, medicaments and biological substances
CPT/HCPCS: 36415; 74177; 80053; 81001; 83690; 85025; 96361; 96374; 99284; J2405; J7040; J7050; Q9963; Q9967

== ENCOUNTER 2017-05-07 11:58 | Emergency (ER) | payer BC, MEDICAID, OTHER ==
[2017-05-07 12:08] VITALS: BP 156/103
[2017-05-07] MEDS ORDERED: Ketorolac 60 MG/2 ML SDV IM ONE (12:44)
[2017-05-07] MEDS ORDERED: Ondansetron 4 MG Tab.DIS PO ONE (12:44)
--- NOTE | 2017-05-07 12:51 | EDM.PDOC ---
ED HPI GENERAL MEDICAL PROBLEM - General Chief Complaint: Abdominal Pain Stated Complaint: Abdominal pain, back pain, vomiting Time Seen by Provider: 05/07/17 12:20 Source of Information: Reports: Patient, Old Records, RN Notes Reviewed History Limitations: Reports: No Limitations - History of Present Illness INITIAL COMMENTS - FREE TEXT/NARRATIVE: 31 year old male presents to the ED with right sided back and flank pain for the past 7-10 days. The pain is intermittent and is associated with nausea and vomiting. He locates two areas of pain. The first is in his low lumbar spine on the right. This is more constant and tender to touch. He has no radiation down his leg or buttocks. He has a history of chronic back pain and is scheduled for injections at [facility] in [place] in two days. The second is to his right flank and RUQ which is described as crampy. His nausea seems to be associated with the pain. He is able to eat and keep fluids down at times. He has no fever , chills, or diarrhea. His cramping abdominal pain seems to have worsened since his CT scan with oral contrast yesterday. He's had a several bowel movements since his discharge yesterday but no diarrhea. He reports black stools for quite some time. He has not taken any medications including peptobismol that would cause the black stools. No chest pain, shortness of breath, cough, dizziness, lightheadedness, syncope. This is his 3rd visit recently to our ED. He was first seen by Dr. Monet on 09/05 for flank pain. He had recently been diagnosed with a kidney stone. He was prescribed Zofran and Percocet #20 that day. He took the last Percocet today and is also out of Zofran. He returned to the ED yesterday and was evaluated by Dr. Thomason. He had a full workup including CBC, CMP, lipase, UA, and CT of of abdomen/pelvis with contrast. CBC, CMP, and Lipase were normal. His UA was negative for infection but positive for blood. CT of abdomen/pelvis was negative for acute findings. He reported black stools. He had a rectal exam yesterday which was normal with negative occult test. His workup was normal and he was discharged home. The patient says he now feels worse. Abdomen Pain Score (Numeric/FACES): 7 - Related Data Allergies Allergy/AdvReac Type Severity Reaction Status Date / Time methocarbamol [From Robaxin] Allergy Itching Verified 05/06/17 14:04 tramadol AdvReac Sweating Verified 05/06/17 14:04 Home Meds: Home Meds Cyclophosphamide 50 mg PO DAILY 04/25/16 [History] Pantoprazole Sodium [Protonix] 40 mg PO BID 04/25/16 [History] predniSONE [Prednisone] 20 mg PO DAILY 04/25/16 [History] Albuterol [IJD: Ventolin HFA] 2 puff INH QID #18 gm 03/30/17 [Rx] Lisinopril [Prinivil] 40 mg PO DAILY #40 tablet 03/30/17 [Rx] Ondansetron [Zofran ODT] 4 mg PO Q6H PRN #20 tab.dis 04/29/17 [Rx] oxyCODONE HCl/Acetaminophen [Percocet 5-325 mg Tablet] 1 - 2 each PO Q6HR PRN # 20 tablet 04/29/17 [Rx] Tamsulosin [Flomax] 0.4 mg PO PCBREAKFAST 05/06/17 [History] Acetaminophen/oxyCODONE [Percocet 325-5 MG] 1 - 2 tab PO Q6H #15 tablet [Rx] Ondansetron [Zofran ODT] 4 mg PO Q6H PRN #20 tab.dis 05/07/17 [Rx] Past Medical History HEENT History: Reports: Impaired Vision Other HEENT History: wears eyeglasses Cardiovascular History: Reports: Hypertension Respiratory History: Reports: Intubation, Previous, Pneumothorax Other Respiratory History: ANCA Vasculitis Gastrointestinal History: Reports: GERD Genitourinary History: Reports: Renal Calculus, Renal Disease Musculoskeletal History: Reports: Back Pain, Chronic Neurological History: Reports: Headaches, Chronic Endocrine/Metabolic History: Reports: Obesity/BMI 30+ Immunologic History: Reports: Other (See Below) Other Immunologic History: vasculitis, "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." - Past Surgical History Respiratory Surgical History: Reports: Other (See Below) GI Surgical History: Reports: Appendectomy Neurological Surgical History: Reports: C-Spine, Lumbar Spine Musculoskeletal Surgical History: Reports: Other (See Below) Social & Family History - Family History Family Medical History: Noncontributory Cardiac: Reports: [place] Neurological: Reports: Other (See Below) Other Neurological Family History: Mother had a crani - Tobacco Use Smoking Status *Q: Never Smoker Used Tobacco, but Quit: Yes Second Hand Smoke Exposure: No - Caffeine Use Caffeine Use: Reports: Soda Other Caffeine Use: Daily soda drinker - Alcohol Use Days Per Week of Alcohol Use: 0 Number of Drinks Per Day: 1 Total Drinks Per Week: 0 - Recreational Drug Use Recreational Drug Use: No - Living Situation & Occupation Living situation: Reports: Single, Other (Work camp) 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 Denies: Fever, Chills Respiratory: Reports: No Symptoms. Denies: Shortness of Breath Cardiovascular: Reports: No Symptoms. Denies: Chest Pain GI/Abdominal: Reports: Abdominal Pain, Black Stool, Nausea, Vomiting. Denies: Constipation, Diarrhea : Reports: Flank Pain, Hematuria, Other (no testicular pain). Denies: Dysuria , Frequency Musculoskeletal: Reports: Back Pain ED EXAM, GENERAL - Physical Exam Exam: See Below Exam Limited By: No Limitations General Appearance: Alert, WD/WN, No Apparent Distress, Anxious Respiratory/Chest: No Respiratory Distress, Lungs Clear, Normal Breath Sounds, No Accessory Muscle Use, Chest Non-Tender Cardiovascular: Normal Peripheral Pulses, Tachycardia GI/Abdominal: Soft, Non-Tender, No Organomegaly, No Distention, No Mass, Other ( hyperactive bowel sounds ). No: Rigid, Rebound, Tender Back Exam: CVA Tenderness (R), Paraspinal Tenderness (lumbar spine ), Vertebral Tenderness (lumbar spine ), Other (significant tenderness over the SI joint which seems to be the most painful area of pain ). No: CVA Tenderness (L) Neurological: Alert, Oriented, Normal Cognition Course - Vital Signs Last Recorded V/S: Last Vital Signs Temp 98.3 F 05/07/17 12:06 Pulse 156 H 05/07/17 12:06 Resp 20 05/07/17 12:06 BP 156/103 H 05/07/17 12:06 Pulse Ox 100 05/07/17 12:06 - Orders/Labs/Meds Meds: Medications Discontinued Medications Generic Name Dose Route Start Last Admin Trade Name Freq PRN Reason Stop Dose Admin Ketorolac Tromethamine 60 mg 05/07/17 12:44 05/07/17 12:50 Toradol IM 05/07/17 12:45 60 mg ONETIME ONE Administration Ondansetron HCl 4 mg 05/07/17 12:44 05/07/17 12:49 Zofran Odt PO 05/07/17 12:45 4 mg ONETIME ONE Administration - Re-Assessments/Exams Free Text/Narrative Re-Assessment/Exam: The patient is very anxious. He was tachycardic on arrival but this improved without treatment. On exam, his abdominal exam is normal. He had mild right flank pain. The most significant area of pain today is to his lumbar spine and right SI joint. He had significant pain with palpation of his SI joint. I suspect his symptoms are related to two causes. First, his chronic back pain. He is scheduled for a spine injection in two days. Second, I suspect his abdominal cramping is related to the oral contrast he received yesterday. Again, he had a complete workup yesterday including a CT scan. Dr. Barker and I reviewed the patient's CT scan and agree with normal findings. He has no hydronephrosis or evidence of kidney stone. He had a moderate amount of stool within his colon. His symptoms were treated with Toradol and Zofran. No sedating medications were given because he needs to drive today. Prescriptions provided for zofran and percocet. He was instructed to follow-up in [place] as scheduled and with his PCP Julito Hatch for further management. Departure - Departure Time of Disposition: 12:46 Disposition: Home, Self-Care 01 Condition: Good Clinical Impression: Abdominal cramping Back pain, chronic Qualifiers: Back pain location: low back pain Back pain laterality: right Sciatica presence : without sciatica Qualified Code(s): M54.5 - Low back pain Nausea & vomiting Qualifiers: Vomiting type: unspecified Vomiting Intractability: non-intractable Qualified Code(s): R11.2 - Nausea with vomiting, unspecified - Discharge Information Prescriptions: Acetaminophen/oxyCODONE [Percocet 325-5 MG] 1 - 2 tab PO Q6H #15 tablet Ondansetron [Zofran ODT] 4 mg PO Q6H PRN #20 tab.dis PRN Reason: Nausea Instructions: Abdominal Pain, Adult, Back Pain, Adult, Nausea and Vomiting, Adult Referrals: Julito Hatch PA-C [Primary Care Provider] - Forms: ED Department Discharge Additional Instructions: Follow-up in [place] on Monday for your back as scheduled Tylenol 650 mg every 8 hours as needed for mild pain Percocet 1-2 tabs every 6 hours as needed for more severe pain Do not exceed 3000mg of Tylenol per day No driving for at least 8 hours after taking Percocet Zofran 1 tab every 6 hours as needed for nausea Follow-up with Julito Hatch this week Return to ER if your symptoms worsen or do not improve
== END 2017-05-07 13:06 | disposition home or self-care (01) ==
LOC: JD.ED 11:58
DX: R10.9 Unspecified abdominal pain (principal); M54.5 Low back pain; R11.2 Nausea with vomiting, unspecified; I10 Essential (primary) hypertension; K21.9 Gastro-esophageal reflux disease without esophagitis; E66.9 Obesity, unspecified; Z88.5 Allergy status to narcotic agent; Z79.899 Other long term (current) drug therapy; Z88.8 Allergy status to other drugs, medicaments and biological substances; Z68.34 Body mass index [BMI] 34.0-34.9, adult; Z90.49 Acquired absence of other specified parts of digestive tract
CPT/HCPCS: 96372; 99284; A9270; J1885; 99283

== ENCOUNTER 2017-10-06 18:42 | Emergency (ER) | payer OTHER, BC ==
[2017-10-06 18:54] VITALS: BP 129/84
--- NOTE | 2017-10-06 20:16 | EDM.PDOC ---
ED HPI GENERAL MEDICAL PROBLEM - General Chief Complaint: Chest Pain Stated Complaint: CHEST PAIN Time Seen by Provider: 10/06/17 19:05 Source of Information: Reports: Patient, Old Records, RN Notes Reviewed History Limitations: Reports: No Limitations - History of Present Illness INITIAL COMMENTS - FREE TEXT/NARRATIVE: The patient states that he was diagnosed with "double pneumonia" about 2 weeks ago, while home in [place], [place]. He states that he was admitted to an ICU. He states that his prednisone dosage was increased, and they added metoprolol. He now presents with central chest pain, radiating to his right scapula, that began yesterday, 10/05/2017. He states that the pain initially felt like heartburn, but it is now sharp. States it is worse with deep breaths, and lying in a supine position. He states that he has an occasional cough, productive of yellow/colunga phlegm. He denies fever and chills. He reports shortness of breath, but no wheezing. He has had nausea, but no vomiting, constipation, or diarrhea. The patient states that he has had similar symptoms on and off since 2012, due to pneumonia. The patient's PCP is Dr. Campbell. The patient states that he has an appointment with Dr. Campbell this coming 10/09/2017. Chest Pain Score (Numeric/FACES): 7 - Related Data Allergies Allergy/AdvReac Type Severity Reaction Status Date / Time methocarbamol [From Robaxin] Allergy Itching Verified 10/06/17 18:50 tramadol AdvReac Sweating Verified 10/06/17 18:50 Home Meds: Home Meds Cyclophosphamide 50 mg PO DAILY 04/25/16 [History] Pantoprazole Sodium [Protonix] 40 mg PO BID 04/25/16 [History] predniSONE [Prednisone] 20 mg PO DAILY 04/25/16 [History] Albuterol [IJD: Ventolin HFA] 2 puff INH QID #18 gm 03/30/17 [Rx] Lisinopril [Prinivil] 40 mg PO DAILY #40 tablet 03/30/17 [Rx] Ondansetron [Zofran ODT] 4 mg PO Q6H PRN #20 tab.dis 04/29/17 [Rx] oxyCODONE HCl/Acetaminophen [Percocet 5-325 mg Tablet] 1 - 2 each PO Q6HR PRN # 20 tablet 04/29/17 [Rx] Tamsulosin [Flomax] 0.4 mg PO PCBREAKFAST 05/06/17 [History] Acetaminophen/oxyCODONE [Percocet 325-5 MG] 1 - 2 tab PO Q6H #15 tablet [Rx] Ondansetron [Zofran ODT] 4 mg PO Q6H PRN #20 tab.dis 05/07/17 [Rx] Past Medical History HEENT History: Reports: Impaired Vision Other HEENT History: wears eyeglasses Cardiovascular History: Reports: Hypertension Respiratory History: Reports: Intubation, Previous, Pneumothorax Gastrointestinal History: Reports: GERD Genitourinary History: Reports: Renal Calculus, Renal Disease (previously) Musculoskeletal History: Reports: Back Pain, Chronic Neurological History: Reports: Headaches, Chronic Endocrine/Metabolic History: Reports: Obesity/BMI 30+ 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) - Past Surgical History Respiratory Surgical History: Reports: Other (See Below) (Right VATS) GI Surgical History: Reports: Appendectomy Neurological Surgical History: Reports: C-Spine (C5-C7 ACDF), Lumbar Spine (L5- S1 discectomy) Social & Family History - Family History Family Medical History: Noncontributory Cardiac: Reports: [place] Neurological: Reports: Other (See Below) Other Neurological Family History: Mother had a crani - Tobacco Use Smoking Status *Q: Never Smoker Second Hand Smoke Exposure: No - Caffeine Use Caffeine Use: Reports: Soda Other Caffeine Use: Daily soda drinker - Alcohol Use Alcohol Use History: Yes Alcohol Use Frequency: Socially - Recreational Drug Use Recreational Drug Use: No - Living Situation & Occupation Living situation: Reports: Single, Other (Work camp) 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 Denies: Constipation, Diarrhea , Vomiting : Reports: No Symptoms Musculoskeletal: Reports: No Symptoms Skin: Reports: No Symptoms Neurological: Reports: No Symptoms Psychiatric: Reports: No Symptoms Hematologic/Lymphatic: Reports: No Symptoms Immunologic: Reports: No Symptoms ED EXAM, GENERAL - Physical Exam Exam: See Below Exam Limited By: No Limitations General Appearance: Alert, WD/WN, No Apparent Distress Eye Exam: Bilateral Eye: Normal Inspection Ears: Normal External Exam, Hearing Grossly Normal Nose: Normal Inspection, No Blood Throat/Mouth: Normal Inspection, Normal Lips, Normal Voice, No Airway Compromise Head: Atraumatic, Normocephalic Neck: Normal Inspection, Full Range of Motion Respiratory/Chest: No Respiratory Distress, No Accessory Muscle Use, Crackles ( Uppper right lungfield. Clear elsewhere.) Cardiovascular: Normal Peripheral Pulses, Regular Rate, Rhythm, No Gallop, No JVD, No Murmur, No Rub Peripheral Pulses: 4+: Radial (L), Radial (R) GI/Abdominal: Normal Bowel Sounds, Soft, Non-Tender, No Organomegaly, No Distention, No Abnormal Bruit, No Mass, Other (Obese) (Male) Exam: Deferred Rectal (Males) Exam: Deferred Back Exam: Normal Inspection, Full Range of Motion, NT Extremities: Normal Inspection, Normal Range of Motion, No Pedal Edema, Normal Capillary Refill Neurological: Alert, Oriented, Normal Cognition, No Motor/Sensory Deficits Psychiatric: Normal Affect Skin Exam: Warm, Dry, Intact, Normal Color, No Rash EKG INTERPRETATION EKG Date: 10/06/17 Time: 18:58 Rhythm: NSR Rate (Beats/Min): 95 [place]: Normal P-Wave: Present QRS: Normal ST-T: Other (Diffuse T-wave inversion, but no ischemic changes) QT: Normal Comparison: No Change (03/27/2017) Course - Vital Signs Last Recorded V/S: Last Vital Signs Temp 36.4 C 10/06/17 18:50 Pulse 92 10/06/17 18:50 Resp BP 129/84 10/06/17 18:50 Pulse Ox 100 10/06/17 18:50 - Orders/Labs/Meds Orders: Active Orders 24 hr Category Date Time Status EKG Documentation Completion [RC] STAT Care 10/06/17 19:37 Active Chest 2V [CR] Stat Exams 10/06/17 19:37 Taken CULTURE BLOOD [BC] Stat Lab 10/06/17 19:50 Received CULTURE BLOOD [BC] Stat Lab 10/06/17 20:14 Received Blood Culture x2 Reflex Set [OM.PC] Stat Oth 10/06/17 19:40 Ordered Labs: Laboratory Tests 10/06/17 10/06/17 10/06/17 Range/Units 19:50 19:50 19:50 WBC 14.24 H (4.23-9.07) K/mm3 RBC 3.95 L (4.63-6.08) M/mm3 Hgb 11.4 L (13.7-17.5) gm/L Hct 36.4 L (40.1-51.0) % MCV 92.2 (79.0-92.2) fl MCH 28.9 (25.7-32.2) pg MCHC 31.3 L (32.2-35.5) g/dl RDW Std Deviation 52.7 H (35.1-43.9) fL Plt Count 344 H (163-337) K/mm3 MPV 11.2 (9.4-12.3) fl Neutrophils % (Manual) 85 H (40-60) % Band Neutrophils % 0 (0-10) % Lymphocytes % (Manual) 15 L (20-40) % Atypical Lymphs % 0 % Monocytes % (Manual) 0 L (2-10) % Eosinophils % (Manual) 0 L (0.8-7.0) % Basophils % (Manual) 0 L (0.2-1.2) Platelet Estimate Adequate Polychromasia Few Poikilocytosis 1+ slight Anisocytosis 1+ slight Macrocytosis 1+ slight RBC Morph Comment Not Reportable PT (8.0-13.0) SECONDS INR APTT (22-36) SECONDS D-Dimer, Quantitative 0.19 (0.19-0.59) mg/L Sodium 144 (136-145) mEq/L Potassium 3.8 (3.5-5.1) mEq/L Chloride 108 H (98-107) mEq/L Carbon Dioxide 23 (21-32) mEq/L Anion Gap 16.8 H (5-15) BUN 22 H (7-18) mg/dL Creatinine 1.5 H (0.7-1.3) mg/dL Est Cr Clr Drug Dosing 71.35 mL/min Estimated GFR (MDRD) 55 (>60) mL/min BUN/Creatinine Ratio 14.7 (14-18) Glucose 91 (74-106) mg/dL Lactic Acid (0.4-2.0) mmol/L Calcium 9.2 (8.5-10.1) mg/dL Total Bilirubin 0.4 (0.2-1.0) mg/dL AST 25 (15-37) U/L ALT 33 (16-63) U/L Alkaline Phosphatase 104 (46-116) U/L Troponin I < 0.017 (0.00-0.056) ng/mL Total Protein 6.9 (6.4-8.2) g/dl Albumin 3.6 (3.4-5.0) g/dl Globulin 3.3 gm/dL Albumin/Globulin Ratio 1.1 (1-2) 10/06/17 10/06/17 Range/Units 19:50 19:50 WBC (4.23-9.07) K/mm3 RBC (4.63-6.08) M/mm3 Hgb (13.7-17.5) gm/L Hct (40.1-51.0) % MCV (79.0-92.2) fl MCH (25.7-32.2) pg MCHC (32.2-35.5) g/dl RDW Std Deviation (35.1-43.9) fL Plt Count (163-337) K/mm3 MPV (9.4-12.3) fl Neutrophils % (Manual) (40-60) % Band Neutrophils % (0-10) % Lymphocytes % (Manual) (20-40) % Atypical Lymphs % % Monocytes % (Manual) (2-10) % Eosinophils % (Manual) (0.8-7.0) % Basophils % (Manual) (0.2-1.2) Platelet Estimate Polychromasia Poikilocytosis Anisocytosis Macrocytosis RBC Morph Comment PT 10.0 (8.0-13.0) SECONDS INR 0.92 APTT 24 (22-36) SECONDS D-Dimer, Quantitative (0.19-0.59) mg/L Sodium (136-145) mEq/L Potassium (3.5-5.1) mEq/L Chloride (98-107) mEq/L Carbon Dioxide (21-32) mEq/L Anion Gap (5-15) BUN (7-18) mg/dL Creatinine (0.7-1.3) mg/dL Est Cr Clr Drug Dosing mL/min Estimated GFR (MDRD) (>60) mL/min BUN/Creatinine Ratio (14-18) Glucose (74-106) mg/dL Lactic Acid 0.8 (0.4-2.0) mmol/L Calcium (8.5-10.1) mg/dL Total Bilirubin (0.2-1.0) mg/dL AST (15-37) U/L ALT (16-63) U/L Alkaline Phosphatase (46-116) U/L Troponin I (0.00-0.056) ng/mL Total Protein (6.4-8.2) g/dl Albumin (3.4-5.0) g/dl Globulin gm/dL Albumin/Globulin Ratio (1-2) - Re-Assessments/Exams Free Text/Narrative Re-Assessment/Exam: 10/06/17 20:35 Two-view chest radiograph appears to be grossly unremarkable. Cardiac silhouette is within normal limits. No pulmonary vascular congestion. No pleural effusions. Slight blunting of the right costophrenic angle noted, however, it is unchanged from prior chest radiographs dated 03/28/2017 and 2016. No focal infiltrate. No pneumothorax. Formal read per the Radiologist pending. 10/06/17 21:17 Test results discussed with the patient. His WBC count is elevated at 14.24, but with 0% bandemia, which is explainable by the patient's current prednisone. The patient's BUN/Cr are elevated at 22/1.5. They were normal on 05/06/2017, although the patient has had acute kidney injury in the past. For this, I am recommending adequate hydration. The remainder of the patient's workup was unremarkable, and does not explain the cause of the patient's pain. No emergency medical condition appears to be present. I am admitting the patient take [id number] Tylenol as needed for discomfort, and follow up with his PCP, Dr. Campbell, this coming 10/09/2017, if his pain is still present. Departure - Departure Time of Disposition: 21:19 Disposition: Home, Self-Care 01 Condition: Good Clinical Impression: Pleuritic chest pain, Acute kidney injury - Discharge Information Instructions: Acute Kidney Injury, Chest Wall Pain Referrals: Mushtaq Campbell MD [Primary Care Provider] - Forms: ED Department Discharge Additional Instructions: You were seen in the emergency room for central chest pain radiating to your right shoulder blade area, along with shortness of breath and an occasional cough. Workup in the ER included a CBC, CMP, troponin, D-dimer, coags, 2 sets of blood cultures, a flu swab, an ECG, and a chest x-ray. Your WBC count is mildly elevated at 14.24, but with 0% bandemia. This is not consistent with an infection, and is MOST LIKELY caused by the prednisone that you are on. Your kidney numbers are mildly elevated. There are numerous potential causes for this. You have had this before. We recommend that you stay well hydrated. The remainder of your workup was unremarkable, and does not explain the cause of your pain. He have not suffered a heart attack. You do not have a blood clot in your lungs. You do not have pneumonia. You do not have a collapsed lung. We recommend that you take [id number] Tylenol as needed for discomfort. Because of your mildly elevated kidney numbers, we recommend that you avoid NSAIDs such as ibuprofen and naproxen. If your pain is still present by 10/09/2017, please follow-up with your PCP, Dr. Campbell, for further evaluation. If any other problems, please do not hesitate to return to the ER. - My Orders Last 24 Hours: My Active Orders 10/06/17 19:37 EKG Documentation Completion [RC] STAT Chest 2V [CR] Stat 10/06/17 19:40 Blood Culture x2 Reflex Set [OM.PC] Stat 10/06/17 19:50 CULTURE BLOOD [BC] Stat 10/06/17 20:14 CULTURE BLOOD [BC] Stat - Assessment/Plan Last 24 Hours: My Active Orders 10/06/17 19:37 EKG Documentation Completion [RC] STAT Chest 2V [CR] Stat 10/06/17 19:40 Blood Culture x2 Reflex Set [OM.PC] Stat 10/06/17 19:50 CULTURE BLOOD [BC] Stat 10/06/17 20:14 CULTURE BLOOD [BC] Stat
--- NOTE | 2017-10-09 08:35 | CR ---
Chest: Two views of the chest were obtained. Comparison: Prior chest x-ray of 04/05/17. Blunting of the right lateral costophrenic angle is seen. Slight parenchymal density is noted within the right lung base which appears stable and likely represents scarring. Lungs otherwise are clear. Previous cervical spine surgery is noted. Bony structures are otherwise within normal limits. Impression: 1. Chronic findings within the right lung base. Previous cervical spine surgery. 2. Nothing acute is appreciated on two-view chest x-ray. Diagnostic code #2
== END 2017-10-06 21:38 | disposition home or self-care (01) ==
LOC: JD.ED 18:42
DX: R07.81 Pleurodynia (principal); I10 Essential (primary) hypertension; Z88.6 Allergy status to analgesic agent; Z88.8 Allergy status to other drugs, medicaments and biological substances; Z79.899 Other long term (current) drug therapy
CPT/HCPCS: 36415; 71020; 71020-26; 80053; 83605; 84484; 85025; 85379; 85610; 85730; 87040; 87804; 93005; 93010; 99285; 99285-25

== ENCOUNTER 2017-10-09 21:11 | Emergency (ER) | payer OTHER, BC ==
--- NOTE | 2017-10-09 21:57 | EDM.PDOC ---
ED HPI GENERAL MEDICAL PROBLEM - General Chief Complaint: Chest Pain Stated Complaint: CHEST PAIN Time Seen by Provider: 10/09/17 21:34 Source of Information: Reports: Patient History Limitations: Reports: No Limitations - History of Present Illness INITIAL COMMENTS - FREE TEXT/NARRATIVE: Patient is a 31-year-old male from [place] who presents ED complaining of right -sided chest discomfort that radiates around to scapula. Patient describes the pain as a sharp sensation worse with taking a deep breath, palpation, laying flat, and movement. States it feels somebody is sticking a knife in his chest. This began and 10/05/2017 with no precipitating factors. He was evaluated the following day in the ED 10/06/2017. Patient had chest x-ray, EKG, and labwork obtained. Right Chest Pain Score (Numeric/FACES): 8 - Related Data Allergies Allergy/AdvReac Type Severity Reaction Status Date / Time methocarbamol [From Robaxin] Allergy Itching Verified 10/09/17 21:20 tramadol AdvReac Sweating Verified 10/09/17 21:20 Home Meds: Home Meds Cyclophosphamide 50 mg PO DAILY 04/25/16 [History] Pantoprazole Sodium [Protonix] 40 mg PO BID 04/25/16 [History] predniSONE [Prednisone] 20 mg PO DAILY 04/25/16 [History] Albuterol [IJD: Ventolin HFA] 2 puff INH QID #18 gm 03/30/17 [Rx] Lisinopril [Prinivil] 40 mg PO DAILY #40 tablet 03/30/17 [Rx] Metoprolol Tartrate 25 mg PO BID 10/09/17 [History] Past Medical History HEENT History: Reports: Impaired Vision Other HEENT History: wears eyeglasses Cardiovascular History: Reports: Hypertension Respiratory History: Reports: Intubation, Previous, Pneumothorax Other Respiratory History: ANCA Vasculitis Gastrointestinal History: Reports: GERD Genitourinary History: Reports: Renal Calculus, Renal Disease Musculoskeletal History: Reports: Back Pain, Chronic Neurological History: Reports: Headaches, Chronic Endocrine/Metabolic History: Reports: Obesity/BMI 30+ Immunologic History: Reports: Other (See Below) Other Immunologic History: vasculitis, "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." - Past Surgical History Respiratory Surgical History: Reports: Other (See Below) GI Surgical History: Reports: Appendectomy Neurological Surgical History: Reports: C-Spine, Lumbar Spine Social & Family History - Family History Family Medical History: Noncontributory Cardiac: Reports: [place] Neurological: Reports: Other (See Below) Other Neurological Family History: Mother had a crani - Tobacco Use Smoking Status *Q: Former Smoker Used Tobacco, but Quit: Yes Month Tobacco Last Used: 10 years Second Hand Smoke Exposure: No - Caffeine Use Caffeine Use: Reports: Soda Other Caffeine Use: Daily soda drinker - Alcohol Use Days Per Week of Alcohol Use: 0 Number of Drinks Per Day: 1 Total Drinks Per Week: 0 - Recreational Drug Use Recreational Drug Use: No - Living Situation & Occupation Living situation: Reports: Single, Other (Work camp) 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 Denies: Shortness of Breath, Wheezing, Cough, Sputum, Hemoptysis Cardiovascular: Reports: Chest Pain. Denies: Dyspnea on Exertion, Palpitations , PND, Syncope GI/Abdominal: Reports: No Symptoms : Reports: No Symptoms Musculoskeletal: Reports: Shoulder Pain (right). Denies: Back Pain Skin: Reports: No Symptoms Neurological: Denies: Dizziness ED EXAM, GENERAL - Physical Exam Exam: See Below Exam Limited By: No Limitations General Appearance: Alert, WD/WN, No Apparent Distress Ears: Hearing Grossly Normal Nose: Normal Inspection Throat/Mouth: Normal Voice, No Airway Compromise Neck: Normal Inspection, Supple Respiratory/Chest: No Respiratory Distress, Lungs Clear, Normal Breath Sounds, No Accessory Muscle Use, Other (Tenderness to the right anterior chest with palpation. Large surgical incision to the inferior boarder of the right scapula from previous thoracotomy. ) Cardiovascular: Normal Peripheral Pulses, Regular Rate, Rhythm, No Murmur Peripheral Pulses: 3+: Radial (L), Radial (R) GI/Abdominal: Normal Bowel Sounds, Soft, Non-Tender, No Organomegaly, No Distention, Other (negative llamas sign) Neurological: Alert, Oriented, CN II-XII Intact, Normal Cognition, No Motor/ Sensory Deficits Psychiatric: Normal Affect, Normal Mood Skin Exam: Warm, Dry, Intact, Normal Color Course - Vital Signs Last Recorded V/S: Last Vital Signs Temp 98.3 F 10/09/17 21:14 Pulse 75 10/09/17 21:14 Resp 18 10/09/17 21:14 BP 140/87 10/09/17 21:14 Pulse Ox 100 10/09/17 21:14 - Orders/Labs/Meds Orders: Active Orders 24 hr Category Date Time Status EKG 12 Lead [EKG Documentation Completion] [RC] STAT Care 10/09/17 21:38 Active EKG 12 Lead [EKG Documentation Completion] [RC] STAT Care 10/09/17 21:38 Inactive Labs: Laboratory Tests 10/09/17 10/09/17 10/09/17 Range/Units 22:05 22:05 22:05 WBC 12.20 H (4.23-9.07) K/mm3 RBC 3.85 L (4.63-6.08) M/mm3 Hgb 11.0 L (13.7-17.5) gm/L Hct 35.8 L (40.1-51.0) % MCV 93.0 H (79.0-92.2) fl MCH 28.6 (25.7-32.2) pg MCHC 30.7 L (32.2-35.5) g/dl RDW Std Deviation 51.4 H (35.1-43.9) fL Plt Count 289 (163-337) K/mm3 MPV 10.9 (9.4-12.3) fl Neut % (Auto) 77.6 H (34.0-67.9) % Lymph % (Auto) 12.8 L (21.8-53.1) % [place] % (Auto) 7.9 (5.3-12.2) % Eos % (Auto) 1.2 (0.8-7.0) Baso % (Auto) 0.3 (0.1-1.2) % Neut # (Auto) 9.47 H (1.78-5.38) K/mm3 Lymph # (Auto) 1.56 (1.32-3.57) K/mm3 [place] # (Auto) 0.96 H (0.30-0.82) K/mm3 Eos # (Auto) 0.15 (0.04-0.54) K/mm3 Baso # (Auto) 0.04 (0.01-0.08) K/mm3 D-Dimer, Quantitative < 0.19 L (0.19-0.59) mg/L Sodium 146 H (136-145) mEq/L Potassium 3.7 (3.5-5.1) mEq/L Chloride 110 H (98-107) mEq/L Carbon Dioxide 25 (21-32) mEq/L Anion Gap 14.7 (5-15) BUN 21 H (7-18) mg/dL Creatinine 1.2 (0.7-1.3) mg/dL Est Cr Clr Drug Dosing 89.19 mL/min Estimated GFR (MDRD) > 60 (>60) mL/min BUN/Creatinine Ratio 17.5 (14-18) Glucose 98 (74-106) mg/dL Calcium 8.8 (8.5-10.1) mg/dL Total Bilirubin 0.2 (0.2-1.0) mg/dL AST 16 (15-37) U/L ALT 28 (16-63) U/L Alkaline Phosphatase 92 (46-116) U/L C-Reactive Protein < 0.2 (<1.0) mg/dL Total Protein 6.3 L (6.4-8.2) g/dl Albumin 3.6 (3.4-5.0) g/dl Globulin 2.7 gm/dL Albumin/Globulin Ratio 1.3 (1-2) - Re-Assessments/Exams Free Text/Narrative Re-Assessment/Exam: EKG sinus rhythm at a rate of [address] changes noted. Reviewed with previous EKG obtained 10/06/2017 with no severe changes. Ordered basic labs including: CBC, C14, CRP, and DDimer. Labs reviewed: White blood cell count 12.20, hemoglobin 11.0, platelet count 289 , d-dimer was within normal limits, chemistry panel was essentially normal. CRP less than 0.2. Discussed findings with patient. Pain is unchanged. Offered to obtain CT of his chest to rule other etiology of chest discomfort that may not be visible on chest x-ray. Patient does have a history of pneumothorax and also thoracotomy to the right chest. Patient has refused a CT and will await to be seen by his PCP this coming week. Patient was on a pain contract prior to moving to [place] for chronic pain from his thoracotomy. Pain patient is currently experiencing is following the nerve/nerves that may have been affected with thoracotomy. Again patient was in a chronic pain contract for this pain. Patient did not provide this during history taking. He has not had a prescription for narcotic pain medications since August. Again has been utilizing Tylenol and Aleve with minimal relief. He is hoping to set up a pain contract with Dr. Campbell. Will discharge patient home with instructions as documented. Departure - Departure Time of Disposition: 23:06 Disposition: Home, Self-Care 01 Condition: Good Clinical Impression: Chronic chest wall pain Referrals: Mushtaq Campbell MD [Primary Care Provider] - Forms: ED Department Discharge, ED Return to Work/School Form Additional Instructions: As discussed keep appt with Dr. Campbell for this coming week. Treat the chronic chest wall pain with tylenol 650mg every 6 hrs and aleve 1-2 tabs twice a day as needed. Apply biofreeze to the affected area as needed. Refrain from any activities that cause worsening pain. Take the norco 1 tab every [address] for [address] not drive while taking the norco. Return to the E.D. for any new or worsening symptoms. - My Orders Last 24 Hours: My Active Orders 10/09/17 21:38 EKG 12 Lead [EKG Documentation Completion] [RC] STAT EKG 12 Lead [EKG Documentation Completion] [RC] STAT - Assessment/Plan Last 24 Hours: My Active Orders 10/09/17 21:38 EKG 12 Lead [EKG Documentation Completion] [RC] STAT EKG 12 Lead [EKG Documentation Completion] [RC] STAT
[2017-10-09 23:38] VITALS: BP 143/94
== END 2017-10-09 23:24 | disposition home or self-care (01) ==
LOC: JD.ED 21:11
DX: R07.89 Other chest pain (principal); G89.29 Other chronic pain; I10 Essential (primary) hypertension; Z88.5 Allergy status to narcotic agent; Z88.8 Allergy status to other drugs, medicaments and biological substances; Z79.899 Other long term (current) drug therapy; Z87.891 Personal history of nicotine dependence
CPT/HCPCS: 36415; 80053; 85025; 85379; 86140; 93005; 99284; 99285-25

== ENCOUNTER 2017-10-28 14:33 | Emergency (ER) | payer OTHER, MEDICAID ==
[2017-10-28 14:58] VITALS: BP 153/100
--- NOTE | 2017-10-28 15:42 | EDM.PDOC ---
ED HPI GENERAL MEDICAL PROBLEM - General Chief Complaint: Back Pain or Injury Stated Complaint: NECK PAIN Time Seen by Provider: 10/28/17 15:17 Source of Information: Reports: Patient History Limitations: Reports: No Limitations - History of Present Illness INITIAL COMMENTS - FREE TEXT/NARRATIVE: Patient is a 31-year-old male who presents to the ED complaining of midline cervical spine pain that started approximately 1.5 hours ago while at work. Patient states he was unloading his truck when a hose blew hitting him in the mid back causing his neck to crack. Since the accident he's developed increased neck stiffness with inability to turn left and right secondary to pain. States he has also developed pain to the left lateral aspect of his neck worse with palpation. He has no numbness/tingling to his upper extremities. No loss of consciousness. He has a history of chronic back pain unchanged. He has chronic back pain has been evaluated by me in the ED. He has an appointment with Dr. Zabala orthopedic surgeon this coming week for reevaluation. Of note patient does have a history of chronic pain and was under a pain contract prior to moving to [place]. Ever since then he's been having issues with pain therapy and has been evaluated in the E.D. for pain to his back. Treatments PET ADOPTION COUNSELOR: Reports: Acetaminophen, NSAIDS, Other (see below) Other Treatments PET ADOPTION COUNSELOR: biofreeze Middle Back Pain Score (Numeric/FACES): 8 - Related Data Allergies Allergy/AdvReac Type Severity Reaction Status Date / Time methocarbamol [From Robaxin] Allergy Itching Verified 10/28/17 14:57 tramadol AdvReac Sweating Verified 10/28/17 14:57 Home Meds: Home Meds Cyclophosphamide 50 mg PO DAILY 04/25/16 [History] Pantoprazole Sodium [Protonix] 40 mg PO BID 04/25/16 [History] predniSONE [Prednisone] 20 mg PO DAILY 04/25/16 [History] Lisinopril [Prinivil] 40 mg PO DAILY #40 tablet 03/30/17 [Rx] Metoprolol Tartrate 25 mg PO BID 10/09/17 [History] Albuterol [IJD: Ventolin HFA] 2 puff INH QID PRN 10/28/17 [History] Past Medical History HEENT History: Reports: Impaired Vision Other HEENT History: wears eyeglasses Cardiovascular History: Reports: Hypertension Respiratory History: Reports: Intubation, Previous, Pneumothorax Other Respiratory History: ANCA Vasculitis Gastrointestinal History: Reports: GERD Genitourinary History: Reports: Renal Calculus, Renal Disease Musculoskeletal History: Reports: Back Pain, Chronic, Neck Pain, Chronic Neurological History: Reports: Headaches, Chronic Endocrine/Metabolic History: Reports: Obesity/BMI 30+ Immunologic History: Reports: Other (See Below) Other Immunologic History: vasculitis, "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." - Past Surgical History Respiratory Surgical History: Reports: Other (See Below) GI Surgical History: Reports: Appendectomy Neurological Surgical History: Reports: C-Spine, Lumbar Spine Social & Family History - Family History Family Medical History: Noncontributory Cardiac: Reports: [place] Neurological: Reports: Other (See Below) Other Neurological Family History: Mother had a crani - Tobacco Use Smoking Status *Q: Never Smoker Used Tobacco, but Quit: Yes Month Tobacco Last Used: 10 years Second Hand Smoke Exposure: No - Caffeine Use Caffeine Use: Reports: Soda Other Caffeine Use: Daily soda drinker - Alcohol Use Days Per Week of Alcohol Use: 0 Number of Drinks Per Day: 1 Total Drinks Per Week: 0 - Recreational Drug Use Recreational Drug Use: No - Living Situation & Occupation Living situation: Reports: Single, Other (Work camp) 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) ED ROS GENERAL - Review of Systems Review Of Systems: See Below Musculoskeletal: Reports: Neck Pain, Back Pain (Chronic) Neurological: Denies: Numbness, Tingling, Weakness ED EXAM, UPPER BACK/NECK PAIN - Physical Exam Exam: See Below Exam Limited By: No Limitations General Appearance: Alert, WD/WN, No Apparent Distress Eye Exam: Bilateral Eye: PERRL Ears Exam: Hearing Grossly Normal Nose Exam: Normal Inspection, Normal Mucousa, No Blood Throat/Mouth Exam: Normal Inspection, Normal Voice, No Airway Compromise Head Exam: Atraumatic, Normocephalic Neck Exam: Normal Inspection, Limited Range of Motion, Painful Range of Motion, Paraspinous Muscle Tender, Stiff Neck, Tenderness, Tender Lateral, Tender Midline. No: Muscle Spasm Nexus Criteria: Posterior, Midline Cervical Tenderness. No: Evidence of Intoxication, Altered Level of Consciousness, Focal Neurological Deficit, Painful Distraction Injuries Cardiovascular/Respiratory: Regular Rate, Rhythm, No M/R/G, Normal Peripheral Pulses, Normal Breath Sounds Extremities: Normal Inspection, Normal Range of Motion, Non-Tender, Normal Capillary Refill Neurologic: writer producer II-XII nml As Tested, No Motor/Sensory Deficits, Alert, Normal Mood/Affect, Oriented x 3 Psychiatric: Normal Affect, Normal Mood Skin Exam: Normal Color, Warm/Dry Lymphatic: No Adenopathy Course - Vital Signs Last Recorded V/S: Last Vital Signs Temp 98.4 F 10/28/17 14:52 Pulse 106 H 10/28/17 14:52 Resp 16 10/28/17 14:52 BP 153/100 H 10/28/17 14:52 Pulse Ox 98 10/28/17 14:52 - Orders/Labs/Meds Orders: Active Orders 24 hr Category Date Time Status Collar Applied [Spinal Immobilization] [RC] ASDIRECTED Care 10/28/17 15:25 Active Meds: Medications Discontinued Medications Generic Name Dose Route Start Last Admin Trade Name Freq PRN Reason Stop Dose Admin Ketorolac Tromethamine 60 mg 10/28/17 15:43 10/28/17 15:47 Toradol IM 10/28/17 15:44 60 mg ONETIME ONE Administration Ondansetron HCl 4 mg 10/28/17 15:43 10/28/17 15:47 Zofran Odt PO 10/28/17 15:44 4 mg ONETIME ONE Administration - Re-Assessments/Exams Free Text/Narrative Re-Assessment/Exam: CT of the cervical spine will be obtained. C-collar was placed. Ordered Toradol 60 mg IM for pain. In addition ordered Zofran 4 mg ODT for mild nausea. 10/28/17 16:08 CT cervical spine impression: Previous surgery as noted above. Minimal disc space narrowing above and below the surgical levels. Nothing acute is appreciated. No significant change seen from previous cervical spine x-ray exam. Patient continues to have limited range of motion secondary to pain. Will place the patient in [place] J collar and discharge him home with instructions as documented. Departure - Departure Time of Disposition: 16:10 Disposition: Home, Self-Care 01 Condition: Good Clinical Impression: Neck pain, Neck pain, acute - Discharge Information Instructions: Muscle Strain, [id number] Referrals: Julito Hatch PA-C [Primary Care Provider] - Forms: ED Department Discharge Additional Instructions: As discussed CT of the cervical spine was negative for acute bony abnormalities. Due to having pain to the cervical spine with limited range of motion will keep you in the [place] J collar and have you follow-up with your primary care provider this coming week for reevaluation. Take the collar off to only shower. Utilize Tylenol and ibuprofen in alternating fashion for pain. Apply ice to affected area as needed throughout the course today. Return to the ED as needed for any new or worsening symptoms. - My Orders Last 24 Hours: My Active Orders 10/28/17 15:25 Collar Applied [Spinal Immobilization] [RC] ASDIRECTED - Assessment/Plan Last 24 Hours: My Active Orders 10/28/17 15:25 Collar Applied [Spinal Immobilization] [RC] ASDIRECTED
[2017-10-28] MEDS ORDERED: Ondansetron 4 MG Tab.DIS PO ONE (15:43)
[2017-10-28] MEDS ORDERED: Ketorolac 60 MG/2 ML SDV IM ONE (15:43)
--- NOTE | 2017-10-28 16:04 | CT ---
CT cervical spine Technique: Multiple axial sections were obtained from above C1 inferiorly to the bottom of T1. Reconstructed sagittal and coronal images were reviewed. Comparison: Previous cervical spine CT exam exam of 06/07/16. Findings: Anterior plate and screws are identified at C5-C6 and C6-C7 with intervertebral disc fixation being seen. Minimal disc space narrowing is noted at C4-C5 and C7-T1. Vertebral body heights are maintained. Visualized mastoid sinuses and middle ear cavities are clear. Posterior skull base is intact. No fracture is identified. No bony central or bony neural foraminal stenosis is seen. No abnormal subluxation is seen on the reconstructed sagittal images. Impression: 1. Previous surgery as noted above. Minimal disc space narrowing above and below the surgical levels. 2. Nothing acute is appreciated. No significant change is seen from previous cervical spine exam. Diagnostic code #2
== END 2017-10-28 16:25 | disposition home or self-care (01) ==
LOC: JD.ED 14:33
DX: M54.2 Cervicalgia (principal); I10 Essential (primary) hypertension; Z88.5 Allergy status to narcotic agent; Z88.8 Allergy status to other drugs, medicaments and biological substances; Z79.899 Other long term (current) drug therapy
CPT/HCPCS: 72125; 96372; 99284; A9270; J1885; 99283

== ENCOUNTER 2017-10-31 07:43 | Emergency (ER) | payer OTHER, MEDICAID ==
[2017-10-31 07:57] VITALS: BP 156/107
--- NOTE | 2017-10-31 08:21 | EDM.PDOC ---
ED HPI GENERAL MEDICAL PROBLEM - General Chief Complaint: Neck Problem Stated Complaint: NECK AND SHOULDER PAIN Time Seen by Provider: 10/31/17 08:16 Source of Information: Reports: Patient History Limitations: Reports: No Limitations - History of Present Illness INITIAL COMMENTS - FREE TEXT/NARRATIVE: 31-year-old male presents to the ED for evaluation of injuries sustained in the workplace accident on 28 October. 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 Dates that a hose under high preasure broke loose or ruptured and struck him in the mid upper back causing i.e. hyper extention injury to his cervical spine in knocking him to the ground 3 days ago. Patient has been wearing a collar to support his neck but is finding it too uncomfortable and choking. He has been using Tylenol primarily for pain relief and not getting much relief particularly the last day or so as the pain has worsened since the time of injury. Is having pain along his right mid back below the scapula patient has had previous cervical spine fusion at C5-C6 C6-C7 level. CT of his cervical spine had been performed the time of injury and I did review this. He did not show any loosening of the hardware or fractures. Patient has been instructed not to use much in the way of NSAIDs as he is on high-dose prednisone as part of his chemotherapy program for his lung disease(vasculitis). Onset: Sudden Onset Date: 10/28/17 Duration: Day(s): Location: Reports: Neck, Back (Right mid back.) Quality: Reports: Ache, Stabbing, Throbbing Severity: Moderate Improves with: Reports: None (Current Tylenol was not helping much.) Worsens with: Reports: Other (Riding in a truck with vibration an up-and-down movement.), Movement Context: Reports: Trauma (Struck by the end of a large bolus that was under good deal of pressure.) Associated Symptoms: Reports: Nausea/Vomiting Treatments BARTENDER HELPER: Reports: Acetaminophen Neck Pain Score (Numeric/FACES): 9 - Related Data Allergies Allergy/AdvReac Type Severity Reaction Status Date / Time methocarbamol [From Robaxin] Allergy Itching Verified 10/31/17 07:48 tramadol AdvReac Sweating Verified 10/31/17 07:48 Home Meds: Home Meds Cyclophosphamide 50 mg PO DAILY 04/25/16 [History] Pantoprazole Sodium [Protonix] 40 mg PO BID 04/25/16 [History] predniSONE [Prednisone] 20 mg PO DAILY 04/25/16 [History] Lisinopril [Prinivil] 40 mg PO DAILY #40 tablet 03/30/17 [Rx] Metoprolol Tartrate 25 mg PO BID 10/09/17 [History] Albuterol [IJD: Ventolin HFA] 2 puff INH QID PRN 10/28/17 [History] oxyCODONE HCl/Acetaminophen [Percocet 5-325 mg Tablet] 1 - 2 each PO Q4H PRN # 20 tablet 10/31/17 [Rx] Past Medical History HEENT History: Reports: Impaired Vision Other HEENT History: wears eyeglasses Cardiovascular History: Reports: Hypertension Respiratory History: Reports: Intubation, Previous, Pneumothorax Other Respiratory History: ANCA Vasculitis Gastrointestinal History: Reports: GERD Genitourinary History: Reports: Renal Calculus, Renal Disease Musculoskeletal History: Reports: Back Pain, Chronic, Neck Pain, Chronic Neurological History: Reports: Headaches, Chronic Endocrine/Metabolic History: Reports: Obesity/BMI 30+ Immunologic History: Reports: Other (See Below) Other Immunologic History: vasculitis, "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." - Past Surgical History Respiratory Surgical History: Reports: Other (See Below) GI Surgical History: Reports: Appendectomy Neurological Surgical History: Reports: C-Spine, Lumbar Spine Social & Family History - Family History Family Medical History: Noncontributory Cardiac: Reports: [place] Neurological: Reports: Other (See Below) Other Neurological Family History: Mother had a crani - Tobacco Use Smoking Status *Q: Never Smoker Used Tobacco, but Quit: Yes Month Tobacco Last Used: 10 years Second Hand Smoke Exposure: No - Caffeine Use Caffeine Use: Reports: Soda Other Caffeine Use: Daily soda drinker - Alcohol Use Days Per Week of Alcohol Use: 0 Number of Drinks Per Day: 1 Total Drinks Per Week: 0 - Recreational Drug Use Recreational Drug Use: No - Living Situation & Occupation Living situation: Reports: Single, Other (Work camp) 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 Denies: Fever, Chills, Weight Loss HEENT: Reports: No Symptoms Respiratory: Reports: No Symptoms. Denies: Shortness of Breath Cardiovascular: Reports: No Symptoms Endocrine: Reports: Fatigue GI/Abdominal: Reports: Nausea : Reports: No Symptoms Musculoskeletal: Reports: Neck Pain, Back Pain (Right upper mid back pain inferior to the scapula as well as adjacent to the scapula.) Skin: Reports: No Symptoms Neurological: Reports: No Symptoms, Other Psychiatric: Reports: No Symptoms Hematologic/Lymphatic: Reports: No Symptoms Immunologic: Reports: No Symptoms ED EXAM, UPPER BACK/NECK PAIN - Physical Exam Exam: See Below (No radicular pain into either shoulder or upper extremity) Exam Limited By: No Limitations General Appearance: Alert, WD/WN, No Apparent Distress Eye Exam: Bilateral Eye: Normal Inspection Neck Exam: Paraspinous Muscle Tender (Left side), Other (Tenderness particularly showed the left paraspinal muscles with paraspinal muscle tenderness and spasm evident.) Nexus Criteria: Posterior, Midline Cervical Tenderness. No: Evidence of Intoxication, Altered Level of Consciousness, Focal Neurological Deficit, Painful Distraction Injuries Cardiovascular/Respiratory: Regular Rate, Rhythm Back Exam: Paraspinal Tenderness (Moderate on the right side. I didn't appreciates rib head subluxation about T9-T10 and T6 T7 level on the right side. ). No: CVA Tenderness (L), CVA Tenderness (R) Extremities: Normal Inspection, Normal Range of Motion, Non-Tender, No Pedal Edema, Normal Capillary Refill Course - Vital Signs Last Recorded V/S: Last Vital Signs Temp 36.3 C 10/31/17 07:50 Pulse 86 10/31/17 07:50 Resp 18 10/31/17 07:50 BP 156/107 H 10/31/17 07:50 Pulse Ox 99 10/31/17 07:50 - Radiology Interpretation Free Text/Narrative:: 31-year-old male attends the ED after being injured in the workplace 3 days ago when he was struck in the mid upper back with a larger hole was that was under good deal of pressure. 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 States something broke and he felt sudden pain in his back when he was struck by the holes which caused a hyperextension injury to his neck. Knocked him to the ground and knocked the wind out of him. Subsequent he's developed increasing cervical neck pain and was seen through the ED on the ninth the day of injury. He said previous spinal fusion of the cervical spine and therefore CT was carried out to make sure there was no bony injuries and none were found. In regards to his right upper back he is expressing paraspinal muscle spasm and I can palpate rib head subluxation at 910 and 67 level on the right side. Nothing on the left side. He is finding current pain medication --Tylenol inadequate to control his pain and he cannot take NSAIDs due to current vasculitis and use of prednisone. I will therefore place him on Percocet tablets 5/325 one or 2 every 4-6 hours needed for pain relief. 20 tablets were provided. Advised him to follow-up with chiropractor today if able to have rib heads adjusted in his back but not to have cervical neck manipulation. He has an appointment with Dr. Iqbal later this week as well as Julito Hatch. Departure - Departure Time of Disposition: 08:16 Disposition: Home, Self-Care 01 Condition: Fair Clinical Impression: Strain of muscle and tendon of back wall of thorax, initial encounter Sprain of cervical neck Qualifiers: Encounter type: initial encounter Qualified Code(s): S13.9XXA - Sprain of joints and ligaments of unspecified parts of neck, initial encounter - Discharge Information Prescriptions: oxyCODONE HCl/Acetaminophen [Percocet 5-325 mg Tablet] 1 - 2 each PO Q4H PRN # 20 tablet PRN Reason: pain relief. Instructions: Cervical Sprain, [id number] Referrals: Julito Hatch PA-C [Primary Care Provider] - Forms: ED Department Discharge Additional Instructions: Evaluation the emergency room today in regards to increasing pain in the cervical spine area as well as right mid and lower back area post being struck by a hole was under high pressure. This was a work-related injury. I did review the CT of the cervical spine was performed when you were seen through the ED shows that the fusion is still in good alignment and no hardware malposition is evident. Pain in the mid right back is due to rib head subluxation which I can identify 2 separate areas around thoracic 10 and 6 levels. Suggest follow-up with Brien Perez chiropractor to have those rib heads adjusted. You could call his office at [phone] to arrange an appointment. You should not have adjustment on your cervical spine due to previous fusion. Suggest changing pain medication to Percocet 5/3/25 milligram tabs one or 2 every 4-6 hours as needed for pain relief. May also want to start MiraLAX powder 17 g or 1 scoop daily to prevent constipation while on the stronger pain medication. Hopefully things in the neck and upper back will settle down over the next 7-10 days.
== END 2017-10-31 08:44 | disposition home or self-care (01) ==
LOC: JD.ED 07:43
DX: S29.012A Strain of muscle and tendon of back wall of thorax, initial encounter (principal); S13.9XXA Sprain of joints and ligaments of unspecified parts of neck, initial encounter; I10 Essential (primary) hypertension; Z88.8 Allergy status to other drugs, medicaments and biological substances; Z88.5 Allergy status to narcotic agent; Z79.899 Other long term (current) drug therapy; W22.8XXA Striking against or struck by other objects, initial encounter; Z87.891 Personal history of nicotine dependence
CPT/HCPCS: 99283

== ENCOUNTER 2017-11-14 11:47 | Emergency (ER) | payer BC, MEDICAID, OTHER ==
[2017-11-14 12:00] VITALS: BP 159/89
[2017-11-14] MEDS ORDERED: Metoclopramide 10 MG/2 ML SDV IVPUSH ONE (12:10)
[2017-11-14] MEDS ORDERED: HYDROmorphone 1 MG/ML Syringe IVPUSH ONE (12:10)
--- NOTE | 2017-11-14 12:10 | EDM.PDOC ---
ED HPI GENERAL MEDICAL PROBLEM - General Chief Complaint: Back Pain or Injury Stated Complaint: VOMITING/LOW BACK PAIN Time Seen by Provider: 11/14/17 12:02 Source of Information: Reports: Patient History Limitations: Reports: No Limitations - History of Present Illness INITIAL COMMENTS - FREE TEXT/NARRATIVE: 31-year-old male presents to the ED with reported intermittent nausea and vomiting since yesterday. 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 He has chronic back pain which is worse some days than others. Last [place] in semi-identified a rib head out of place and set him to a chiropractor and he reports good benefit from this. Back pain is been acting up over lower down the last few days and this he believes helps sets off the nausea and the vomiting. He doesn't believe he was supposed any bad food. States his bowels are working normally. No diarrhea. This morning abruptly around 0400 hrs. with the need to vomit. He did take a Zofran sublingually about 5:00 and since it is been able to keep down small quantities of Sprite and some crackers. Mather hot and chilled yesterday. Denies any hematemesis. Denies any increased cough or sputum production. Last use of any narcotic pain medication was about 4-5 days ago. Onset: Sudden Onset Date: 11/13/17 Onset Time: 16:00 Duration: Hour(s): Location: Reports: Abdomen (Abrupt onset of nausea and vomiting yesterday p.m. and again about 4:00 this morning. Seems to be associate with increased low back pain.) Quality: Reports: Other (Moderate nausea present.) Severity: Moderate (Moderate back pain at present.) Improves with: Reports: None Worsens with: Reports: Movement Context: Denies: Activity, Exercise, Lifting, Sick Contact, Trauma, Other Associated Symptoms: Reports: Fever/Chills, Loss of Appetite, Malaise, Nausea/ Vomiting (Intermittently since yesterday). Denies: Confusion, Chest Pain, cough w sputum, Diaphoresis (Yesterday.), Headaches, Rash (.), Seizure, Shortness of Breath, Syncope Treatments CIRCUIT COURT CLERK: Reports: Other (see below) Lower Back Pain Score (Numeric/FACES): 8 Lower Abdomen Pain Score (Numeric/FACES): 8 - Related Data Allergies Allergy/AdvReac Type Severity Reaction Status Date / Time methocarbamol [From Robaxin] Allergy Itching Verified 11/14/17 12:00 tramadol AdvReac Sweating Verified 11/14/17 12:00 Home Meds: Home Meds Cyclophosphamide 50 mg PO DAILY 04/25/16 [History] Pantoprazole Sodium [Protonix] 40 mg PO BID 04/25/16 [History] predniSONE [Prednisone] 20 mg PO DAILY 04/25/16 [History] Lisinopril [Prinivil] 40 mg PO DAILY #40 tablet 03/30/17 [Rx] Metoprolol Tartrate 25 mg PO BID 10/09/17 [History] Albuterol [IJD: Ventolin HFA] 2 puff INH QID PRN 10/28/17 [History] oxyCODONE HCl/Acetaminophen [Percocet 5-325 mg Tablet] 1 - 2 each PO Q4H PRN # 20 tablet 10/31/17 [Rx] Cyclobenzaprine [Flexeril] 5 mg PO ASDIRECTED PRN 11/14/17 [History] Ondansetron [Zofran ODT] 4 mg PO Q6H #10 tab.dis 11/14/17 [Rx] oxyCODONE HCl/Acetaminophen [Percocet 5-325 mg Tablet] 1 - 2 each PO Q4H PRN # 20 tablet 11/14/17 [Rx] Past Medical History HEENT History: Reports: Impaired Vision Other HEENT History: wears eyeglasses Cardiovascular History: Reports: Hypertension Respiratory History: Reports: Intubation, Previous, Pneumothorax Other Respiratory History: ANCA Vasculitis Gastrointestinal History: Reports: GERD Genitourinary History: Reports: Renal Calculus, Renal Disease Musculoskeletal History: Reports: Back Pain, Chronic, Neck Pain, Chronic Neurological History: Reports: Headaches, Chronic Endocrine/Metabolic History: Reports: Obesity/BMI 30+ Immunologic History: Reports: Other (See Below) Other Immunologic History: vasculitis, "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." - Past Surgical History Respiratory Surgical History: Reports: Other (See Below) GI Surgical History: Reports: Appendectomy Neurological Surgical History: Reports: C-Spine, Lumbar Spine Social & Family History - Family History Family Medical History: Noncontributory Cardiac: Reports: [place] Neurological: Reports: Other (See Below) Other Neurological Family History: Mother had a crani - Tobacco Use Smoking Status *Q: Never Smoker Used Tobacco, but Quit: Yes Month Tobacco Last Used: 10 years Second Hand Smoke Exposure: No - Caffeine Use Caffeine Use: Reports: Soda Other Caffeine Use: Daily soda drinker - Alcohol Use Days Per Week of Alcohol Use: 0 Number of Drinks Per Day: 1 Total Drinks Per Week: 0 - Recreational Drug Use Recreational Drug Use: No - Living Situation & Occupation Living situation: Reports: Single, Other (Work camp) 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 Denies: Wheezing (Mild chronically due to vasculitis of the lungs.), Pleuritic Chest Pain, Cough, Sputum, Hemoptysis Cardiovascular: Reports: Blood Pressure Problem (-Mild hypertension), Dyspnea on Exertion (Chronically), Lightheadedness. Denies: Chest Pain, Claudication, Edema (Today), Orthopnea, Palpitations Endocrine: Reports: Fatigue GI/Abdominal: Reports: Abdominal Pain, Nausea (Abdominal discomfort in the upper abdomen.), Vomiting (See history of present illness). Denies: Constipation, Diarrhea, Distension : Reports: Frequency Musculoskeletal: Reports: Back Pain (Chronic back pain worse the last few days.) Skin: Reports: Diaphoresis (Around the time he vomits.) Neurological: Denies: Confusion, Dizziness, Headache, Paresthesia, Pre-Existing Deficit, Seizure, Syncope, Tremors, Trouble Speaking, Difficulty Walking, Weakness Psychiatric: Reports: No Symptoms Hematologic/Lymphatic: Reports: No Symptoms Immunologic: Reports: No Symptoms ED EXAM, GI/ABD - Physical Exam Exam: See Below Exam Limited By: No Limitations General Appearance: Alert, WD/WN, No Apparent Distress Eyes: Bilateral: Normal Appearance (No jaundice.) Throat/Mouth: Normal Inspection, Normal Oropharynx, Other Head: Atraumatic (Tongue is mildly dry and coated), Normocephalic Neck: Normal Inspection, Supple, Non-Tender. No: Full Range of Motion, Lymphadenopathy (R) Respiratory/Chest: No Respiratory Distress, Lungs Clear, Normal Breath Sounds, No Accessory Muscle Use Cardiovascular: Normal Peripheral Pulses, Regular Rate, Rhythm, No Edema, No Gallop, No Murmur GI/Abdominal Exam: Normal Bowel Sounds, Soft, Non-Tender, No Organomegaly Back Exam: Decreased Range of Motion, Vertebral Tenderness (T 10 to lumbar 3 vertebra bilaterally.). No: Full Range of Motion, CVA Tenderness (L), CVA Tenderness (R) Extremities: Normal Inspection ( Primarily over the facet joints), Normal Range of Motion, Non-Tender, No Pedal Edema Neurological: Alert, Oriented, CN II-XII Intact, Normal Cognition. No: Normal Gait Course - Vital Signs Last Recorded V/S: Last Vital Signs Temp 36.6 C 11/14/17 11:59 Pulse 100 11/14/17 11:59 Resp 16 11/14/17 11:59 BP 159/89 H 11/14/17 11:59 Pulse Ox 97 11/14/17 11:59 - Orders/Labs/Meds Orders: Active Orders 24 hr Category Date Time Status Dextrose 5%-0.9% NaCl [Dextrose 5%-Normal Saline] 1,000 Med 11/14/17 12:15 Active ml IV ASDIRECTED Medication Orders Dextrose/Sodium Chloride (Dextrose 5%-Normal Saline) 1,000 mls @ 999 mls/hr IV ASDIRECTED TRISTEN Last Admin: 11/14/17 12:13 Dose: 999 mls/hr Labs: Laboratory Tests 11/14/17 11/14/17 11/14/17 Range/Units 12:12 12:12 12:12 WBC 10.85 H (4.23-9.07) K/mm3 RBC 4.74 (4.63-6.08) M/mm3 Hgb 13.7 (13.7-17.5) gm/L Hct 43.8 (40.1-51.0) % MCV 92.4 H (79.0-92.2) fl MCH 28.9 (25.7-32.2) pg MCHC 31.3 L (32.2-35.5) g/dl RDW Std Deviation 51.3 H (35.1-43.9) fL Plt Count 240 (163-337) K/mm3 MPV 10.3 (9.4-12.3) fl Neutrophils % (Manual) 91 H (40-60) % Band Neutrophils % 2 (0-10) % Lymphocytes % (Manual) 5 L (20-40) % Atypical Lymphs % 0 % Monocytes % (Manual) 0 L (2-10) % Eosinophils % (Manual) 1 (0.8-7.0) % Basophils % (Manual) 1 (0.2-1.2) Differential Comment See note Platelet Estimate Adequate RBC Morph Comment Normal ESR 11 (0-15) mm/hr Sodium 141 (136-145) mEq/L Potassium 4.5 (3.5-5.1) mEq/L Chloride 108 H (98-107) mEq/L Carbon Dioxide 25 (21-32) mEq/L Anion Gap 12.5 (5-15) BUN 15 (7-18) mg/dL Creatinine 1.2 (0.7-1.3) mg/dL Est Cr Clr Drug Dosing 89.19 mL/min Estimated GFR (MDRD) > 60 (>60) mL/min BUN/Creatinine Ratio 12.5 L (14-18) Glucose 98 (74-106) mg/dL Calcium 9.3 (8.5-10.1) mg/dL Total Bilirubin 0.8 (0.2-1.0) mg/dL AST 37 (15-37) U/L ALT 34 (16-63) U/L Alkaline Phosphatase 83 (46-116) U/L C-Reactive Protein < 0.2 (<1.0) mg/dL Total Protein 7.4 (6.4-8.2) g/dl Albumin 4.2 (3.4-5.0) g/dl Globulin 3.2 gm/dL Albumin/Globulin Ratio 1.3 (1-2) Lipase 119 (73-393) U/L Meds: Medications Generic Name Dose Route Start Last Admin Trade Name Freq PRN Reason Stop Dose Admin Dextrose/Sodium Chloride 1,000 mls @ 999 mls/hr 11/14/17 12:15 11/14/17 12:13 Dextrose 5%-Normal Saline IV 999 mls/hr ASDIRECTED TRISTEN Administration Discontinued Medications Generic Name Dose Route Start Last Admin Trade Name Freq PRN Reason Stop Dose Admin Hydromorphone HCl 1 mg 11/14/17 12:10 11/14/17 12:17 Dilaudid IVPUSH 11/14/17 12:11 1 mg ONETIME ONE Administration Metoclopramide HCl 10 mg 11/14/17 12:10 11/14/17 12:16 Reglan IVPUSH 11/14/17 12:11 10 mg ONETIME ONE Administration - Radiology Interpretation Free Text/Narrative:: 31-year-old male presents the ED with a history of intermittent nausea and vomiting starting yesterday afternoon. Associated onset of fever and chills. Has taken Zofran 4 mg sublingually twice in the last 24 hours with relief temporarily at least. Back pain is much worse and has been the last few days. Reports that this seems to make him nauseated and vomit. Last used of any narcotics as 4-5 days ago. Possibility of acute withdrawal exists. 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 He has plans to travel back home to see all of his specialist within the next few days. I believe this is in [place]. Examination reveals no fever at this time. Chest is clear abdomen shows active bowel sounds soft palpation without organomegaly or masses noted. No peritoneal signs. Plan IV normal saline at open to provide rehydration. Reglan 10 mg IV to arrest vomiting. Dilaudid 1 mg IV for pain relief. Routine labs including a serum lipase to be performed. Sedimentation rate as well. - Re-Assessments/Exams Free Text/Narrative Re-Assessment/Exam: 11/14/17 13:24Labs reveal a normal white count at 10.85 with a left shift of 91 % neutrophils and 2% bands. Hemoglobin is 13.7 hematocrit is 43.8. Sedimentation rate today is 11. Sodium 141 potassium 4.5. Chloride 108 bicarbonate is 25. Creatinine is 1.2. Chemistry otherwise is completely normal including a lipase 119 and liver function normal. Patient is completed liter of IV fluids and is feeling improved. Still feels a bit of stomach upset but not any nausea. We'll give him a bit of crackers and some Gatorade make sure that he can keep them down before discharging him. Departure - Departure Time of Disposition: 13:54 Disposition: Home, Self-Care 01 Condition: Fair Clinical Impression: Steroid dependence, Viral gastritis Vomiting Qualifiers: Vomiting type: bilious vomiting Nausea presence: with nausea Qualified Code(s) : R11.14 - Bilious vomiting Chronic back pain Qualifiers: Back pain location: low back pain Back pain laterality: right Sciatica presence : without sciatica Qualified Code(s): M54.5 - Low back pain - Discharge Information Prescriptions: Ondansetron [Zofran ODT] 4 mg PO Q6H #10 tab.dis oxyCODONE HCl/Acetaminophen [Percocet 5-325 mg Tablet] 1 - 2 each PO Q4H PRN # 20 tablet PRN Reason: pain relief. Instructions: Nausea, Adult, Back Pain, Adult Referrals: Julito Hatch PA-C [Primary Care Provider] - Forms: ED Department Discharge, ED Return to Work/School Form Additional Instructions: Evaluation in the emergency room today in regards to sudden onset of nausea and vomiting starting yesterday and then again this morning. This suggests you've contracted a viral stomach flu that has been going around. No diarrhea has occurred. As you indicated vomiting seems to occur when your back pain is worse and therefore it is playing a role in your illness as well. You're treated in the ED with a liter of IV fluids to replenish her volume. No major abnormalities were detected in your lab work. Suggest clear fluids such as Gatorade or Powerade today to maintain hydration ideally 5-6 ounces per hour. When hungry crackers then toast then advance to soup such as turkey rice turkey noodle etc. May use Zofran 4 mg under the tongue every 4-6 hours needed to relieve nausea vomiting. Refilled Percocet 5/3/25 milligram tablets for pain relief that she can use at bedtime when not working to help ease up back pain. Follow-up with personal physician if any further problems occur. - My Orders Last 24 Hours: My Active Orders 11/14/17 12:15 Dextrose 5%-0.9% NaCl [Dextrose 5%-Normal Saline] 1,000 ml IV ASDIRECTED - Assessment/Plan Last 24 Hours: My Active Orders 11/14/17 12:15 Dextrose 5%-0.9% NaCl [Dextrose 5%-Normal Saline] 1,000 ml IV ASDIRECTED
[2017-11-14] MEDS ORDERED: Dextrose 5%-0.9% NaCl 1,000 ML IV SCH (12:15)
== END 2017-11-14 14:21 | disposition home or self-care (01) ==
LOC: JD.ED 11:47
DX: A08.4 Viral intestinal infection, unspecified (principal); M54.5 Low back pain; F19.20 Other psychoactive substance dependence, uncomplicated; I10 Essential (primary) hypertension; Z88.5 Allergy status to narcotic agent; Z88.8 Allergy status to other drugs, medicaments and biological substances; Z79.899 Other long term (current) drug therapy
CPT/HCPCS: 36415; 80053; 83690; 85025; 85652; 86140; 96361; 96374; 96375; 99284; J1170; J2765; J7042

== ENCOUNTER 2017-12-31 18:58 | Emergency (ER) | payer MEDICAID, SELFPAY ==
[2017-12-31 19:13] VITALS: BP 156/108
--- NOTE | 2017-12-31 19:32 | EDM.PDOC ---
ED HPI GENERAL MEDICAL PROBLEM - General Chief Complaint: Back Pain or Injury Stated Complaint: BACKPAIN RECENT CORTIZONE INJECTIONS Time Seen by Provider: 12/31/17 19:15 Source of Information: Reports: Patient History Limitations: Reports: No Limitations - History of Present Illness INITIAL COMMENTS - FREE TEXT/NARRATIVE: Paulo is a 32yo male, presents ambulatory with acute on chronic low back pain. He suffers with chronic low back pain, the past 3-5 days or so pain has been much worse and "feel like I got hit by a gil truck in my low back". He is using biofreeze without relief. States he is allergic to tramadol and takes 40mg of prednisone daily for vasculitis. Also tells me he is getting rituxan once monthly injections in [place] (home for him) for his vasculitis and autoimmune disease. He has rec'd 3 steroid injections in his back in [place], last one being 3 weeks ago. Pain however is worse the last few days as noted above. He does have radiculopathy of the right leg "to my toes". No bowel or bladder dysfunction or saddle anesthesia. Denies injury, trauma or falls recently. Onset: Gradual Duration: Week(s): (chronic back pain, worsening over the past 3-4 days ) Location: Reports: Back Quality: Reports: Ache, Sharp (with certain movements), Throbbing Severity: Severe Improves with: Reports: None Worsens with: Reports: Movement Associated Symptoms: Reports: No Other Symptoms, Other (no bowel or bladder dysfunction since worsening of back pain) Back Pain Score (Numeric/FACES): 9 - Related Data Allergies Allergy/AdvReac Type Severity Reaction Status Date / Time methocarbamol [From Robaxin] Allergy Itching Verified 12/31/17 19:15 tramadol AdvReac Sweating Verified 12/31/17 19:15 Home Meds: Home Meds Cyclophosphamide 50 mg PO DAILY 04/25/16 [History] Pantoprazole Sodium [Protonix] 40 mg PO BID 04/25/16 [History] predniSONE [Prednisone] 20 mg PO DAILY 04/25/16 [History] Lisinopril [Prinivil] 40 mg PO DAILY #40 tablet 03/30/17 [Rx] Metoprolol Tartrate 25 mg PO BID 10/09/17 [History] Albuterol [IJD: Ventolin HFA] 2 puff INH QID PRN 10/28/17 [History] oxyCODONE HCl/Acetaminophen [Percocet 5-325 mg Tablet] 1 - 2 each PO Q4H PRN # 20 tablet 10/31/17 [Rx] Cyclobenzaprine [Flexeril] 5 mg PO ASDIRECTED PRN 11/14/17 [History] Ondansetron [Zofran ODT] 4 mg PO Q6H #10 tab.dis 11/14/17 [Rx] oxyCODONE HCl/Acetaminophen [Percocet 5-325 mg Tablet] 1 - 2 each PO Q4H PRN # 20 tablet 11/14/17 [Rx] Past Medical History HEENT History: Reports: Impaired Vision Other HEENT History: wears eyeglasses Cardiovascular History: Reports: Hypertension Respiratory History: Reports: Intubation, Previous, Pneumothorax Other Respiratory History: ANCA Vasculitis Gastrointestinal History: Reports: GERD Genitourinary History: Reports: Renal Calculus, Renal Disease Musculoskeletal History: Reports: Back Pain, Chronic, Neck Pain, Chronic Neurological History: Reports: Headaches, Chronic Endocrine/Metabolic History: Reports: Obesity/BMI 30+ Immunologic History: Reports: Other (See Below) Other Immunologic History: vasculitis, "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." - Past Surgical History Respiratory Surgical History: Reports: Other (See Below) GI Surgical History: Reports: Appendectomy Neurological Surgical History: Reports: C-Spine, Lumbar Spine Social & Family History - Family History Family Medical History: Noncontributory Cardiac: Reports: [place] Neurological: Reports: Other (See Below) Other Neurological Family History: Mother had a crani - Tobacco Use Smoking Status *Q: Never Smoker Used Tobacco, but Quit: Yes Month Tobacco Last Used: 10 years Second Hand Smoke Exposure: No - Caffeine Use Caffeine Use: Reports: Soda Other Caffeine Use: Daily soda drinker - Alcohol Use Days Per Week of Alcohol Use: 0 Number of Drinks Per Day: 1 Total Drinks Per Week: 0 - Recreational Drug Use Recreational Drug Use: No - Living Situation & Occupation Living situation: Reports: Single, Other (Work camp) 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 Denies: Nausea : Reports: No Symptoms. Denies: Hematuria, Urgency, Urinary Retention Musculoskeletal: Reports: Back Pain (acute on chronic) Neurological: Reports: No Symptoms, Other (rt leg "burning going down into my foot"--comes and goes, worsen the last few days). Denies: Headache, Numbness, Tingling Psychiatric: Reports: No Symptoms ED EXAM,LOWER BACK PAIN/INJURY - Physical Exam Exam: See Below Exam Limited By: No Limitations General Appearance: Alert, WD/WN, No Apparent Distress Eye Exam: Bilateral Eye: EOMI, PERRL Ears: Normal External Exam, Hearing Grossly Normal Nose: Normal Inspection Throat/Mouth: Normal Inspection, Normal Voice Head: Atraumatic, Normocephalic Neck: Normal Inspection Respiratory/Chest: No Respiratory Distress, Lungs Clear, Normal Breath Sounds Cardiovascular: Regular Rate, Rhythm, No Murmur GI/Abdominal: Normal Bowel Sounds, Soft (Male) Exam: Deferred Rectal (Males) Exam: Deferred Back Exam: Normal Inspection Extremities: Normal Inspection Neurological: Alert, Normal Mood/Affect, No Motor/Sensory Deficits (strength to lower ext is 5/5 and = bilat), Oriented x 3 DTR - Lower Extremities: 2+: Knee (R), Knee (L) Psychiatric: Normal Affect, Normal Mood Skin Exam: Warm, Dry, Intact Course - Vital Signs Last Recorded V/S: Last Vital Signs Temp 98.8 F 12/31/17 19:08 Pulse 110 H 12/31/17 19:08 Resp 18 12/31/17 19:08 BP 156/108 H 12/31/17 19:08 Pulse Ox 100 12/31/17 19:08 - Orders/Labs/Meds Meds: Medications Discontinued Medications Generic Name Dose Route Start Last Admin Trade Name Alexandreq PRN Reason Stop Dose Admin Hydrocodone Bitart/Acetaminophen 1 tab 12/31/17 19:42 Ranger 325-5 Mg PO 12/31/17 19:43 ONETIME ONE - Re-Assessments/Exams Free Text/Narrative Re-Assessment/Exam: 12/31/17 19:49 Long discussion re: acute on chronic back pain, non-medicinal options. Will try zanaflex for muscle relaxant in place of flexeril. He cannot take NSAIDS due to vasculitis, is allergic to tramadol. I will give him #15 Ranger 5/325 until he can get into see his PCP, Julito Hatch PA-C for local follow up and discuss further POC re: chronic back pain. He has had no trauma or indications for xrays of the back today. He is discharged home today; caution with driving while taking narcotic medications and muscle relaxants. Departure - Departure Time of Disposition: 19:43 Disposition: Home, Self-Care 01 Condition: Good Clinical Impression: Back pain, chronic Qualifiers: Back pain location: low back pain Back pain laterality: right Sciatica presence : with sciatica Sciatica laterality: sciatica of right side Qualified Code(s): M54.41 - Lumbago with sciatica, right side - Discharge Information Instructions: Muscle Strain, [id number], Back Pain, Adult, [id number], Pain Medicine Instructions, [id number] Referrals: Julito Hatch PA-C [Primary Care Provider] - Forms: ED Department Discharge Additional Instructions: Try Zanaflex (muscle relaxant) in place of flexeril-- do not take together Heat/ice Cont biofreeze Pain medication if needed Follow up with Primary Care Provider within 1 week for back pain Return to ER if needed
[2017-12-31] MEDS ORDERED: Acetaminophen/HYDROcodone 325-5 MG Tab PO ONE (19:42)
== END 2017-12-31 19:50 | disposition home or self-care (01) ==
LOC: JD.ED 18:58
DX: G89.29 Other chronic pain (principal); M54.41 Lumbago with sciatica, right side; I10 Essential (primary) hypertension; Z88.5 Allergy status to narcotic agent; Z79.899 Other long term (current) drug therapy
CPT/HCPCS: 99283; A9270

== ENCOUNTER 2018-01-07 11:19 | Emergency (ER) | payer BC, MEDICAID, OTHER ==
[2018-01-07 11:31] VITALS: BP 164/109
[2018-01-07] MEDS ORDERED: Sodium Chloride 0.9% 10 ML Syringe FLUSH PRN (11:49)
[2018-01-07] MEDS ORDERED: HYDROmorphone 0.5 MG/0.5 ML SYRINGE IVPUSH ONE (11:50)
[2018-01-07] MEDS ORDERED: Pantoprazole 40 MG Vial IVPUSH ONE (11:50)
[2018-01-07] MEDS ORDERED: Sodium Chloride 0.9% 1,000 ML IV ONE (11:50)
[2018-01-07] MEDS ORDERED: Ondansetron 4 MG/2 ML SDV IVPUSH ONE (11:51)
--- NOTE | 2018-01-07 11:58 | EDM.PDOC ---
ED HPI GENERAL MEDICAL PROBLEM - General Chief Complaint: Chest Pain Stated Complaint: SOB AND CHEST PAIN Time Seen by Provider: 01/07/18 11:36 Source of Information: Reports: Patient History Limitations: Reports: No Limitations - History of Present Illness INITIAL COMMENTS - FREE TEXT/NARRATIVE: Patient is a 32-year-old male with a history of ANCA positive vasculitis presents ED complaining of generalized weakness, fatigue, right-sided chest pain , nausea with vomiting up a scant amount of blood. States the chest discomfort is on the right side of his chest middle portion that radiates along the right lateral chest wall into his back. States as of this morning developed some mild blurred vision which increasing shortness of breath with all the above symptoms. He is receiving IV chemotherapy agent every month to treat the wagener vasculitis.. This past month he was hospitalized for vomiting blood and also coughing of blood. He was in ICU for multiple days in [place]. Underwent plasmapheresis 7 different times. States symptoms currently experiencing are similar to the symptoms prior with onset requiring admission to the hospital at that time. Currently patient's taking prednisone 40 mg every day along with Bactrim, Protonix, lisinopril, metoprolol, and chemo agent of unknown name. Chest Pain Score (Numeric/FACES): 8 - Related Data Allergies Allergy/AdvReac Type Severity Reaction Status Date / Time methocarbamol [From Robaxin] Allergy Itching Verified 01/07/18 11:31 tramadol AdvReac Sweating Verified 01/07/18 11:31 Home Meds: Home Meds Pantoprazole Sodium [Protonix] 40 mg PO BID 04/25/16 [History] predniSONE [Prednisone] 20 mg PO DAILY 04/25/16 [History] Lisinopril [Prinivil] 40 mg PO DAILY #40 tablet 03/30/17 [Rx] Metoprolol Tartrate 25 mg PO BID 10/09/17 [History] Cyclobenzaprine [Flexeril] 5 mg PO ASDIRECTED PRN 11/14/17 [History] Ondansetron [Zofran ODT] 4 mg PO Q6H PRN #12 tab.dis 01/07/18 [Rx] Sucralfate [Carafate] 1 gm PO QID #24 tablet 01/07/18 [Rx] Past Medical History HEENT History: Reports: Impaired Vision Other HEENT History: wears eyeglasses Cardiovascular History: Reports: Hypertension Respiratory History: Reports: Intubation, Previous, Pneumothorax, Other (See Below) Other Respiratory History: ANCA Vasculitis, wagners disease Gastrointestinal History: Reports: GERD Genitourinary History: Reports: Renal Calculus, Renal Disease Musculoskeletal History: Reports: Back Pain, Chronic, Neck Pain, Chronic Neurological History: Reports: Headaches, Chronic Endocrine/Metabolic History: Reports: Obesity/BMI 30+ Immunologic History: Reports: Other (See Below) Other Immunologic History: vasculitis, "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." - Past Surgical History Respiratory Surgical History: Reports: Other (See Below) GI Surgical History: Reports: Appendectomy Neurological Surgical History: Reports: C-Spine, Lumbar Spine Social & Family History - Family History Family Medical History: Noncontributory Cardiac: Reports: [place] Neurological: Reports: Other (See Below) Other Neurological Family History: Mother had a crani - Tobacco Use Smoking Status *Q: Never Smoker Used Tobacco, but Quit: Yes Month Tobacco Last Used: 10 years Second Hand Smoke Exposure: No - Caffeine Use Caffeine Use: Reports: Soda Other Caffeine Use: Daily soda drinker - Alcohol Use Days Per Week of Alcohol Use: 0 Number of Drinks Per Day: 1 Total Drinks Per Week: 0 - Recreational Drug Use Recreational Drug Use: No - Living Situation & Occupation Living situation: Reports: Single, Other (Work camp) 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 ED EXAM, GENERAL - Physical Exam Exam: See Below Exam Limited By: No Limitations General Appearance: Alert, WD/WN, No Apparent Distress Ears: Hearing Grossly Normal Nose: Normal Inspection Throat/Mouth: Normal Inspection, Normal Oropharynx, Normal Voice, No Airway Compromise Neck: Normal Inspection, Supple Respiratory/Chest: No Respiratory Distress, Lungs Clear, Normal Breath Sounds, No Accessory Muscle Use, Chest Non-Tender Cardiovascular: Normal Peripheral Pulses, No Murmur, Tachycardia Peripheral Pulses: 4+: Radial (R) GI/Abdominal: Normal Bowel Sounds, Soft, Non-Tender, No Organomegaly, No Distention Back Exam: Normal Inspection. No: CVA Tenderness (L), CVA Tenderness (R) Extremities: Normal Inspection, Normal Range of Motion, Non-Tender, No Pedal Edema, Normal Capillary Refill Neurological: Alert, Oriented, CN II-XII Intact, Normal Cognition, No Motor/ Sensory Deficits Psychiatric: Normal Affect, Normal Mood Skin Exam: Warm, Dry, Intact, Normal Color, No Rash Course - Vital Signs Last Recorded V/S: Last Vital Signs Temp 98.5 F 01/07/18 11:27 Pulse 95 01/07/18 11:27 Resp 18 01/07/18 11:27 BP 164/109 H 01/07/18 11:27 Pulse Ox 100 01/07/18 11:27 - Orders/Labs/Meds Orders: Active Orders 24 hr Category Date Time Status EKG Documentation Completion [RC] STAT Care 01/07/18 11:49 Active Orthostatic Vital Signs [RC] ASDIRECTED Care 01/07/18 11:52 Active Peripheral IV Care [RC] . DIRECTED Care 01/07/18 11:49 Active Chest 1V Frontal [CR] Stat Exams 01/07/18 11:49 Taken Peripheral IV Insertion Adult [OM.PC] Stat Oth 01/07/18 11:49 Ordered Labs: Laboratory Tests 01/07/18 01/07/18 01/07/18 Range/Units 11:36 11:36 11:36 WBC 11.06 H (4.23-9.07) K/mm3 RBC 4.64 (4.63-6.08) M/mm3 Hgb 13.6 L (13.7-17.5) gm/L Hct 41.6 (40.1-51.0) % MCV 89.7 (79.0-92.2) fl MCH 29.3 (25.7-32.2) pg MCHC 32.7 (32.2-35.5) g/dl RDW Std Deviation 47.6 H (35.1-43.9) fL Plt Count 261 (163-337) K/mm3 MPV 11.0 (9.4-12.3) fl Neut % (Auto) 94.7 H (34.0-67.9) % Lymph % (Auto) 3.6 L (21.8-53.1) % Pershing % (Auto) 1.4 L (5.3-12.2) % Eos % (Auto) 0.1 L (0.8-7.0) Baso % (Auto) 0.0 L (0.1-1.2) % Neut # (Auto) 10.48 H (1.78-5.38) K/mm3 Lymph # (Auto) 0.40 L (1.32-3.57) K/mm3 Pershing # (Auto) 0.15 L (0.30-0.82) K/mm3 Eos # (Auto) 0.01 L (0.04-0.54) K/mm3 Baso # (Auto) 0.00 L (0.01-0.08) K/mm3 Manual Slide Review Abnormal smear D-Dimer, Quantitative < 0.19 L (0.19-0.59) mg/L Sodium 142 (136-145) mEq/L Potassium 3.7 (3.5-5.1) mEq/L Chloride 103 (98-107) mEq/L Carbon Dioxide 25 (21-32) mEq/L Anion Gap 17.7 H (5-15) BUN 17 (7-18) mg/dL Creatinine 1.4 H (0.7-1.3) mg/dL Est Cr Clr Drug Dosing TNP Estimated GFR (MDRD) 59 (>60) mL/min BUN/Creatinine Ratio 12.1 L (14-18) Glucose 116 H (74-106) mg/dL Calcium 9.4 (8.5-10.1) mg/dL Total Bilirubin 0.6 (0.2-1.0) mg/dL AST 24 (15-37) U/L ALT 33 (16-63) U/L Alkaline Phosphatase 88 (46-116) U/L Troponin I < 0.017 (0.00-0.056) ng/mL C-Reactive Protein < 0.2 (<1.0) mg/dL Total Protein 7.1 (6.4-8.2) g/dl Albumin 4.2 (3.4-5.0) g/dl Globulin 2.9 gm/dL Albumin/Globulin Ratio 1.5 (1-2) Lipase 157 (73-393) U/L TSH 3rd Generation 0.958 (0.358-3.74) uIU/mL Urine Opiates Screen (NEGATIVE) Ur Buprenorphine Scrn (NEGATIVE) Ur Oxycodone Screen (NEGATIVE) Urine Methadone Screen (NEGATIVE) Ur Propoxyphene Screen (NEGATIVE) Ur Barbiturates Screen (NEGATIVE) Ur Tricyclics Screen (NEGATIVE) Ur Phencyclidine Scrn (NEGATIVE) Ur Amphetamine Screen (NEGATIVE) U Methamphetamines Scrn (NEGATIVE) U Benzodiazepines Scrn (NEGATIVE) U Cocaine Metab Screen (NEGATIVE) U Marijuana (THC) Screen (NEGATIVE) 01/07/18 01/07/18 Range/Units 12:15 13:25 WBC (4.23-9.07) K/mm3 RBC (4.63-6.08) M/mm3 Hgb (13.7-17.5) gm/L Hct (40.1-51.0) % MCV (79.0-92.2) fl MCH (25.7-32.2) pg MCHC (32.2-35.5) g/dl RDW Std Deviation (35.1-43.9) fL Plt Count (163-337) K/mm3 MPV (9.4-12.3) fl Neut % (Auto) (34.0-67.9) % Lymph % (Auto) (21.8-53.1) % Pershing % (Auto) (5.3-12.2) % Eos % (Auto) (0.8-7.0) Baso % (Auto) (0.1-1.2) % Neut # (Auto) (1.78-5.38) K/mm3 Lymph # (Auto) (1.32-3.57) K/mm3 Pershing # (Auto) (0.30-0.82) K/mm3 Eos # (Auto) (0.04-0.54) K/mm3 Baso # (Auto) (0.01-0.08) K/mm3 Manual Slide Review D-Dimer, Quantitative (0.19-0.59) mg/L Sodium (136-145) mEq/L Potassium (3.5-5.1) mEq/L Chloride (98-107) mEq/L Carbon Dioxide (21-32) mEq/L Anion Gap (5-15) BUN (7-18) mg/dL Creatinine (0.7-1.3) mg/dL Est Cr Clr Drug Dosing Estimated GFR (MDRD) (>60) mL/min BUN/Creatinine Ratio (14-18) Glucose (74-106) mg/dL Calcium (8.5-10.1) mg/dL Total Bilirubin (0.2-1.0) mg/dL AST (15-37) U/L ALT (16-63) U/L Alkaline Phosphatase (46-116) U/L Troponin I < 0.017 (0.00-0.056) ng/mL C-Reactive Protein (<1.0) mg/dL Total Protein (6.4-8.2) g/dl Albumin (3.4-5.0) g/dl Globulin gm/dL Albumin/Globulin Ratio (1-2) Lipase (73-393) U/L TSH 3rd Generation (0.358-3.74) uIU/mL Urine Opiates Screen Negative (NEGATIVE) Ur Buprenorphine Scrn Negative (NEGATIVE) Ur Oxycodone Screen Negative (NEGATIVE) Urine Methadone Screen Negative (NEGATIVE) Ur Propoxyphene Screen Negative (NEGATIVE) Ur Barbiturates Screen Negative (NEGATIVE) Ur Tricyclics Screen Negative (NEGATIVE) Ur Phencyclidine Scrn Negative (NEGATIVE) Ur Amphetamine Screen Negative (NEGATIVE) U Methamphetamines Scrn Presumptive positive H (NEGATIVE) U Benzodiazepines Scrn Negative (NEGATIVE) U Cocaine Metab Screen Negative (NEGATIVE) U Marijuana (THC) Screen Negative (NEGATIVE) Meds: Medications Discontinued Medications Generic Name Dose Route Start Last Admin Trade Name Freq PRN Reason Stop Dose Admin Al Hydroxide/Mg Hydroxide 30 0 ml 01/07/18 13:30 01/07/18 13:39 ml/ Lidocaine HCl 15 ml PO 01/07/18 13:31 45 ml ONETIME ONE Administration Hydromorphone HCl 0.5 mg 01/07/18 11:50 01/07/18 12:08 Dilaudid IVPUSH 01/07/18 11:51 0.5 mg ONETIME ONE Administration Sodium Chloride 1,000 mls @ 999 mls/hr 01/07/18 11:50 01/07/18 12:07 Normal Saline IV 01/07/18 12:50 999 mls/hr ONETIME ONE Administration Ondansetron HCl 4 mg 01/07/18 11:51 01/07/18 12:08 Zofran IVPUSH 01/07/18 11:52 4 mg ONETIME ONE Administration Pantoprazole Sodium 80 mg 01/07/18 11:50 01/07/18 12:09 Protonix Iv IVPUSH 01/07/18 11:51 80 mg .BOLUS ONE Administration Sodium Chloride 10 ml 01/07/18 11:49 01/07/18 12:10 Saline Flush FLUSH 10 ml ASDIRECTED PRN Administration Keep Vein Open - Re-Assessments/Exams Free Text/Narrative Re-Assessment/Exam: IV established with normal saline 999 mls per hour, Protonix 40 mg IVP, Zofran 4 mg IVP, and Dilaudid 0.5 mg IVP Initial labs and studies will include CBC, chem 14, urine drug tox, influenza screen, lipase, troponin, TSH, UA, CRP, chest x-ray one view, and d-dimer. Orthostatic vitals will be obtained. 01/07/18 14:[address] Sutton patients primary specialists. Heis not concerned about the right sided chest discomfort being related to vasculitis with normal cxr and no coughing up blood. Does not believe related to PE as well. He had mild exacerbation this past August requiring hospitalization. They increased his prednisone dosage to 40 mg every day and had him on a short course of Levaquin. Current complaint more likely related to GI. Patient is on prednisone thus contributing to possible gastritis. Suggested increasing his Protonix to 40 mg every day along with some Carafate. No need to increase his prednisone at this time or start him on Levaquin. However follow- up with his primary care provider Monday and Monday for reevaluation. Discussed lab results and studies with the patient. He has not vomited with admission to the ED. He did get relief to his GI complaints with GI cocktail. We 'll give the patient 2 days off from work to allow him to make appointment with Dr. Pace this coming Monday for further evaluation. Patient will require an EGD and colonoscopy. Methamphetamine came back positive on his toxicology. Mostly likely as of result from taking pseudephrine. patient denies methamphetamine use. Discharge instructions as documented. Departure - Departure Time of Disposition: 14:25 Disposition: Home, Self-Care 01 Condition: Good Clinical Impression: ANCA-positive vasculitis Bloody emesis Qualifiers: Nausea presence: with nausea Qualified Code(s): K92.0 - Hematemesis Prescriptions: Ondansetron [Zofran ODT] 4 mg PO Q6H PRN #12 tab.dis PRN Reason: Nausea/Vomiting Sucralfate [Carafate] 1 gm PO QID #24 tablet Instructions: Hematemesis, Upper Gastrointestinal Bleeding, Vasculitis, Gastrointestinal Bleeding, [id number] Referrals: Julito Hatch PA-C [Primary Care Provider] - Forms: ED Department Discharge, ED Return to Work/School Form Additional Instructions: As discussed believe current symptoms are GI in nature. With you taking long- term prednisone increases the risk of stomach irritation and contributed to a GI bleed. Continue taking the protonix 40mg twice a day. Take Carafate 1 g or 4 hours for the next 5 days. Can utilize Zantac 150 mg at at bedtime if symptoms persist. Refrain from ibuprofen, aspirin, or any aggravating foods or drinks. Follow-up with your PCP this Monday for reevaluation and also discussed obtaining EGD and colonoscopy. Take Zofran 1 odt every 6 hours as needed for nausea. Return to the ED if he developed any new or worsening symptoms as discussed. - My Orders Last 24 Hours: My Active Orders 01/07/18 11:49 EKG Documentation Completion [RC] STAT Peripheral IV Care [RC] . DIRECTED Chest 1V Frontal [CR] Stat Peripheral IV Insertion Adult [OM.PC] Stat 01/07/18 11:52 Orthostatic Vital Signs [RC] ASDIRECTED - Assessment/Plan Last 24 Hours: My Active Orders 01/07/18 11:49 EKG Documentation Completion [RC] STAT Peripheral IV Care [RC] . DIRECTED Chest 1V Frontal [CR] Stat Peripheral IV Insertion Adult [OM.PC] Stat 01/07/18 11:52 Orthostatic Vital Signs [RC] ASDIRECTED
[2018-01-07] MEDS ORDERED: Alum Hydrox/Mag Hydrox/Simeth 30 ML, Lidocaine 2% 15 ML PO ONE ×2 (13:30)
--- NOTE | 2018-01-08 07:06 | CR ---
Chest: Portable view of the chest was obtained. Comparison: Prior chest x-ray of 10/06/17. Mild chronic blunting of the right lateral costophrenic angle is seen. Slight parenchymal density is noted within the right midlung most likely due to overlapping lung markings and slight atelectasis. Lungs otherwise are clear. Heart size and mediastinum are normal. Previous cervical spine surgery is noted. Impression: 1. Findings felt to be incidental as noted above. 2. Nothing acute is appreciated on portable chest x-ray. Diagnostic code #2
== END 2018-01-07 14:54 | disposition home or self-care (01) ==
LOC: JD.ED 11:19
DX: I77.6 Arteritis, unspecified (principal); K92.0 Hematemesis; I10 Essential (primary) hypertension; K21.9 Gastro-esophageal reflux disease without esophagitis; E66.9 Obesity, unspecified; Z88.5 Allergy status to narcotic agent; Z79.899 Other long term (current) drug therapy; Z88.8 Allergy status to other drugs, medicaments and biological substances; Z79.52 Long term (current) use of systemic steroids; Z90.49 Acquired absence of other specified parts of digestive tract
CPT/HCPCS: 36415; 71045; 80053; 80306; 83690; 84443; 84484; 85025; 85379; 86140; 87804; 93005; 96361; 96374; 96375; 99285; A9270; C9113; J1170; J2405; J7040; J7050; 99284

== ENCOUNTER 2018-01-09 10:15 | Emergency (ER) | payer BC ==
[2018-01-09] MEDS ORDERED: Sodium Chloride 0.9% 10 ML Syringe FLUSH PRN (11:39)
[2018-01-09] MEDS ORDERED: Dicyclomine 10 MG Cap PO ONE ×3 (11:41→12:04)
[2018-01-09] MEDS ORDERED: Alum Hydrox/Mag Hydrox/Simeth 30 ML, Lidocaine 2% 15 ML PO ONE ×2 (11:41)
[2018-01-09] MEDS ORDERED: Pantoprazole 40 MG Vial IVPUSH ONE (11:41)
[2018-01-09] MEDS ORDERED: Sodium Chloride 0.9% 1,000 ML IV ONE (11:41)
--- NOTE | 2018-01-09 12:38 | EDM.PDOC ---
ED HPI GENERAL MEDICAL PROBLEM - General Chief Complaint: Gastrointestinal Problem Stated Complaint: VOMITING/WEAK/DIZZY Time Seen by Provider: 01/09/18 11:30 Source of Information: Reports: Patient, Old Records (recent ER records) History Limitations: Reports: No Limitations - History of Present Illness INITIAL COMMENTS - FREE TEXT/NARRATIVE: 32-year-old male presents for evaluation and treatment of chest pain and abdominal pain. Patient reports that he has had symptoms for the last 2 weeks. He states that for the last 2 days he has been coughing up blood. He reports abdominal pain and a decreased appetite. Reports he is having a dark emesis. He had 7 episodes of emesis last night. He is reporting chest pain from his sternum into his back. No fevers, chills, diarrhea, melena or hematochezia. Patient reports that he took a Tylenol around 0700 this morning but it did not seem to relieve his symptoms. He is describing the abdominal pain as a cramping sensation a rates it as a 9 out of 10. Patient was seen in the ER on 01-07-18 for similar symptoms. He had a complete workup including labs, EKG and chest x-ray. No abnormalities were found. He was discharged home with instructions to follow-up with his primary care provider. Patient has a history of ANCA positive vasculitis. He sees a specialist in [place]. Nathaniel Deleon PA-C saw this patient on Monday and consulted with his specialist in [place]. Did not feel that this was related to his vasculitis and recommended he be treated for GI bleed. He has been started on Zofran and Carafate. He states he's been taking these as prescribed but has not had any improvement in his symptoms. Patient reports that he has had an upper endoscopy and a lower endoscopy several years ago. Has not had anything recently. Currently receives IV Rituxan monthly for his ANCA positive vasculitis. Abdominal Pain Score (Numeric/FACES): 9 - Related Data Allergies Allergy/AdvReac Type Severity Reaction Status Date / Time methocarbamol [From Robaxin] Allergy Itching Verified 01/09/18 10:23 tramadol AdvReac Sweating Verified 01/09/18 10:23 Home Meds: Home Meds Pantoprazole Sodium [Protonix] 40 mg PO BID 04/25/16 [History] predniSONE [Prednisone] 20 mg PO DAILY 04/25/16 [History] Lisinopril [Prinivil] 40 mg PO DAILY #40 tablet 03/30/17 [Rx] Metoprolol Tartrate 25 mg PO BID 10/09/17 [History] Cyclobenzaprine [Flexeril] 5 mg PO ASDIRECTED PRN 11/14/17 [History] Ondansetron [Zofran ODT] 4 mg PO Q6H PRN #12 tab.dis 01/07/18 [Rx] Sucralfate [Carafate] 1 gm PO QID #24 tablet 01/07/18 [Rx] Rotuxin. 1 injection IM Q30D 01/09/18 [History] Past Medical History HEENT History: Reports: Impaired Vision Other HEENT History: wears eyeglasses Cardiovascular History: Reports: Hypertension Respiratory History: Reports: Intubation, Previous, Pneumothorax, Other (See Below) Other Respiratory History: ANCA Vasculitis, wagners disease Gastrointestinal History: Reports: GERD Genitourinary History: Reports: Renal Calculus, Renal Disease Musculoskeletal History: Reports: Back Pain, Chronic, Neck Pain, Chronic Neurological History: Reports: Headaches, Chronic Endocrine/Metabolic History: Reports: Obesity/BMI 30+ Immunologic History: Reports: Other (See Below) Other Immunologic History: vasculitis, "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." - Past Surgical History Respiratory Surgical History: Reports: Other (See Below) GI Surgical History: Reports: Appendectomy Neurological Surgical History: Reports: C-Spine, Lumbar Spine Social & Family History - Family History Family Medical History: Noncontributory Cardiac: Reports: [place] Neurological: Reports: Other (See Below) Other Neurological Family History: Mother had a crani - Tobacco Use Smoking Status *Q: Never Smoker Used Tobacco, but Quit: Yes Month Tobacco Last Used: 10 years Second Hand Smoke Exposure: No - Caffeine Use Caffeine Use: Reports: Energy Drinks, Soda Other Caffeine Use: Daily soda drinker - Alcohol Use Days Per Week of Alcohol Use: 0 Number of Drinks Per Day: 1 Total Drinks Per Week: 0 - Recreational Drug Use Recreational Drug Use: No - Living Situation & Occupation Living situation: Reports: Single, Other (Work camp) 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 Denies: Diarrhea, Hematochezia, Melena Neurological: Reports: Dizziness ED EXAM, GI/ABD - Physical Exam Exam: See Below Exam Limited By: No Limitations General Appearance: Alert, WD/WN, No Apparent Distress Ears: Normal External Exam Nose: Normal Inspection Throat/Mouth: Normal Inspection, Normal Lips, Normal Voice, No Airway Compromise Respiratory/Chest: No Respiratory Distress, Lungs Clear, Normal Breath Sounds Cardiovascular: Normal Peripheral Pulses, Regular Rate, Rhythm, No Murmur GI/Abdominal Exam: Normal Bowel Sounds, Soft, Non-Tender Neurological: Alert, Oriented, Normal Cognition Psychiatric: Normal Affect, Normal Mood Skin Exam: Warm, Dry, Normal Color EKG INTERPRETATION EKG Date: 01/09/18 Time: 11:55 Rhythm: NSR Rate (Beats/Min): 85 [employer]: Normal P-Wave: Present QRS: Normal ST-T: Normal QT: Normal EKG Interpretation Comments: NSR at 85 bpm. No acute changes. Reviewed by myself and Dr. Reynoso. Course - Vital Signs Last Recorded V/S: Last Vital Signs Temp 37.1 C 01/09/18 10:25 Pulse 94 01/09/18 13:20 Resp 16 01/09/18 13:20 BP 167/111 H 01/09/18 13:20 Pulse Ox 99 01/09/18 13:20 Orthostatic Blood Pressure [ 150/105 Standing] Orthostatic Blood Pressure [ 148/93 Sitting] Orthostatic Blood Pressure [ 164/96 Supine] - Orders/Labs/Meds Orders: Active Orders 24 hr Category Date Time Status EKG Documentation Completion [RC] ASDIRECTED Care 01/09/18 11:44 Active Orthostatic Vital Signs [RC] ASDIRECTED Care 01/09/18 11:41 Active Peripheral IV Care [RC] . DIRECTED Care 01/09/18 11:40 Active Chest 2V [CR] Stat Exams 01/09/18 11:41 Taken Peripheral IV Insertion Adult [OM.PC] Routine Oth 01/09/18 11:39 Ordered EKG 12 Lead [EK] Stat Ther 01/09/18 11:44 Ordered Labs: Laboratory Tests 01/09/18 01/09/18 01/09/18 Range/Units 11:00 11:00 11:40 WBC 9.44 H (4.23-9.07) K/mm3 RBC 4.52 L (4.63-6.08) M/mm3 Hgb 13.5 L (13.7-17.5) gm/L Hct 41.2 (40.1-51.0) % MCV 91.2 (79.0-92.2) fl MCH 29.9 (25.7-32.2) pg MCHC 32.8 (32.2-35.5) g/dl RDW Std Deviation 48.8 H (35.1-43.9) fL Plt Count 247 (163-337) K/mm3 MPV 11.0 (9.4-12.3) fl Neutrophils % (Manual) 83 H (40-60) % Band Neutrophils % 1 (0-10) % Lymphocytes % (Manual) 15 L (20-40) % Monocytes % (Manual) 0 L (2-10) % Eosinophils % (Manual) 1 (0.8-7.0) % Basophils % (Manual) 0 L (0.2-1.2) Platelet Estimate Adequate RBC Morph Comment Normal Sodium 145 (136-145) mEq/L Potassium 4.0 (3.5-5.1) mEq/L Chloride 107 (98-107) mEq/L Carbon Dioxide 28 (21-32) mEq/L Anion Gap 14.0 (5-15) BUN 13 (7-18) mg/dL Creatinine 1.5 H (0.7-1.3) mg/dL Est Cr Clr Drug Dosing 70.70 mL/min Estimated GFR (MDRD) 54 (>60) mL/min BUN/Creatinine Ratio 8.7 L (14-18) Glucose 94 (74-106) mg/dL Calcium 8.9 (8.5-10.1) mg/dL Total Bilirubin 0.5 (0.2-1.0) mg/dL AST 24 (15-37) U/L ALT 34 (16-63) U/L Alkaline Phosphatase 86 (46-116) U/L Troponin I < 0.017 (0.00-0.056) ng/mL C-Reactive Protein < 0.2 (<1.0) mg/dL Total Protein 6.5 (6.4-8.2) g/dl Albumin 3.5 (3.4-5.0) g/dl Globulin 3.0 gm/dL Albumin/Globulin Ratio 1.2 (1-2) Lipase 190 (73-393) U/L Urine Color Yellow (Yellow) Urine Appearance Clear (Clear) Urine pH 7.5 (5.0-8.0) Ur Specific David > or = 1.030 (1.005-1.030) Urine Protein 3+ H (Negative) Urine Glucose (UA) Negative (Negative) Urine Ketones Negative (Negative) Urine Occult Blood Negative (Negative) Urine Nitrite Negative (Negative) Urine Bilirubin Negative (Negative) Urine Urobilinogen 1.0 (0.2-1.0) Ur Leukocyte Esterase Negative (Negative) Urine RBC Not seen (0-5) /hpf Urine WBC 0-5 (0-5) /hpf Ur Epithelial Cells Not seen (0-5) /hpf Urine Bacteria Few (FEW) /hpf Urine Mucus Few (FEW) /hpf Urine Opiates Screen (NEGATIVE) Ur Buprenorphine Scrn (NEGATIVE) Ur Oxycodone Screen (NEGATIVE) Urine Methadone Screen (NEGATIVE) Ur Propoxyphene Screen (NEGATIVE) Ur Barbiturates Screen (NEGATIVE) Ur Tricyclics Screen (NEGATIVE) Ur Phencyclidine Scrn (NEGATIVE) Ur Amphetamine Screen (NEGATIVE) U Methamphetamines Scrn (NEGATIVE) U Benzodiazepines Scrn (NEGATIVE) U Cocaine Metab Screen (NEGATIVE) U Marijuana (THC) Screen (NEGATIVE) Ethyl Alcohol 0.00 (0.00) gm% 01/09/18 Range/Units 11:46 WBC (4.23-9.07) K/mm3 RBC (4.63-6.08) M/mm3 Hgb (13.7-17.5) gm/L Hct (40.1-51.0) % MCV (79.0-92.2) fl MCH (25.7-32.2) pg MCHC (32.2-35.5) g/dl RDW Std Deviation (35.1-43.9) fL Plt Count (163-337) K/mm3 MPV (9.4-12.3) fl Neutrophils % (Manual) (40-60) % Band Neutrophils % (0-10) % Lymphocytes % (Manual) (20-40) % Monocytes % (Manual) (2-10) % Eosinophils % (Manual) (0.8-7.0) % Basophils % (Manual) (0.2-1.2) Platelet Estimate RBC Morph Comment Sodium (136-145) mEq/L Potassium (3.5-5.1) mEq/L Chloride (98-107) mEq/L Carbon Dioxide (21-32) mEq/L Anion Gap (5-15) BUN (7-18) mg/dL Creatinine (0.7-1.3) mg/dL Est Cr Clr Drug Dosing mL/min Estimated GFR (MDRD) (>60) mL/min BUN/Creatinine Ratio (14-18) Glucose (74-106) mg/dL Calcium (8.5-10.1) mg/dL Total Bilirubin (0.2-1.0) mg/dL AST (15-37) U/L ALT (16-63) U/L Alkaline Phosphatase (46-116) U/L Troponin I (0.00-0.056) ng/mL C-Reactive Protein (<1.0) mg/dL Total Protein (6.4-8.2) g/dl Albumin (3.4-5.0) g/dl Globulin gm/dL Albumin/Globulin Ratio (1-2) Lipase (73-393) U/L Urine Color (Yellow) Urine Appearance (Clear) Urine pH (5.0-8.0) Ur Specific David (1.005-1.030) Urine Protein (Negative) Urine Glucose (UA) (Negative) Urine Ketones (Negative) Urine Occult Blood (Negative) Urine Nitrite (Negative) Urine Bilirubin (Negative) Urine Urobilinogen (0.2-1.0) Ur Leukocyte Esterase (Negative) Urine RBC (0-5) /hpf Urine WBC (0-5) /hpf Ur Epithelial Cells (0-5) /hpf Urine Bacteria (FEW) /hpf Urine Mucus (FEW) /hpf Urine Opiates Screen Negative (NEGATIVE) Ur Buprenorphine Scrn Negative (NEGATIVE) Ur Oxycodone Screen Negative (NEGATIVE) Urine Methadone Screen Negative (NEGATIVE) Ur Propoxyphene Screen Negative (NEGATIVE) Ur Barbiturates Screen Negative (NEGATIVE) Ur Tricyclics Screen Negative (NEGATIVE) Ur Phencyclidine Scrn Negative (NEGATIVE) Ur Amphetamine Screen Negative (NEGATIVE) U Methamphetamines Scrn Negative (NEGATIVE) U Benzodiazepines Scrn Negative (NEGATIVE) U Cocaine Metab Screen Negative (NEGATIVE) U Marijuana (THC) Screen Negative (NEGATIVE) Ethyl Alcohol (0.00) gm% Meds: Medications Discontinued Medications Generic Name Dose Route Start Last Admin Trade Name Freq PRN Reason Stop Dose Admin Al Hydroxide/Mg Hydroxide 30 0 ml 01/09/18 11:41 01/09/18 12:08 ml/ Lidocaine HCl 15 ml PO 01/09/18 11:42 45 ml ONETIME ONE Administration Dicyclomine HCl 20 mg 01/09/18 11:41 01/09/18 12:42 Bentyl PO 01/09/18 11:42 Not Given ONETIME ONE Dicyclomine HCl 10 mg 01/09/18 12:04 01/09/18 12:23 Bentyl PO 01/09/18 12:05 10 mg ONETIME ONE Administration Dicyclomine HCl 10 mg 01/09/18 12:04 01/09/18 12:25 Bentyl PO 01/09/18 12:05 10 mg ONETIME ONE Administration Sodium Chloride 1,000 mls @ 999 mls/hr 01/09/18 11:41 01/09/18 12:07 Normal Saline IV 01/09/18 12:41 999 mls/hr ONETIME ONE Administration Pantoprazole Sodium 40 mg 01/09/18 11:41 01/09/18 12:07 Protonix Iv IVPUSH 01/09/18 11:42 40 mg ONETIME ONE Administration Sodium Chloride 10 ml 01/09/18 11:39 01/09/18 12:10 Saline Flush FLUSH 10 ml ASDIRECTED PRN Administration Keep Vein Open - Radiology Interpretation Free Text/Narrative:: Chest: Two views of the chest were obtained. Comparison: Prior chest x-ray of 01/07/18. Slight chronic blunting of the right lateral costophrenic angle is seen. No acute parenchymal density seen within the lungs. Heart size and mediastinum are within normal limits. Previous cervical spine surgery is noted. Impression: 1. Incidental findings. Nothing acute is appreciated on two-view chest x-ray. - Re-Assessments/Exams Free Text/Narrative Re-Assessment/Exam: 01/09/18 13:09 Patient has not had any hemoptysis or hematemesis since entering the ER. Reviewed the labs, EKG and imaging with the patient. Plan was to do a rectal exam to ensure that he does not have any blood in his stool. However, at this time patient just recalled that he has a court date 13: 30 and is asking to leave at this time. Discharge instructions as documented. Departure - Departure Time of Disposition: 13:12 Disposition: Home, Self-Care 01 Condition: Fair Clinical Impression: ANCA-positive vasculitis - Discharge Information Instructions: Vasculitis Referrals: Julito Hatch PA-C [Primary Care Provider] - Forms: ED Department Discharge Additional Instructions: Continue current plan of care. Follow-up with family medicine this week for recheck of your symptoms. Please return to the ER for symptoms change or worsen. - My Orders Last 24 Hours: My Active Orders 01/09/18 11:39 Peripheral IV Insertion Adult [OM.PC] Routine 01/09/18 11:40 Peripheral IV Care [RC] . DIRECTED 01/09/18 11:41 Orthostatic Vital Signs [RC] ASDIRECTED Chest 2V [CR] Stat 01/09/18 11:44 EKG Documentation Completion [RC] ASDIRECTED EKG 12 Lead [EK] Stat - Assessment/Plan Last 24 Hours: My Active Orders 01/09/18 11:39 Peripheral IV Insertion Adult [OM.PC] Routine 01/09/18 11:40 Peripheral IV Care [RC] . DIRECTED 01/09/18 11:41 Orthostatic Vital Signs [RC] ASDIRECTED Chest 2V [CR] Stat 01/09/18 11:44 EKG Documentation Completion [RC] ASDIRECTED EKG 12 Lead [EK] Stat
[2018-01-09 13:21] VITALS: BP 167/111
--- NOTE | 2018-01-10 08:59 | CR ---
Chest: Two views of the chest were obtained. Comparison: Prior chest x-ray of 01/07/18. Slight chronic blunting of the right lateral costophrenic angle is seen. No acute parenchymal density seen within the lungs. Heart size and mediastinum are within normal limits. Previous cervical spine surgery is noted. Impression: 1. Incidental findings. Nothing acute is appreciated on two-view chest x-ray. Diagnostic code #2 MTDD
== END 2018-01-09 13:20 | disposition home or self-care (01) ==
LOC: JD.ED 10:15
DX: I77.6 Arteritis, unspecified (principal); I10 Essential (primary) hypertension; K21.9 Gastro-esophageal reflux disease without esophagitis; Z87.891 Personal history of nicotine dependence; Z79.52 Long term (current) use of systemic steroids; Z79.899 Other long term (current) drug therapy; Z88.5 Allergy status to narcotic agent; Z88.8 Allergy status to other drugs, medicaments and biological substances
CPT/HCPCS: 36415; 71046; 80053; 80306; 81001; 83690; 84484; 85025; 86140; 93005; 96361; 96374; 99284; A9270; C9113; G0480; J7040; J7050; 93010

== ENCOUNTER 2018-01-11 10:49 | Emergency (ER) | payer BC ==
[2018-01-11 11:07] VITALS: BP 160/116
[2018-01-11] MEDS ORDERED: Sodium Chloride 0.9% 10 ML Syringe FLUSH PRN (11:34)
[2018-01-11] MEDS ORDERED: Ondansetron 4 MG/2 ML SDV IVPUSH ONE (11:37)
[2018-01-11] MEDS ORDERED: Sodium Chloride 0.9% 1,000 ML IV ONE (11:37)
[2018-01-11] MEDS ORDERED: Morphine 4 MG/ML Syringe IVPUSH ONE (11:37)
[2018-01-11] MEDS ORDERED: Alum Hydrox/Mag Hydrox/Simeth 30 ML, Lidocaine 2% 15 ML PO ONE ×2 (11:37)
--- NOTE | 2018-01-11 12:36 | EDM.PDOC ---
ED HPI GENERAL MEDICAL PROBLEM - General Chief Complaint: Abdominal Pain Stated Complaint: VOMITING/UPPER ABDOMINAL PAIN NOT BETTER Time Seen by Provider: 01/11/18 11:14 Source of Information: Reports: Patient History Limitations: Reports: No Limitations - History of Present Illness INITIAL COMMENTS - FREE TEXT/NARRATIVE: Patient is a 32-year-old male who presents to the ED complaining of epigastric abdominal pain with burning sensation and nausea/vomiting with red streaks of blood present in the emesis. In addition he is also complaining of pain to the right anterior chest along the sternal border that radiates to the axilla. He has been seen multiple times in the ER. Last evaluation was 01/09/18. This was for similar complaints. I did see the patient on January 07, 2018 for similar complaints as well. Workup included labs, EKG, and chest x-ray. No significant findings were noted. I discharged patient home with instructions to follow-up with primary care provider. Patient has tried to make an appointment and states his PCP is full. I also discharged the patient on Carafate with instructions to continue taking Protonix and may use Zantac as well for discomfort. Suggesting this is more likely related to GI issues such as gastritis or maybe an ulcer. During both ED visits patient had no nausea or vomiting. Again pain is described as a burning sensation. He does have a history of GERD. He has had an upper endoscopy and lower endoscopy several years ago. He has not had any thing recently. 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 He sees specialist for this. I spoke with the specialist Dr. Asher and agreed this was GI related. In addition patient has pain to the lateral aspect of his right side of his chest that radiates into his back. This is worse with palpation and also taking a deep breath. Patient has a history of thoracotomy with large scar present. This thoracotomy was obtained due to pneumothorax that did not resolve his simple measures. Patient admits to drinking Mountain Dew and also eating chocolate. Denies eating any spicy foods. Denies fever, dysuria, dizziness, or any additional complaints. Abdominal Pain Score (Numeric/FACES): 9 - Related Data Allergies Allergy/AdvReac Type Severity Reaction Status Date / Time methocarbamol [From Robaxin] Allergy Itching Verified 01/11/18 11:01 tramadol AdvReac Sweating Verified 01/11/18 11:01 Home Meds: Home Meds Pantoprazole Sodium [Protonix] 40 mg PO BID 04/25/16 [History] predniSONE [Prednisone] 20 mg PO DAILY 04/25/16 [History] Lisinopril [Prinivil] 40 mg PO DAILY #40 tablet 03/30/17 [Rx] Metoprolol Tartrate 25 mg PO BID 10/09/17 [History] Cyclobenzaprine [Flexeril] 5 mg PO ASDIRECTED PRN 11/14/17 [History] Rotuxin. 1 injection IM Q30D 01/09/18 [History] Acetaminophen/HYDROcodone [Toponas 325-5 MG] 1 tab PO Q6H PRN #10 tablet 01/11/18 [Rx] Ondansetron [Zofran ODT] 4 mg PO Q6H PRN #12 tab.dis 01/11/18 [Rx] Ranitidine HCl [Zantac] 150 mg PO BID 01/11/18 [History] Sucralfate [Carafate] 1 gm PO QID #24 tablet 01/11/18 [Rx] Past Medical History HEENT History: Reports: Impaired Vision Other HEENT History: wears eyeglasses Cardiovascular History: Reports: Hypertension Respiratory History: Reports: Intubation, Previous, Pneumothorax, Other (See Below) Other Respiratory History: ANCA Vasculitis, wagners disease Gastrointestinal History: Reports: GERD Genitourinary History: Reports: Renal Calculus, Renal Disease Musculoskeletal History: Reports: Back Pain, Chronic, Neck Pain, Chronic Neurological History: Reports: Headaches, Chronic Endocrine/Metabolic History: Reports: Obesity/BMI 30+ Immunologic History: Reports: Other (See Below) Other Immunologic History: vasculitis, "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." - Past Surgical History Respiratory Surgical History: Reports: Other (See Below) GI Surgical History: Reports: Appendectomy Neurological Surgical History: Reports: C-Spine, Lumbar Spine Social & Family History - Family History Family Medical History: Noncontributory Cardiac: Reports: MD Neurological: Reports: Other (See Below) Other Neurological Family History: Mother had a crani - Tobacco Use Smoking Status *Q: Never Smoker Used Tobacco, but Quit: Yes Month Tobacco Last Used: 10 years Second Hand Smoke Exposure: No - Caffeine Use Caffeine Use: Reports: Energy Drinks, Soda Other Caffeine Use: Daily soda drinker - Alcohol Use Days Per Week of Alcohol Use: 0 Number of Drinks Per Day: 1 Total Drinks Per Week: 0 - Recreational Drug Use Recreational Drug Use: No - Living Situation & Occupation Living situation: Reports: Single, Other (Work camp) 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 Denies: Shortness of Breath, Wheezing, Cough, Sputum Cardiovascular: Reports: No Symptoms GI/Abdominal: Reports: Nausea, Vomiting (few episodes of emesis with minimal blood. few streaks of blood noted. ). Denies: Constipation, Diarrhea, Hematemesis : Reports: No Symptoms Musculoskeletal: Reports: No Symptoms Skin: Reports: No Symptoms Neurological: Reports: No Symptoms Psychiatric: Reports: No Symptoms ED EXAM, GI/ABD - Physical Exam Exam: See Below Exam Limited By: No Limitations General Appearance: Alert, WD/WN, No Apparent Distress Ears: Hearing Grossly Normal Nose: Normal Inspection Throat/Mouth: Normal Inspection, Normal Oropharynx, Normal Voice, No Airway Compromise Head: Atraumatic, Normocephalic Neck: Normal Inspection, Supple, Non-Tender, Full Range of Motion Respiratory/Chest: No Respiratory Distress, Lungs Clear, Normal Breath Sounds, No Accessory Muscle Use, Chest Non-Tender Cardiovascular: Normal Peripheral Pulses, Regular Rate, Rhythm GI/Abdominal Exam: Normal Bowel Sounds, Soft, No Organomegaly, No Distention, Tender (Epigastric region. ) Back Exam: Normal Inspection. No: CVA Tenderness (L), CVA Tenderness (R) Extremities: Normal Inspection Neurological: Alert, Oriented, CN II-XII Intact, Normal Cognition, No Motor/ Sensory Deficits Psychiatric: Normal Affect, Normal Mood Skin Exam: Warm, Dry, Intact, Normal Color, No Rash Course - Vital Signs Last Recorded V/S: Last Vital Signs Temp 98.9 F 01/11/18 11:03 Pulse 104 H 01/11/18 11:03 Resp 20 01/11/18 11:03 BP 160/116 H 01/11/18 11:03 Pulse Ox 99 01/11/18 11:03 - Orders/Labs/Meds Orders: Active Orders 24 hr Category Date Time Status EKG Documentation Completion [RC] STAT Care 01/11/18 11:35 Active Peripheral IV Care [RC] . DIRECTED Care 01/11/18 11:36 Active Peripheral IV Insertion Adult [OM.PC] Stat Oth 01/11/18 11:35 Ordered Labs: Laboratory Tests 01/11/18 01/11/18 01/11/18 Range/Units 11:15 11:15 11:15 WBC 9.79 H (4.23-9.07) K/mm3 RBC 4.64 (4.63-6.08) M/mm3 Hgb 13.6 L (13.7-17.5) gm/L Hct 42.2 (40.1-51.0) % MCV 90.9 (79.0-92.2) fl MCH 29.3 (25.7-32.2) pg MCHC 32.2 (32.2-35.5) g/dl RDW Std Deviation 49.5 H (35.1-43.9) fL Plt Count 242 (163-337) K/mm3 MPV 10.9 (9.4-12.3) fl Neut % (Auto) 78.1 H (34.0-67.9) % Lymph % (Auto) 10.1 L (21.8-53.1) % [place] % (Auto) 8.6 (5.3-12.2) % Eos % (Auto) 2.5 (0.8-7.0) Baso % (Auto) 0.3 (0.1-1.2) % Neut # (Auto) 7.65 H (1.78-5.38) K/mm3 Lymph # (Auto) 0.99 L (1.32-3.57) K/mm3 [place] # (Auto) 0.84 H (0.30-0.82) K/mm3 Eos # (Auto) 0.24 (0.04-0.54) K/mm3 Baso # (Auto) 0.03 (0.01-0.08) K/mm3 PT 9.8 (8.0-13.0) SECONDS INR 0.92 D-Dimer, Quantitative (0.19-0.59) mg/L Sodium 145 (136-145) mEq/L Potassium 3.6 (3.5-5.1) mEq/L Chloride 106 (98-107) mEq/L Carbon Dioxide 28 (21-32) mEq/L Anion Gap 14.6 (5-15) BUN 15 (7-18) mg/dL Creatinine 1.3 (0.7-1.3) mg/dL Est Cr Clr Drug Dosing 81.58 mL/min Estimated GFR (MDRD) > 60 (>60) mL/min BUN/Creatinine Ratio 11.5 L (14-18) Glucose 78 (74-106) mg/dL Calcium 9.4 (8.5-10.1) mg/dL Total Bilirubin 0.6 (0.2-1.0) mg/dL AST 23 (15-37) U/L ALT 35 (16-63) U/L Alkaline Phosphatase 88 (46-116) U/L Troponin I < 0.017 (0.00-0.056) ng/mL C-Reactive Protein < 0.2 (<1.0) mg/dL Total Protein 6.9 (6.4-8.2) g/dl Albumin 3.7 (3.4-5.0) g/dl Globulin 3.2 gm/dL Albumin/Globulin Ratio 1.2 (1-2) Lipase 191 (73-393) U/L Urine Color (Yellow) Urine Appearance (Clear) Urine pH (5.0-8.0) Ur Specific [place] (1.005-1.030) Urine Protein (Negative) Urine Glucose (UA) (Negative) Urine Ketones (Negative) Urine Occult Blood (Negative) Urine Nitrite (Negative) Urine Bilirubin (Negative) Urine Urobilinogen (0.2-1.0) Ur Leukocyte Esterase (Negative) Urine RBC (0-5) /hpf Urine WBC (0-5) /hpf Ur Epithelial Cells (0-5) /hpf Urine Bacteria (FEW) /hpf Urine Mucus (FEW) /hpf 01/11/18 01/11/18 Range/Units 11:15 13:36 WBC (4.23-9.07) K/mm3 RBC (4.63-6.08) M/mm3 Hgb (13.7-17.5) gm/L Hct (40.1-51.0) % MCV (79.0-92.2) fl MCH (25.7-32.2) pg MCHC (32.2-35.5) g/dl RDW Std Deviation (35.1-43.9) fL Plt Count (163-337) K/mm3 MPV (9.4-12.3) fl Neut % (Auto) (34.0-67.9) % Lymph % (Auto) (21.8-53.1) % [place] % (Auto) (5.3-12.2) % Eos % (Auto) (0.8-7.0) Baso % (Auto) (0.1-1.2) % Neut # (Auto) (1.78-5.38) K/mm3 Lymph # (Auto) (1.32-3.57) K/mm3 [place] # (Auto) (0.30-0.82) K/mm3 Eos # (Auto) (0.04-0.54) K/mm3 Baso # (Auto) (0.01-0.08) K/mm3 PT (8.0-13.0) SECONDS INR D-Dimer, Quantitative < 0.19 L (0.19-0.59) mg/L Sodium (136-145) mEq/L Potassium (3.5-5.1) mEq/L Chloride (98-107) mEq/L Carbon Dioxide (21-32) mEq/L Anion Gap (5-15) BUN (7-18) mg/dL Creatinine (0.7-1.3) mg/dL Est Cr Clr Drug Dosing mL/min Estimated GFR (MDRD) (>60) mL/min BUN/Creatinine Ratio (14-18) Glucose (74-106) mg/dL Calcium (8.5-10.1) mg/dL Total Bilirubin (0.2-1.0) mg/dL AST (15-37) U/L ALT (16-63) U/L Alkaline Phosphatase (46-116) U/L Troponin I (0.00-0.056) ng/mL C-Reactive Protein (<1.0) mg/dL Total Protein (6.4-8.2) g/dl Albumin (3.4-5.0) g/dl Globulin gm/dL Albumin/Globulin Ratio (1-2) Lipase (73-393) U/L Urine Color Yellow (Yellow) Urine Appearance Clear (Clear) Urine pH 6.0 (5.0-8.0) Ur Specific [place] > or = 1.030 (1.005-1.030) Urine Protein 2+ H (Negative) Urine Glucose (UA) Negative (Negative) Urine Ketones Negative (Negative) Urine Occult Blood Negative (Negative) Urine Nitrite Negative (Negative) Urine Bilirubin Negative (Negative) Urine Urobilinogen 0.2 (0.2-1.0) Ur Leukocyte Esterase Negative (Negative) Urine RBC 0-5 (0-5) /hpf Urine WBC 0-5 (0-5) /hpf Ur Epithelial Cells 0-5 (0-5) /hpf Urine Bacteria Few (FEW) /hpf Urine Mucus Not seen (FEW) /hpf Meds: Medications Discontinued Medications Generic Name Dose Route Start Last Admin Trade Name Freq PRN Reason Stop Dose Admin Al Hydroxide/Mg Hydroxide 30 0 ml 01/11/18 11:37 01/11/18 12:18 ml/ Lidocaine HCl 15 ml PO 01/11/18 11:38 45 ml ONETIME ONE Administration Sodium Chloride 1,000 mls @ 999 mls/hr 01/11/18 11:37 01/11/18 12:18 Normal Saline IV 01/11/18 12:37 999 mls/hr ONETIME ONE Administration Morphine Sulfate 4 mg 01/11/18 11:37 01/11/18 12:17 Morphine IVPUSH 01/11/18 11:38 4 mg ONETIME ONE Administration Ondansetron HCl 4 mg 01/11/18 11:37 01/11/18 12:17 Zofran IVPUSH 01/11/18 11:38 4 mg ONETIME ONE Administration Sodium Chloride 10 ml 01/11/18 11:34 01/11/18 12:18 Saline Flush FLUSH 10 ml ASDIRECTED PRN Administration Keep Vein Open - Re-Assessments/Exams Free Text/Narrative Re-Assessment/Exam: IV established with normal saline 999 mL per hour, morphine 4 mg IVP, GI cocktail, Zofran 4 mg IVP. Initial labs and studies include CBC, chem 14, CRP, lipase, coags, D-dimer, UA, EKG, and abdomen and chest series. Abdominal limited ultrasound ordered. Patient has mild to moderate pain to the RUQ. Suggesting gallbladder may be involved. Per ultrasongrapher patients gall bladder is contracted. Suggested returning at 1500 hrs to have it completed. I had Field Support Specialist make an appt with patients PCP and a General Surgeon for next week. Patient has an appt with for General Surgeon for January 16 at 1400 hrs and with PCP for January 17 at noon. Reassessment, patient is feeling better after the above medications. Has not provided a UA sample. Labs have been reviewed along with x-ray of the abdomen/ chest with no concerning findings. Once UA has been obtained will discharge patient home with the above instructions. Suspect cause of discomfort may be related to gastritis which is precipitated by taking prednisone on a daily basis as well as his dietary intake. I also believe the discomfort he has to the right anterior/lateral chest is associated with the thoracotomy that took place to repair pneumothorax. Patient has not had any emesis with blood present while in the ED. He refuses rectal exam for blood. 01/11/18 15:01 UA reviewed no concerning finding. 01/11/18 16:51 Limited abdominal ultrasound impression: Nothing acute is seen on right upper quadrant abdominal ultrasound. Departure - Departure Time of Disposition: 13:42 Disposition: Home, Self-Care 01 Condition: Good Clinical Impression: Abdominal pain of unknown etiology, Atypical chest pain Abdominal pain Qualifiers: Abdominal location: right upper quadrant Qualified Code(s): R10.11 - Right upper quadrant pain - Discharge Information Prescriptions: Acetaminophen/HYDROcodone [Toponas 325-5 MG] 1 tab PO Q6H PRN #10 tablet PRN Reason: Pain (Severe 7-10) Ondansetron [Zofran ODT] 4 mg PO Q6H PRN #12 tab.dis PRN Reason: Nausea/Vomiting Sucralfate [Carafate] 1 gm PO QID #24 tablet Instructions: Nausea and Vomiting, Adult, [id number], Abdominal Pain, Adult, [id number], Nonspecific Chest Pain, [id number], Pain Medicine Instructions, [id number] Referrals: Julito Hatch PA-C [Primary Care Provider] - Forms: ED Department Discharge Additional Instructions: As discussed believe current complaint is related to gastritis which is inflammation of the stomach secondary to the chronic prednisone usage and also your dietary intake. Continue taking the Protonix, Zantac, and Carafate as prescribed. For nausea/vomiting take Zofran 1 tab every 6 hours as needed. Ultrasound of the gallbladder will be obtained at 3:00 today since it was contracted on initial examination. Results will be provided to me. Please call the ED this evening at [phone] two obtain the results. Appointment with Dr. Natarajan General surgeon is scheduled for 2 pm 01/16/18. Appt with PCP is scheduled for 01/17/18 at noon. For severe pain take Toponas one tab every 6 hours as needed. Do not drive this evening since receiving a sedative medication and do not drive while taking the Toponas. Refrain from intake of spicy foods, caffeinated beverages, carbonated beverages, chocolates, or other foods/drinks that may cause worsening symptoms. Do not take any naproxen, Aleve , or ibuprofen. Do not take Tylenol with the Toponas. Continue taking all your other home medications as prescribed. In addition I do believe the discomfort to your chest is related to the thoracotomy you had for the pneumothorax. - My Orders Last 24 Hours: My Active Orders 01/11/18 11:35 EKG Documentation Completion [RC] STAT Peripheral IV Insertion Adult [OM.PC] Stat 01/11/18 11:36 Peripheral IV Care [RC] . DIRECTED - Assessment/Plan Last 24 Hours: My Active Orders 01/11/18 11:35 EKG Documentation Completion [RC] STAT Peripheral IV Insertion Adult [OM.PC] Stat 01/11/18 11:36 Peripheral IV Care [RC] . DIRECTED
--- NOTE | 2018-01-11 13:26 | CR ---
Abdominal series: Supine and upright views of the abdomen were obtained. Frontal view of the chest was also obtained. Comparison: Previous chest x-ray of 01/09/18, no previous abdominal x-ray, previous abdomen and pelvis CT exam of 04/05/17 is available. Previous cervical spine surgery is noted. Heart size and mediastinum are within normal limits. Blunting of the right lateral costophrenic angle is seen which appears chronic. No acute parenchymal densities are seen. Bowel gas pattern is normal. Calcifications are seen within the pelvis compatible with phleboliths. No free air is seen. Impression: 1. Incidental findings. Nothing acute is seen on abdominal series. Diagnostic code #2
--- NOTE | 2018-01-11 16:25 | US ---
Limited abdominal ultrasound: Multiple real-time images of the upper right abdomen were obtained. Slightly unusual anatomy is seen at the junction of the gallbladder and common bile duct which is felt to be incidental. No gallstones are seen. No biliary duct dilatation is seen. Right kidney shows no hydronephrosis or mass and has a length of 9.5 cm. Liver shows no focal parenchymal abnormality. Portal vein shows normal hepatopedal flow. Impression: 1. Nothing acute is seen on right upper quadrant abdominal ultrasound. Diagnostic code #1
== END 2018-01-11 15:36 | disposition home or self-care (01) ==
LOC: JD.ED 10:49
DX: R10.11 Right upper quadrant pain (principal); R07.89 Other chest pain; I10 Essential (primary) hypertension; K21.9 Gastro-esophageal reflux disease without esophagitis; E66.9 Obesity, unspecified; Z88.8 Allergy status to other drugs, medicaments and biological substances; Z88.5 Allergy status to narcotic agent; Z79.899 Other long term (current) drug therapy
CPT/HCPCS: 36415; 74022; 76705; 80053; 81001; 83690; 84484; 85025; 85379; 85610; 86140; 93005; 96361; 96374; 96375; 99285; A9270; J2270; J2405; J7040; J7050

== ENCOUNTER 2018-11-25 09:26 | Emergency (ER) | payer BC, MEDICAID ==
[2018-11-25 09:44] VITALS: BP 145/106
--- NOTE | 2018-11-25 10:09 | EDM.PDOC ---
ED HPI GENERAL MEDICAL PROBLEM - General Chief Complaint: Back Pain or Injury Stated Complaint: BACK PAIN Time Seen by Provider: 11/25/18 10:03 Source of Information: Reports: Patient History Limitations: Reports: No Limitations - History of Present Illness INITIAL COMMENTS - FREE TEXT/NARRATIVE: 32-year-old male presents to the ED with gradually worsening low back pain over the last 2-3 weeks. Patient had L5-S1 fusion process after previous DEXA discectomy failed to relieve his low back pain. He had this done May 27 in [place]. 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 He is finding that the job is intolerable with increased twisting and pulling opposes aggravating his low back pain. This morning he found he could barely get out of bed. In his primarily out the L1 to area in his lower back. No radicular pain in his legs. Patient is still on high-dose steroids 30 mg daily for control of his vasculitis. Currently on no pain medications. Onset: Gradual Onset Date: 11/14/18 Duration: Day(s):, Getting Worse, Waxing/Waning Location: Reports: Back (Diffuse lumbar back pain primarily lumbar 1 to area.) Quality: Reports: Ache, Throbbing Severity: Moderate Improves with: Reports: Rest Worsens with: Reports: Movement Context: Denies: Activity, Exercise, Lifting, Sick Contact, Trauma, Other Associated Symptoms: Reports: No Other Symptoms Treatments SCLEROSCOPE TESTER: Reports: Acetaminophen, Other (see below) Other Treatments SCLEROSCOPE TESTER: prednisone Lower Back Pain Score (Numeric/FACES): 8 - Related Data Allergies Allergy/AdvReac Type Severity Reaction Status Date / Time methocarbamol [From Robaxin] Allergy Itching Verified 11/25/18 09:34 tramadol AdvReac Sweating Verified 11/25/18 09:34 Home Meds: Home Meds Pantoprazole Sodium [Protonix] 40 mg PO BID 04/25/16 [History] predniSONE [Prednisone] 30 mg PO DAILY 04/25/16 [History] Lisinopril [Prinivil] 40 mg PO DAILY #40 tablet 03/30/17 [Rx] Metoprolol Tartrate 25 mg PO BID 10/09/17 [History] Rotuxin. 1 injection IM Q30D 01/09/18 [History] Ranitidine HCl [Zantac] 150 mg PO BID 01/11/18 [History] oxyCODONE HCl/Acetaminophen [Percocet 5-325 mg Tablet] 1 - 2 each PO Q4H PRN # 40 tablet 11/25/18 [Rx] Past Medical History HEENT History: Reports: Impaired Vision Other HEENT History: wears eyeglasses Cardiovascular History: Reports: Hypertension Respiratory History: Reports: Intubation, Previous, Pneumothorax, Other (See Below) Other Respiratory History: ANCA Vasculitis, wagners disease Gastrointestinal History: Reports: GERD Genitourinary History: Reports: Renal Calculus, Renal Disease Musculoskeletal History: Reports: Back Pain, Chronic, Neck Pain, Chronic Neurological History: Reports: Headaches, Chronic Endocrine/Metabolic History: Reports: Obesity/BMI 30+ Immunologic History: Reports: Other (See Below) Other Immunologic History: vasculitis, "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." - Past Surgical History Respiratory Surgical History: Reports: Other (See Below) GI Surgical History: Reports: Appendectomy Neurological Surgical History: Reports: C-Spine, Lumbar Spine Musculoskeletal Surgical History: Reports: Other (See Below) Other Musculoskeletal Surgeries/Procedures:: L5-S1 fusion Social & Family History - Family History Family Medical History: Noncontributory Cardiac: Reports: [place] Neurological: Reports: Other (See Below) Other Neurological Family History: Mother had a crani - Tobacco Use Smoking Status *Q: Never Smoker - Caffeine Use Caffeine Use: Reports: Soda Other Caffeine Use: Daily soda drinker - Recreational Drug Use Recreational Drug Use: No - Living Situation & Occupation Living situation: Reports: Single, Other (Work camp) 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 Denies: Fever, Chills HEENT: Reports: Glasses Respiratory: Reports: No Symptoms Cardiovascular: Reports: No Symptoms Endocrine: Reports: Fatigue GI/Abdominal: Reports: No Symptoms : Reports: No Symptoms Musculoskeletal: Reports: Back Pain (Diffuse low back pain particularly throat the lumbar spine at L1-L2 level seems to be worse at the upper part of his scar. ) Skin: Reports: No Symptoms, Other (Patient does have a chronic vasculitis.) Neurological: Reports: No Symptoms Psychiatric: Reports: No Symptoms Hematologic/Lymphatic: Reports: No Symptoms Immunologic: Reports: No Symptoms ED EXAM,LOWER BACK PAIN/INJURY - Physical Exam Exam: See Below Exam Limited By: No Limitations General Appearance: Alert, WD/WN, Mild Distress, Other (Prefers to lie in the position on his left side side.) Back Exam: Other (Inspection of his lower back shows pain mostly at the superior part of his surgical scar which travels up to the L1 vertebra. There is minimal paraspinal muscle spasm. Pain is deeper on palpation particularly at L1-L2 facet joints bilaterally.) Extremities: Normal Inspection ( There is pain to palpation throughout the transverse processes of the lumbar spine bilaterally.), Normal Range of Motion, Non-Tender, No Pedal Edema Neurological: Alert, Normal Dorsiflexion, CN II-XII Intact, No Motor/Sensory Deficits, Oriented x 3. No: Normal Gait Psychiatric: Normal Affect Skin Exam: Warm, Dry, Intact, Normal Color, No Rash Course - Vital Signs Last Recorded V/S: Last Vital Signs Temp 36.8 C 11/25/18 09:38 Pulse 96 11/25/18 09:38 Resp 14 11/25/18 09:38 BP 145/106 H 11/25/18 09:38 Pulse Ox 96 11/25/18 09:38 - Orders/Labs/Meds Orders: Active Orders 24 hr Category Date Time Status Lumbar Spine 2 or 3V [CR] Stat Exams 11/25/18 10:07 Taken - Radiology Interpretation Free Text/Narrative:: 32-year-old male attends the ED with acute exacerbation of chronic low back pain. Patient did have a previous discectomy he believes at L4-L5. On May 27 he underwent spinal fusion at L5-S1 level back in [place]. 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 Finding it very difficult to do the job with a lot of twisting and turning it's aggravating his low back pain. particularily it has been bad the last 2 weeks and particularly worse the last 2 days[address] himself and therefore I cannot give him any injectable pain medication. An AP and lateral of his spine to be done to rule out any loosening of his hardware. - Re-Assessments/Exams Free Text/Narrative Re-Assessment/Exam: 11/25/18 10:25 AP and lateral x-rays of his lumbar spine revealed the L5-S1 fusion hardware is in good position with no sign of loosening. The remainder of the vertebra of the lumbar spine including T12 appear to be normal with no abnormalities in the disc spaces. Patient essentially pain management. He will use Percocet 5/325 mg tablets one or 2 every 4-6 hours when he's not in the workplace. I will write him a prescription for 36 tabs to try and get him through the next 3 weeks before he can head back to [place]. Patient doesn't have his wallet with him but does have a credit card. Therefore we'll try and give him medicine to the [facility]. Will dispense 40 tablets of Percocet Departure - Departure Time of Disposition: 10:33 Disposition: Home, Self-Care 01 Condition: Fair Clinical Impression: Acute exacerbation of chronic low back pain - Discharge Information *PRESCRIPTION DRUG MONITORING PROGRAM REVIEWED*: Not Applicable *COPY OF PRESCRIPTION DRUG MONITORING REPORT IN PATIENT DEAN: Not Applicable Prescriptions: oxyCODONE HCl/Acetaminophen [Percocet 5-325 mg Tablet] 1 - 2 each PO Q4H PRN # 40 tablet PRN Reason: pain relief. Referrals: Julito Hatch PA-C [Primary Care Provider] - Forms: ED Department Discharge, ED Return to Work/School Form Additional Instructions: Evaluation in the emergency room this morning in regards to acute exacerbation of low back pain post spinal fusion at L5-S1. Blind with chronic inflammatory disease process of vasculitis. X-rays of your lumbar spine reveal you're hardware to be in excellent position with no sign of loosening. The bones above the fusion also appeared to be normal with no sign of compression fracture injuries or fractures. Disc spaces are well maintained. Her's that current pain is simply from overuse of back muscles after fusion. Of note most fusions take about a year to heal solidly. 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 The greater prescription for Percocet 5/325 mg tablets one or 2 every 4-6 hours while not at work for pain relief. Cyst try and get used to the next 20 days until he can return to [place] for chronic pain management. - My Orders Last 24 Hours: My Active Orders 11/25/18 10:07 Lumbar Spine 2 or 3V [CR] Stat - Assessment/Plan Last 24 Hours: My Active Orders 11/25/18 10:07 Lumbar Spine 2 or 3V [CR] Stat
--- NOTE | 2018-11-25 14:08 | CR ---
Lumbar spine: AP, lateral and coned-down lateral views centered to the lumbosacral junction were obtained. Comparison: Prior CT lumbar spine study of 03/04/17. Transpedicle screws are identified at L5-S1. This is an interval change from previous CT exam. Other disc spaces and vertebral body heights are maintained. Pedicles are intact. Transverse and spinous processes are intact. Sacroiliac joints appear within normal limits. Impression: 1. Previous surgery at L5-S1. 2. Three-view lumbar spine study is otherwise unremarkable. Diagnostic code #2
== END 2018-11-25 10:40 | disposition home or self-care (01) ==
LOC: JD.ED 09:26
DX: M54.5 Low back pain (principal); G89.29 Other chronic pain; I10 Essential (primary) hypertension; K21.9 Gastro-esophageal reflux disease without esophagitis; Z88.5 Allergy status to narcotic agent; Z79.899 Other long term (current) drug therapy
CPT/HCPCS: 72100; 72100-26; 99283

== ENCOUNTER 2018-11-28 12:03 | Emergency (ER) | payer BC ==
[2018-11-28 12:12] VITALS: BP 157/101
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
== END 2018-11-28 13:05 | disposition home or self-care (01) ==
LOC: JD.ED 12:03
DX: M54.41 Lumbago with sciatica, right side (principal); I10 Essential (primary) hypertension; E66.9 Obesity, unspecified; Z79.899 Other long term (current) drug therapy; Z88.8 Allergy status to other drugs, medicaments and biological substances; Z76.5 Malingerer [conscious simulation]
CPT/HCPCS: 99283

== ENCOUNTER 2018-12-01 10:19 | Emergency (ER) | payer BC ==
[2018-12-01 10:37] VITALS: BP 158/105
--- NOTE | 2018-12-01 11:44 | EDM.PDOC ---
ED HPI GENERAL MEDICAL PROBLEM - General Chief Complaint: Back Pain or Injury Stated Complaint: BACK PAIN Time Seen by Provider: 12/01/18 11:21 Source of Information: Reports: Patient History Limitations: Reports: No Limitations - History of Present Illness INITIAL COMMENTS - FREE TEXT/NARRATIVE: 33-year-old male presents for evaluation and treatment of back pain. patient is reported to have chronic back pain. Has been seen in the ER on several occasions for back pain over the last few years. Supposedly this summer while in [place] he had a fusion of L5-S1. 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 He is now complaining of low back pain primarily to the right side with radiation into his right buttocks. No numbness or tingling in the extremities. No weakness. No urinary or stool incontinence. He denies any urinary symptoms such as dysuria. Primary care provider is Julito Hatch. Patient was seen in the ER on November 25; he was given 40 Percocet for pain control. He took all of these. He was seen by myself on November 28 in the ER. Prescribed Norflex and instructed to follow-up with physical therapy. He states he has contacted physical therapy and is supposed to start with them this week. He was supposed to see his primary care provider on November 29 but his primary was out with flu symptoms. He followed up with a different provider in the clinic on Monday but states that they did not do anything for him. No imaging has been ordered. He states that he is only taking the Norflex I prescribed for him on Monday, [id number] Tylenol, Motrin and Biofreeze. Lower Back Pain Score (Numeric/FACES): 9 - Related Data Allergies Allergy/AdvReac Type Severity Reaction Status Date / Time methocarbamol [From Robaxin] Allergy Itching Verified 12/01/18 10:29 tramadol AdvReac Sweating Verified 12/01/18 10:29 Home Meds: Home Meds Pantoprazole Sodium [Protonix] 40 mg PO BID 04/25/16 [History] predniSONE [Prednisone] 30 mg PO DAILY 04/25/16 [History] Lisinopril [Prinivil] 40 mg PO DAILY #40 tablet 03/30/17 [Rx] Metoprolol Tartrate 25 mg PO BID 10/09/17 [History] Rotuxin. 1 injection IM Q30D 01/09/18 [History] Ranitidine HCl [Zantac] 150 mg PO BID 01/11/18 [History] Orphenadrine [Norflex] 100 mg PO BID PRN #20 tab 11/28/18 [Rx] Past Medical History HEENT History: Reports: Impaired Vision Other HEENT History: wears eyeglasses Cardiovascular History: Reports: Hypertension Respiratory History: Reports: Intubation, Previous, Pneumothorax, Other (See Below) Other Respiratory History: ANCA Vasculitis, wagners disease Gastrointestinal History: Reports: GERD Genitourinary History: Reports: Renal Calculus, Renal Disease Musculoskeletal History: Reports: Back Pain, Chronic, Neck Pain, Chronic Neurological History: Reports: Headaches, Chronic Endocrine/Metabolic History: Reports: Obesity/BMI 30+ Immunologic History: Reports: Other (See Below) Other Immunologic History: vasculitis, "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." - Past Surgical History GI Surgical History: Reports: Appendectomy Neurological Surgical History: Reports: C-Spine, Lumbar Spine, Spinal Fusion Musculoskeletal Surgical History: Reports: Other (See Below) Other Musculoskeletal Surgeries/Procedures:: L5-S1 fusion and fusion C5-C7 Social & Family History - Family History Family Medical History: Noncontributory Cardiac: Reports: [place] Neurological: Reports: Other (See Below) Other Neurological Family History: Mother had a crani - Tobacco Use Smoking Status *Q: Never Smoker - Caffeine Use Caffeine Use: Reports: Soda Other Caffeine Use: Daily soda drinker - Recreational Drug Use Recreational Drug Use: No - Living Situation & Occupation Living situation: Reports: Single, Other (Work camp) 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) ED ROS GENERAL - Review of Systems Review Of Systems: See Below Constitutional: Denies: Fever, Chills GI/Abdominal: Denies: Stool Incontinence : Denies: Incontinence Musculoskeletal: Reports: Back Pain Neurological: Denies: Numbness, Tingling ED EXAM,LOWER BACK PAIN/INJURY - Physical Exam Exam: See Below Exam Limited By: No Limitations General Appearance: Alert, WD/WN, No Apparent Distress Throat/Mouth: Normal Inspection, Normal Voice, No Airway Compromise Neck: Normal Inspection, Supple, Non-Tender Respiratory/Chest: No Respiratory Distress, Lungs Clear, Normal Breath Sounds Cardiovascular: Normal Peripheral Pulses, Regular Rate, Rhythm, No Murmur Back Exam: Normal Inspection, Full Range of Motion (freely moves around the cot showing no difficulty with ROM with flexion and extenion; reports pain wiht rotation of the biltateral hips and reports pain and is unable to preform straight leg raise). No: Vertebral Tenderness Extremities: Normal Inspection Neurological: Alert, Normal Mood/Affect, Normal Dorsiflexion, Normal Plantar Flexion, Normal Gait Psychiatric: Normal Affect, Normal Mood Skin Exam: Warm, Dry, Normal Color Course - Vital Signs Last Recorded V/S: Last Vital Signs Temp 98.1 F 12/01/18 10:31 Pulse 98 12/01/18 10:31 Resp 13 12/01/18 10:31 BP 158/105 H 12/01/18 10:31 Pulse Ox 99 12/01/18 10:31 - Re-Assessments/Exams Free Text/Narrative Re-Assessment/Exam: 12/01/18 11:40 Patient was searched on the [place] prescription drug registry. He has received 17 prescriptions for narcotics within the last 2 years. This does not include [place]. Was asked several times about his visit with primary care on Monday. He states repeatedly they did not prescribe anything. When I reviewed the records from the clinic and the drug registry is obvious that he was given 20 hydrocodone 10-325. This is a 5 day supply. At this point I'm concerned that he is drug seeking as he is not forthcoming with his narcotic usage. He does feel that there is something significantly wrong with his back. He had an x-ray done in the ER which did not show any obvious abnormalities. I offered him a CT of his lumbar spine today but he declined. I will place an outpatient order for an abdomen MRI done and follow up with his primary. Given this is a chronic problem I educated him that the ER does not do chronic pain management and he should have enough hydrocodone until Monday. He did not deny this when asked about the hydrocodone but was not forthcoming with information regarding this to me or triage. Will discharge home at this time. Discharge instructions as documented. Departure - Departure Time of Disposition: 11:42 Disposition: Home, Self-Care 01 Clinical Impression: Drug-seeking behavior Back pain, chronic Qualifiers: Back pain location: low back pain Back pain laterality: right Sciatica presence : with sciatica Sciatica laterality: sciatica of right side Qualified Code(s): M54.41 - Lumbago with sciatica, right side - Discharge Information *PRESCRIPTION DRUG MONITORING PROGRAM REVIEWED*: No *COPY OF PRESCRIPTION DRUG MONITORING REPORT IN PATIENT DEAN: No Instructions: Back Pain, Adult, [id number] Referrals: Julito Hatch PA-C [Primary Care Provider] - Forms: ED Department Discharge Additional Instructions: Continue with the hydrocodone and the Norflex that you have at home for pain relief. Recommend that you follow up with physical therapy as planned. Follow up with your primary care provider for further pain management, unfortunately in the ER we are unable to manage chronic pain. An outpatient order has been placed through to have a MRI of her lumbar spine. to schedule this Call [phone] and ask for radiology if you do not hear from them. Please return to the ER if your symptoms change or worsen.
== END 2018-12-01 12:13 | disposition home or self-care (01) ==
LOC: JD.ED 10:19
DX: M54.41 Lumbago with sciatica, right side (principal); I10 Essential (primary) hypertension; K21.9 Gastro-esophageal reflux disease without esophagitis; Z79.899 Other long term (current) drug therapy; Z88.5 Allergy status to narcotic agent; Z88.8 Allergy status to other drugs, medicaments and biological substances
CPT/HCPCS: 99281; 99283

== ENCOUNTER 2018-12-09 17:33 | Emergency (ER) | payer BC ==
[2018-12-09 18:02] VITALS: BP 178/99
--- NOTE | 2018-12-09 19:31 | EDM.PDOC ---
ED HPI GENERAL MEDICAL PROBLEM - General Chief Complaint: Back Pain or Injury Stated Complaint: LOW BACK PAIN Time Seen by Provider: 12/09/18 19:06 Source of Information: Reports: Patient History Limitations: Reports: No Limitations - History of Present Illness INITIAL COMMENTS - FREE TEXT/NARRATIVE: Patient is a 33-year-old male with a history of fusion to the lumbar spine with chronic pain presents to the ED complaining of low back pain. States for the past 3 weeks he has been experiencing increasing low back discomfort. Located on the lumbar spine that radiates into the right buttocks. There has been no radiation of pain down the posterior aspect of his leg. He was evaluated by neurosurgeon JAYSON back in his home state during this past three wks. MRI was taken with no concerning findings. They suspect the cause of the discomfort is due to the strenuous work that he is performing causing some pulling on the hardware that was implanted May 2018. Fussion is to the L5 and S1. He was evaluated in the ER a few weeks ago with x-ray of the lumbar spine obtained with no concerning findings. Physical therapy was arranged outpatient basis to which he has been participating in. In addition back in his home state his primary care provider is planning to place him on Suboxone. Patient in the past has taken Flexeril with good results. He does have a history of vasculitis and is on increased dose of prednisone 50 mg every day and is supposed to start tapering. Patient has appointment with PT this coming week. He has been taking ibuprofen and Tylenol with little relief. Denies any numbness into into his legs , saddle anesthesia, or incontinence to urine or stool. Lower Back Pain Score (Numeric/FACES): 9 - Related Data Allergies Allergy/AdvReac Type Severity Reaction Status Date / Time methocarbamol [From Robaxin] Allergy Itching Verified 12/01/18 10:29 tramadol AdvReac Sweating Verified 12/01/18 10:29 Home Meds: Home Meds Pantoprazole Sodium [Protonix] 40 mg PO BID 04/25/16 [History] predniSONE [Prednisone] 30 mg PO DAILY 04/25/16 [History] Lisinopril [Prinivil] 40 mg PO DAILY #40 tablet 03/30/17 [Rx] Metoprolol Tartrate 25 mg PO BID 10/09/17 [History] Rotuxin. 1 injection IM Q30D 01/09/18 [History] Ranitidine HCl [Zantac] 150 mg PO BID 01/11/18 [History] Orphenadrine [Norflex] 100 mg PO BID PRN #20 tab 11/28/18 [Rx] Past Medical History HEENT History: Reports: Impaired Vision Other HEENT History: wears eyeglasses Cardiovascular History: Reports: Hypertension Respiratory History: Reports: Intubation, Previous, Pneumothorax, Other (See Below) Other Respiratory History: ANCA Vasculitis, wagners disease Gastrointestinal History: Reports: GERD Genitourinary History: Reports: Renal Calculus, Renal Disease Musculoskeletal History: Reports: Back Pain, Chronic, Neck Pain, Chronic Neurological History: Reports: Headaches, Chronic Endocrine/Metabolic History: Reports: Obesity/BMI 30+ Immunologic History: Reports: Other (See Below) Other Immunologic History: vasculitis, "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." - Past Surgical History GI Surgical History: Reports: Appendectomy Neurological Surgical History: Reports: C-Spine, Lumbar Spine, Spinal Fusion Musculoskeletal Surgical History: Reports: Other (See Below) Other Musculoskeletal Surgeries/Procedures:: L5-S1 fusion and fusion C5-C7 Social & Family History - Family History Family Medical History: Noncontributory Cardiac: Reports: [place] Neurological: Reports: Other (See Below) Other Neurological Family History: Mother had a crani - Tobacco Use Smoking Status *Q: Never Smoker - Caffeine Use Caffeine Use: Reports: Energy Drinks, Soda Other Caffeine Use: Daily soda drinker - Recreational Drug Use Recreational Drug Use: No - Living Situation & Occupation Living situation: Reports: Single, Other (Work camp) 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 ED EXAM,LOWER BACK PAIN/INJURY - Physical Exam Exam: See Below Exam Limited By: No Limitations General Appearance: Alert, WD/WN, No Apparent Distress Ears: Hearing Grossly Normal Nose: Normal Inspection Throat/Mouth: Normal Voice, No Airway Compromise Neck: Normal Inspection, Supple Respiratory/Chest: No Respiratory Distress, Lungs Clear, Normal Breath Sounds, No Accessory Muscle Use Cardiovascular: Normal Peripheral Pulses, Regular Rate, Rhythm, No Murmur GI/Abdominal: Normal Bowel Sounds, Soft, Non-Tender, No Organomegaly, No Distention Back Exam: Normal Inspection, Decreased Range of Motion, Vertebral Tenderness ( Lumbar spine along the L5 and S1.). No: CVA Tenderness (L), CVA Tenderness (R) Extremities: Normal Inspection, Normal Range of Motion, Non-Tender, No Pedal Edema Neurological: Alert, Normal Mood/Affect, Normal Dorsiflexion, CN II-XII Intact, Normal Plantar Flexion, No Motor/Sensory Deficits, Oriented x 3. No: Straight Leg Raise (L), Straight Leg Raise (R), Difficulty Walking Psychiatric: Normal Affect, Normal Mood Skin Exam: Warm, Dry, Normal Color, No Rash Course - Vital Signs Last Recorded V/S: Last Vital Signs Temp 98.8 F 12/09/18 17:59 Pulse 102 H 12/09/18 17:59 Resp 18 12/09/18 17:59 BP 178/99 H 12/09/18 17:59 Pulse Ox 99 12/09/18 17:59 - Re-Assessments/Exams Free Text/Narrative Re-Assessment/Exam: Patient's pain is chronic and unchanged from previous examinations. He has no current new complaints. No imaging required. I will send the patient home with prescription for Flexeril. He has appointment with PT scheduled for this week. Return precautions discussed with the patient. Patient had no questions or concerns and agrees with plan. Departure - Departure Time of Disposition: 19:31 Disposition: Home, Self-Care 01 Condition: Good Clinical Impression: Chronic low back pain without sciatica Qualifiers: Back pain laterality: midline Qualified Code(s): M54.5 - Low back pain - Discharge Information Instructions: Back Pain, Adult, Chronic Pain, Adult Referrals: Julito Hatch PA-C [Primary Care Provider] - Forms: ED Department Discharge Additional Instructions: Keep appointment with physical therapy as scheduled. Refrain from any activities that cause worsening discomfort. Utilize ice and heat in alternating fashion for pain. May take Tylenol and ibuprofen in alternating fashion for mild to moderate discomfort as well. Utilize topical pain cream such as Biofreeze or icy hot. For back spasms muscle pain take Flexeril as prescribed. Do not drive while taking the Flexeril. See your PCP for further pain management. Return to the ED if you develop any new or worsening symptoms.
== END 2018-12-09 19:52 | disposition home or self-care (01) ==
LOC: JD.ED 17:33
DX: M54.5 Low back pain (principal); Z88.8 Allergy status to other drugs, medicaments and biological substances
CPT/HCPCS: 99283

== ENCOUNTER 2018-12-16 12:30 | Emergency (ER) | payer BC ==
[2018-12-16 12:56] VITALS: BP 183/115
[2018-12-16] MEDS ORDERED: oxyCODONE 5 MG Tab PO ONE (13:11)
--- NOTE | 2018-12-16 13:12 | EDM.PDOC ---
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 He stumbled and his ankle "rolled". He had immediate pain in his right lateral ankle. Is able to bear weight but has significant pain with that. Took Tylenol and ibuprofen at home prior to coming in with no relief. Pain is better with rest. Denies additional injury. He additionally notes that he is generally feeling weak and poorly, for the past 2 days has had a mild cough and also a few episodes of vomiting per day. No diarrhea. No fever. No shortness of breath. No rhinorrhea or sore throat or additional symptoms. He is currently on prednisone 30 mg daily Right Ankle Pain Score (Numeric/FACES): 9 - Related Data Allergies Allergy/AdvReac Type Severity Reaction Status Date / Time methocarbamol [From Robaxin] Allergy Itching Verified 12/01/18 10:29 tramadol AdvReac Sweating Verified 12/01/18 10:29 Home Meds: Home Meds Pantoprazole Sodium [Protonix] 40 mg PO BID 04/25/16 [History] predniSONE [Prednisone] 30 mg PO DAILY 04/25/16 [History] Lisinopril [Prinivil] 40 mg PO DAILY #40 tablet 03/30/17 [Rx] Metoprolol Tartrate 25 mg PO BID 10/09/17 [History] Rotuxin. 1 injection IM Q30D 01/09/18 [History] Ranitidine HCl [Zantac] 150 mg PO BID 01/11/18 [History] Orphenadrine [Norflex] 100 mg PO BID PRN #20 tab 11/28/18 [Rx] Ibuprofen [Motrin] 800 mg PO TID PRN #30 tab 12/16/18 [Rx] Past Medical History HEENT History: Reports: Impaired Vision Other HEENT History: wears eyeglasses Cardiovascular History: Reports: Hypertension Respiratory History: Reports: Intubation, Previous, Pneumothorax, Other (See Below) Other Respiratory History: ANCA Vasculitis, wagners disease Gastrointestinal History: Reports: GERD Genitourinary History: Reports: Renal Calculus, Renal Disease Musculoskeletal History: Reports: Back Pain, Chronic, Neck Pain, Chronic Neurological History: Reports: Headaches, Chronic Endocrine/Metabolic History: Reports: Obesity/BMI 30+ Immunologic History: Reports: Other (See Below) Other Immunologic History: vasculitis, "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." - Past Surgical History GI Surgical History: Reports: Appendectomy Neurological Surgical History: Reports: C-Spine, Lumbar Spine, Spinal Fusion Musculoskeletal Surgical History: Reports: Other (See Below) Other Musculoskeletal Surgeries/Procedures:: L5-S1 fusion and fusion C5-C7 Social & Family History - Family History Family Medical History: Noncontributory Cardiac: Reports: [place] Neurological: Reports: Other (See Below) Other Neurological Family History: Mother had a crani - Tobacco Use Smoking Status *Q: Never Smoker - Caffeine Use Caffeine Use: Reports: Soda Other Caffeine Use: Daily soda drinker - Recreational Drug Use Recreational Drug Use: No - Living Situation & Occupation Living situation: Reports: Single, Other (Work camp) 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 Denies: Fever Eyes: Reports: No Symptoms Ears: Reports: No Symptoms Nose: Reports: No Symptoms Mouth/Throat: Reports: No Symptoms Respiratory: Denies: Shortness of Breath, Cough Cardiovascular: Reports: No Symptoms GI/Abdominal: Reports: No Symptoms Musculoskeletal: Reports: Foot Pain Skin: Reports: No Symptoms Neurological: Reports: No Symptoms ED EXAM, GENERAL - Physical Exam Exam: See Below Exam Limited By: No Limitations General Appearance: Alert, WD/WN, No Apparent Distress Eye Exam: Bilateral Eye: Normal Inspection Ears: Normal External Exam Nose: Normal Inspection Throat/Mouth: Normal Inspection, Normal Voice, No Airway Compromise Head: Atraumatic, Normocephalic Neck: Normal Inspection, Supple, Non-Tender Respiratory/Chest: No Respiratory Distress, Lungs Clear, Normal Breath Sounds, No Accessory Muscle Use, Chest Non-Tender Cardiovascular: Normal Peripheral Pulses, Regular Rate, Rhythm, No Edema, No Murmur GI/Abdominal: Soft, Non-Tender, No Distention. No: Rebound Extremities: Normal Inspection, Other (Right lower extremity: No knee or tibial/ fibula tenderness or deformity. No ankle effusion or deformity. He does have moderate tenderness of the right lateral ankle diffusely about the malleolus. There is no bruising. Skin is intact. No significant tenderness at the base of the fifth metatarsal or additional foot tenderness. Foot is warm and well- perfused. Distal motor/sensation/perfusion intact.) Neurological: Alert, Oriented, Normal Cognition, No Motor/Sensory Deficits Psychiatric: Normal Affect, Normal Mood Skin Exam: Warm, Dry, Intact, Normal Color, No Rash Course - Vital Signs Last Recorded V/S: Last Vital Signs Temp 36.8 C 12/16/18 12:54 Pulse 98 12/16/18 12:54 Resp 20 12/16/18 12:54 BP 183/115 H 12/16/18 12:54 Pulse Ox 99 12/16/18 12:54 - Orders/Labs/Meds Meds: Medications Discontinued Medications Generic Name Dose Route Start Last Admin Trade Name Freq PRN Reason Stop Dose Admin Oxycodone HCl 5 mg 12/16/18 13:11 12/16/18 13:30 Oxycodone PO 12/16/18 13:12 5 mg ONETIME ONE Administration - Re-Assessments/Exams Free Text/Narrative Re-Assessment/Exam: 12/16/18 13:23 Patient is actually quite well-appearing, afebrile, normal vital signs except for mild hypertension, he doesn't look acutely ill or like he is having a significant exacerbation of this chronic disease. Given only 2 days of symptoms in this well-appearing patient, and more suspicious of a mild viral infection. Don't think blood work would be helpful at this point since clinically he doesn' t look like he needs any change in his chronic medication regimen. We'll rule out fracture of the ankle, suspect sprain. 12/16/18 13:42 X-rays of the ankle in the foot show no fracture. Offered crutches, the patient would prefer not to use crutches, he is able to bear weight. Recommended ibuprofen and acetaminophen as needed for pain and encouraged him to follow up with primary doctor if not improving. Discussed emergency department return precautions. 12/17/18 07:[address] Webb states there is a possible very small avulsion fracture at the base of the 5th metatarsal. I did not appreciate this finding when I reviewed the XR myself. I called the patient to notify of this finding and call went to voicemail, I left a message explaining the finding and left the hospital call back number. Departure - Departure Time of Disposition: 13:42 Disposition: Home, Self-Care 01 Clinical Impression: Ankle sprain Qualifiers: Encounter type: initial encounter Involved ligament of ankle: unspecified ligament Laterality: right Qualified Code(s): S93.401A - Sprain of unspecified ligament of right ankle, initial encounter - Discharge Information Prescriptions: Ibuprofen [Motrin] 800 mg PO TID PRN #30 tab PRN Reason: Pain Instructions: Ankle Sprain, [id number] Referrals: Julito Hatch PA-C [Primary Care Provider] - Forms: ED Department Discharge Additional Instructions: 1. Take ibuprofen and acetaminophen as needed for pain 2. Ice area of pain 3. keep ankle elevated when possible. Stay off it until you can walk without a limp 4. Follow up with your primary care provider and/or an orthopedist 5. Return to the ED as needed for severe pain, fever, difficulty breathing, or other concerning symptoms
--- NOTE | 2018-12-16 15:19 | CR ---
Right ankle: Four views of the right ankle were obtained. Comparison: No prior ankle study. Ankle mortise is symmetric. No fracture, dislocation or other bony abnormality is seen. Impression: 1. Nothing acute is seen on right ankle exam. Diagnostic code #1
--- NOTE | 2018-12-16 15:19 | CR ---
Right foot: Four views of the right foot were obtained. Comparison: No prior foot exam. Joint spaces are preserved. Minimal calcification is noted on the lateral view off the base of the fifth metatarsal. This may be old or represent very minimal cortical avulsion fracture. No additional fracture or other bony abnormality is seen. Impression: 1. Small finding off the base of the fifth metatarsal as noted above. Please correlate if patient is symptomatic to this area for this to represent a very minimal cortical avulsion fracture. 2. Right foot exam is otherwise unremarkable. Diagnostic code #3
== END 2018-12-16 13:54 | disposition home or self-care (01) ==
LOC: JD.ED 12:30
DX: S93.401A Sprain of unspecified ligament of right ankle, initial encounter (principal); I10 Essential (primary) hypertension; E66.9 Obesity, unspecified; Z79.899 Other long term (current) drug therapy; Z90.49 Acquired absence of other specified parts of digestive tract; Z98.1 Arthrodesis status; Z88.8 Allergy status to other drugs, medicaments and biological substances; Z88.5 Allergy status to narcotic agent; X50.9XXA Other and unspecified overexertion or strenuous movements or postures, initial encounter
CPT/HCPCS: 73610; 73630; 99283; A9270

== ENCOUNTER 2018-12-18 04:40 | Emergency (ER) | payer BC ==
[2018-12-18 04:55] VITALS: BP 176/114
--- NOTE | 2018-12-18 05:23 | EDM.PDOC ---
ED HPI GENERAL MEDICAL PROBLEM - General Chief Complaint: Lower Extremity Injury/Pain Stated Complaint: RIGHT FOOT AND ANKLE PAIN Time Seen by Provider: 12/18/18 05:02 Source of Information: Reports: Patient History Limitations: Reports: No Limitations - History of Present Illness INITIAL COMMENTS - FREE TEXT/NARRATIVE: The patient presents with a cough and right ankle pain. He was seen here a couple of days ago for the cough and he rolled his right ankle. He tried the ibuprofen and it is on helping much. X-rays were done and Dr Webb thought there may be a chip fracture off of the base of the [address]th [address] rGacia called him to let him know and she left a message. He is back because the ankle is still hurting. 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 I asked him if he needed more steroids and he did not think so. He has no fever or chills. Onset: Sudden Duration: Day(s): (2) Location: Reports: Lower Extremity, Right (ankle) Quality: Reports: Sharp Severity: Moderate Improves with: Reports: Immobilization Worsens with: Reports: Movement Associated Symptoms: Reports: Cough. Denies: Chest Pain, Fever/Chills, Headaches, Nausea/Vomiting, Shortness of Breath Right Ankle Pain Score (Numeric/FACES): 8 - Related Data Allergies Allergy/AdvReac Type Severity Reaction Status Date / Time methocarbamol [From Robaxin] Allergy Itching Verified 12/18/18 04:50 tramadol AdvReac Sweating Verified 12/18/18 04:50 Home Meds: Home Meds Pantoprazole Sodium [Protonix] 40 mg PO BID 04/25/16 [History] predniSONE [Prednisone] 30 mg PO DAILY 04/25/16 [History] Lisinopril [Prinivil] 40 mg PO DAILY #40 tablet 03/30/17 [Rx] Metoprolol Tartrate 25 mg PO BID 10/09/17 [History] Rotuxin. 1 injection IM Q30D 01/09/18 [History] Ranitidine HCl [Zantac] 150 mg PO BID 01/11/18 [History] Orphenadrine [Norflex] 100 mg PO BID PRN #20 tab 11/28/18 [Rx] Ibuprofen [Motrin] 800 mg PO TID PRN #30 tab 12/16/18 [Rx] Naproxen [Naprosyn] 500 mg PO Q12HR PRN #20 tab 12/18/18 [Rx] Past Medical History HEENT History: Reports: Impaired Vision Other HEENT History: wears eyeglasses Cardiovascular History: Reports: Hypertension Respiratory History: Reports: Intubation, Previous, Pneumothorax, Other (See Below) Other Respiratory History: ANCA Vasculitis, wagners disease Gastrointestinal History: Reports: GERD Genitourinary History: Reports: Renal Calculus, Renal Disease Musculoskeletal History: Reports: Back Pain, Chronic, Neck Pain, Chronic Neurological History: Reports: Headaches, Chronic Endocrine/Metabolic History: Reports: Obesity/BMI 30+ Immunologic History: Reports: Other (See Below) Other Immunologic History: vasculitis, "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." - Past Surgical History GI Surgical History: Reports: Appendectomy Neurological Surgical History: Reports: C-Spine, Lumbar Spine, Spinal Fusion Musculoskeletal Surgical History: Reports: Other (See Below) Other Musculoskeletal Surgeries/Procedures:: L5-S1 fusion and fusion C5-C7 Social & Family History - Family History Family Medical History: Noncontributory Cardiac: Reports: [place] Neurological: Reports: Other (See Below) Other Neurological Family History: Mother had a crani - Tobacco Use Smoking Status *Q: Never Smoker - Caffeine Use Caffeine Use: Reports: None Other Caffeine Use: Daily soda drinker - Recreational Drug Use Recreational Drug Use: No - Living Situation & Occupation Living situation: Reports: Single, Other (Work camp) 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) Review of Systems - Review of Systems Review Of Systems: See Below Constitutional: Reports: No Symptoms Eyes: Reports: No Symptoms Ears: Reports: No Symptoms Nose: Reports: No Symptoms Mouth/Throat: Reports: No Symptoms Respiratory: Reports: Cough Cardiovascular: Reports: No Symptoms GI/Abdominal: Reports: No Symptoms Genitourinary: Reports: No Symptoms Musculoskeletal: Reports: Other (Right ankle pain) ED EXAM, GENERAL - Physical Exam Exam: See Below Exam Limited By: No Limitations General Appearance: Alert, No Apparent Distress Ears: Normal External Exam Nose: Normal Inspection Head: Atraumatic, Normocephalic Neck: Normal Inspection Respiratory/Chest: No Respiratory Distress, Lungs Clear, Normal Breath Sounds Cardiovascular: Regular Rate, Rhythm, No Edema, No Murmur GI/Abdominal: Soft, Non-Tender, No Organomegaly, No Mass Back Exam: Normal Inspection Extremities: Other (Pain upon palpation to the lateral and anterior ankle with no pain where there is a possible chip fracture.) Course - Vital Signs Last Recorded V/S: Last Vital Signs Temp 98.2 F 12/18/18 04:52 Pulse 82 12/18/18 04:52 Resp 16 12/18/18 04:52 BP 176/114 H 12/18/18 04:52 Pulse Ox 100 12/18/18 04:52 - Re-Assessments/Exams Free Text/Narrative Re-Assessment/Exam: 12/18/18 05:22 I will get him in a walking boot and a couple days off of work. I will also give him some naprosyn. Departure - Departure Time of Disposition: 05:25 Disposition: Home, Self-Care 01 Condition: Good Clinical Impression: Viral URI Right ankle sprain Qualifiers: Encounter type: subsequent encounter Involved ligament of ankle: unspecified ligament Qualified Code(s): S93.401D - Sprain of unspecified ligament of right ankle, subsequent encounter - Discharge Information *PRESCRIPTION DRUG MONITORING PROGRAM REVIEWED*: No *COPY OF PRESCRIPTION DRUG MONITORING REPORT IN PATIENT DEAN: No Prescriptions: Naproxen [Naprosyn] 500 mg PO Q12HR PRN #20 tab PRN Reason: Pain Referrals: Julito Hatch PA-C [Primary Care Provider] - 1 Week Forms: ED Department Discharge, ED Return to Work/School Form Additional Instructions: Wear the walking boot for a week for comfort. Stop the motrin and try the naprosyn for a few days. Follow up with Julito in 1 week.
== END 2018-12-18 05:33 | disposition home or self-care (01) ==
LOC: JD.ED 04:40
DX: J06.9 Acute upper respiratory infection, unspecified (principal); S93.401D Sprain of unspecified ligament of right ankle, subsequent encounter; I10 Essential (primary) hypertension; K21.9 Gastro-esophageal reflux disease without esophagitis; Z88.5 Allergy status to narcotic agent; Z79.899 Other long term (current) drug therapy; X50.1XXD Overexertion from prolonged static or awkward postures, subsequent encounter
CPT/HCPCS: 99283

== ENCOUNTER 2018-12-18 14:57 | Emergency (ER) | payer BC ==
[2018-12-18 15:18] VITALS: BP 170/117
--- NOTE | 2018-12-18 17:06 | EDM.PDOC ---
ED HPI GENERAL MEDICAL PROBLEM - General Chief Complaint: Lower Extremity Injury/Pain Stated Complaint: R ANKLE PAIN Time Seen by Provider: 12/18/18 15:26 Source of Information: Reports: Patient, Old Records (ED visits 12/16/2018, 2018), RN Notes Reviewed History Limitations: Reports: No Limitations - History of Present Illness INITIAL COMMENTS - FREE TEXT/NARRATIVE: Medical records indicate that the patient was seen in this ED by Dr. Juan Gracia on 12/16/2018, after he stumbled and rolled his right foot inward. He presented with pain to his lateral right ankle. He stated that he was able to bear weight , but had significant pain with it. He stated that he had taken Tylenol and ibuprofen at home prior to coming to the ED, with no relief. He denied any other injury. He reported that he has a history of ANCA vasculitis, and that he had been generally feeling weak and poorly for 2 days prior, with a mild cough and a few episodes of emesis per day. He reported that he was on 30 mg of prednisone daily. On examination, there was no visible abnormality to the patient's right ankle, such as swelling, ecchymosis, or evidence of effusion. He reported tenderness to the lateral ankle about the malleolus, but specifically denied tenderness along the fifth metatarsal or elsewhere on the foot. His foot was warm and well-perfused, with normal distal motor, sensation, and perfusion. X-rays of the ankle were performed, which returned negative for fracture or dislocation. Crutches were offered, but the patient declined them. He was discharged home with the recommendation that he take Tylenol and ibuprofen as needed for discomfort, and encouraged to follow-up with his PCP if he did not improve. It appears that after the patient was discharged, the formal read of the ankle x -rays by Dr. Webb was that there was a possible very small avulsion fracture at the base of the fifth metatarsal. The patient was notified by voice mail. The patient then returned to the ED early this morning, being seen by Dr. Monet. 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 No fever or chills. He stated that he had been trying ibuprofen, and that it did not help much. Dr. Monet was aware of the possible chip fracture at the base of the fifth metatarsal. On examination, the patient was tender to palpation to the lateral and anterior ankle with no pain where there was a possible chip fracture. The patient was fitted with a walking boot and a note for work. Dr. Monet recommended that the patient switch from ibuprofen to naproxen, and a prescription for naproxen was written. Dr. Monet recommended that the patient use a walking boot for a week, and try the naproxen for a few days. The patient was to follow-up with his PCP in one week. The patient now returns to the ED stating that he tried the naproxen, but that he is not yet better. He states that he feels like his foot is in a vice. He states that his pain is along the fifth metatarsal, not the ankle. He states that he has an appointment to see his PCP, Julito Hatch, tomorrow. Treatments [employer]: Reports: NSAIDS Right Feet Pain Score (Numeric/FACES): 9 - Related Data Allergies Allergy/AdvReac Type Severity Reaction Status Date / Time methocarbamol [From Robaxin] Allergy Itching Verified 12/18/18 15:11 tramadol AdvReac Sweating Verified 12/18/18 15:11 Home Meds: Home Meds Pantoprazole Sodium [Protonix] 40 mg PO BID 04/25/16 [History] predniSONE [Prednisone] 30 mg PO DAILY 04/25/16 [History] Lisinopril [Prinivil] 40 mg PO DAILY #40 tablet 03/30/17 [Rx] Metoprolol Tartrate 25 mg PO BID 10/09/17 [History] Rotuxin. 1 injection IM Q30D 01/09/18 [History] Ranitidine HCl [Zantac] 150 mg PO BID 01/11/18 [History] Orphenadrine [Norflex] 100 mg PO BID PRN #20 tab 11/28/18 [Rx] Ibuprofen [Motrin] 800 mg PO TID PRN #30 tab 12/16/18 [Rx] Naproxen [Naprosyn] 500 mg PO Q12HR PRN #20 tab 12/18/18 [Rx] Past Medical History HEENT History: Reports: Impaired Vision Other HEENT History: wears eyeglasses Cardiovascular History: Reports: Hypertension Respiratory History: Reports: Intubation, Previous, Pneumothorax Gastrointestinal History: Reports: GERD Genitourinary History: Reports: Acute Renal Failure (resolved), Renal Calculus Musculoskeletal History: Reports: Back Pain, Chronic, Neck Pain, Chronic Neurological History: Reports: Headaches, Chronic Endocrine/Metabolic History: Reports: Obesity/BMI 30+ 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) - Past Surgical History Respiratory Surgical History: Reports: Other (See Below) (Right VATS) GI Surgical History: Reports: Appendectomy Neurological Surgical History: Reports: C-Spine (C5-C7 ACDF), Lumbar Spine (L5- S1 discectomy) Social & Family History - Family History Family Medical History: Noncontributory Cardiac: Reports: [place] Neurological: Reports: Other (See Below) Other Neurological Family History: Mother had a crani - Tobacco Use Smoking Status *Q: Never Smoker - Caffeine Use Caffeine Use: Reports: Energy Drinks, Soda Other Caffeine Use: Daily soda drinker - Recreational Drug Use Recreational Drug Use: No - Living Situation & Occupation Living situation: Reports: Single, Other (Work camp) 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 ED EXAM, GENERAL - Physical Exam Exam: See Below Exam Limited By: No Limitations General Appearance: Alert, WD/WN, No Apparent Distress Extremities: Other (No visible abnormality to the patient's right foot, such as swelling, erythema, ecchymosis, or abrasion. The patient reports tenderness along the lateral aspect of the foot, over the right fifth metatarsal, and extending towards the lateral malleolus. He denies pain to PROM of the ankle. Neurovascular status of the right lower extremity is intact.) Course - Vital Signs Last Recorded V/S: Last Vital Signs Temp 36.8 C 12/18/18 15:16 Pulse 111 H 12/18/18 15:16 Resp 16 12/18/18 15:16 BP 170/117 H 12/18/18 15:16 Pulse Ox 98 12/18/18 15:16 - Re-Assessments/Exams Free Text/Narrative Re-Assessment/Exam: 12/18/18 17:04 The patient is indicating pain primarily along his right fifth metatarsal, extending to his lateral malleolus, not so much his ankle. Note that his current complaint is different than his two earlier ED visits for the same injury, and now correlates to where he was told there may be a small chip fracture. The x-rays that were performed on 12/16/2018 were of his right ankle. I have ordered dedicated right foot x-rays, to make sure that there are no anatomic abnormalities, however, I have explained to the patient that if the x- rays are negative, then he is just going to have to be patient to allow this relatively minor sprain to heal. The patient had raised the specter of a narcotic, pointing out that this is his third time to the ER, driving long distances each way in frigid weather, and that he is still in terrible pain, and that should we not be prescribing him an opioid. I explained that we prescribe narcotics based on prescribing guidelines, and that a minor sprain would not qualify for an opioid, however, since the x-ray that had been performed was of his ankle and not his foot, perhaps we would find something. 12/18/18 17:16 Notified that the patient wanted to ask me a question before proceeding with the x-rays. He is stating that if he is not going to get an opioid, then why have the x-rays. He stated that since he will be seeing Julito Hatch tomorrow, Julito can do the x-rays and prescribe whatever he feels is necessary. I again explained that the purpose of the x-rays to see if there is a condition that would require treatment with an opioid. The patient pressed me very hard for an opioid, however, I explained that I cannot in good conscience do that unless I find a condition that necessitates such a prescription. The patient has agreed to proceed with the x-rays, although it has become clear by this conversation that the patient is drug seeking. Reviewing prior medical records, I see that the patient was diagnosed with drug- seeking behavior on 08/26/2016 and 05/06/2017. 12/18/18 17:49 4-view radiographs of the right foot appear to be completely normal. No fracture or dislocation identified. Formal read per the Radiologist pending. 12/18/18 17:51 X-ray results discussed with the patient. I will discharge him home, with recommendations that he discontinue using the naproxen or ibuprofen, as the combination of an NSAID and prednisone significantly increases the risk of a GI bleed, and if it is not working, then there is only risk, without benefit. As above, the patient has an appointment to follow-up with his PCP, Julito Hatch, tomorrow. Departure - Departure Time of Disposition: 17:52 Disposition: Home, Self-Care 01 Condition: Good Clinical Impression: Right foot sprain, Drug-seeking behavior - Discharge Information *PRESCRIPTION DRUG MONITORING PROGRAM REVIEWED*: Not Applicable *COPY OF PRESCRIPTION DRUG MONITORING REPORT IN PATIENT DEAN: Not Applicable Instructions: Foot Sprain Referrals: Julito Hatch PA-C [Primary Care Provider] - Forms: ED Department Discharge Additional Instructions: You were seen in the emergency room for continued right foot pain, following injury on 12/16/2018. Workup in the ER included x-rays of your foot, which returned normal. No fractures or dislocations were seen. Based on your history, physical examination, and ER x-rays, your pain is most likely due to a mild sprain. As discussed, sprains may take a couple of weeks to heal. We recommended continuing to ice and elevate your foot as much as possible, and try to avoid walking on it. Since you are on prednisone, the addition of an NSAID such as ibuprofen or naproxen significantly increases the risk of a GI bleed. Because neither the ibuprofen nor naproxen seem to be helping with your pain, we recommend that you discontinue taking all NSAIDs. Follow-up with your PCP, Julito Hatch, at your previously scheduled appointment tomorrow, 12/19/2018. If any other problems, please do not hesitate to return to the ER.
--- NOTE | 2018-12-19 08:26 | CR ---
Right foot: Four views of the right foot were obtained. Comparison: Previous right foot study of 12/16/18. Findings: Joint spaces are preserved. Very minimal calcification is again noted on the lateral view off the base of the fifth metatarsal with differential as described previously. No additional abnormality is seen. Impression: 1. Calcification on the lateral view off the base of fifth metatarsal which is similar to prior right foot exam, difficult to exclude old or acute cortical avulsion fracture. 2. No new abnormality is seen on right foot study. Diagnostic code #3
== END 2018-12-18 18:04 | disposition home or self-care (01) ==
LOC: JD.ED 14:57
DX: S93.601A Unspecified sprain of right foot, initial encounter (principal); Z76.5 Malingerer [conscious simulation]; X50.1XXA Overexertion from prolonged static or awkward postures, initial encounter; Z88.5 Allergy status to narcotic agent; Z79.899 Other long term (current) drug therapy; I10 Essential (primary) hypertension; K21.9 Gastro-esophageal reflux disease without esophagitis
CPT/HCPCS: 73630-26-RT; 73630-RT; 99284

== ENCOUNTER 2018-12-23 12:30 | Emergency (ER) | payer BC ==
[2018-12-23 13:08] VITALS: BP 176/109
[2018-12-23] MEDS ORDERED: Labetalol 100 MG/20 ML MDV IVPUSH ONE (13:38)
[2018-12-23] MEDS ORDERED: Sodium Chloride 0.9% 10 ML Syringe FLUSH PRN (13:39)
[2018-12-23] MEDS ORDERED: Sodium Chloride 0.9% 1,000 ML IV SCH (13:45)
--- NOTE | 2018-12-23 13:46 | EDM.PDOC ---
ED HPI GENERAL MEDICAL PROBLEM - General Chief Complaint: Back Pain or Injury Stated Complaint: BACK PAIN, HIGH BP HIGH PULSE Time Seen by Provider: 12/23/18 13:24 Source of Information: Reports: Patient History Limitations: Reports: No Limitations - History of Present Illness INITIAL COMMENTS - FREE TEXT/NARRATIVE: Patient is a 33-year-old male presents ED complaining of elevated blood pressure , sensation of being drunk, dizzy, intermittent vision changes, and occasional unsteadiness on his feet. He has a history of chronic back pain secondary to 2 surgeries to his low back with fusion. This is unchanged. He has follow-up MRI December 25, 2018. He is scheduled to see his surgeon in [facility] upon returning home this next month. He is on 2 different medications for his blood pressure metoprolol and lisinopril. He has been taking as prescribed. States this has been a chronic issue with trying to control. In the past he's been on Norvasc with no reduction. There's been no changes to his blood pressure medications as of recent. He states recent visit with Julito Hatch his blood pressure was quite elevated at that time and he had to wait a few minutes before being discharged to ensure it would decrease. He has a history of vasculitis is on prednisone. He is taking no ibuprofen or naproxen. He is currently on [place] 10-325 mg, 2 tabs every day for his chronic back pain. He denies any alcohol use or use of recreational drugs. He denies any focal neurological deficits. Denies any headache, vision changes such as blurred vision, double vision, vision loss. There has been no documented fever or nuchal rigidity. He has no chest pain, sob abdominal pain, nausea vomiting, dysuria, hematuria, n/t to extremities, increased swelling to his lower extremities, and/or any additional complaints. Back Pain Score (Numeric/FACES): 9 - Related Data Allergies Allergy/AdvReac Type Severity Reaction Status Date / Time methocarbamol [From Robaxin] Allergy Itching Verified 12/23/18 13:08 tramadol AdvReac Sweating Verified 12/23/18 13:08 Home Meds: Home Meds Pantoprazole Sodium [Protonix] 40 mg PO BID 04/25/16 [History] predniSONE [Prednisone] 30 mg PO DAILY 04/25/16 [History] Metoprolol Tartrate 25 mg PO BID 10/09/17 [History] Rotuxin. 1 injection IM Q30D 01/09/18 [History] Ranitidine HCl [Zantac] 150 mg PO BID 01/11/18 [History] Orphenadrine [Norflex] 100 mg PO BID PRN #20 tab 11/28/18 [Rx] Naproxen [Naprosyn] 500 mg PO Q12HR PRN #20 tab 12/18/18 [Rx] Lisinopril 30 mg PO DAILY #30 tablet 12/23/18 [Rx] Past Medical History HEENT History: Reports: Impaired Vision Other HEENT History: wears eyeglasses Cardiovascular History: Reports: Hypertension Respiratory History: Reports: Intubation, Previous, Pneumothorax Other Respiratory History: ANCA Vasculitis, wagners disease Gastrointestinal History: Reports: GERD Genitourinary History: Reports: Acute Renal Failure, Renal Calculus Musculoskeletal History: Reports: Back Pain, Chronic, Neck Pain, Chronic Neurological History: Reports: Headaches, Chronic Endocrine/Metabolic History: Reports: Obesity/BMI 30+ Immunologic History: Reports: Other (See Below) Other Immunologic History: vasculitis, "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." - Past Surgical History Respiratory Surgical History: Reports: Other (See Below) GI Surgical History: Reports: Appendectomy Neurological Surgical History: Reports: C-Spine, Lumbar Spine Social & Family History - Family History Family Medical History: Noncontributory Cardiac: Reports: [place] Neurological: Reports: Other (See Below) Other Neurological Family History: Mother had a crani - Caffeine Use Caffeine Use: Reports: Coffee Other Caffeine Use: Daily soda drinker - Recreational Drug Use Recreational Drug Use: No - Living Situation & Occupation Living situation: Reports: Single, Other (Work camp) 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 ED EXAM, GENERAL - Physical Exam Exam: See Below Exam Limited By: No Limitations General Appearance: Alert, WD/WN, No Apparent Distress Eye Exam: Bilateral Eye: EOMI, Nystagmus (None noted), PERRL Ears: Hearing Grossly Normal Nose: Normal Inspection Throat/Mouth: Normal Voice, No Airway Compromise Head: Atraumatic, Normocephalic Neck: Normal Inspection, Supple Respiratory/Chest: No Respiratory Distress, Lungs Clear, Normal Breath Sounds, No Accessory Muscle Use Cardiovascular: Normal Peripheral Pulses, Regular Rate, Rhythm, No JVD, No Murmur Peripheral Pulses: 2+: Radial (L), Radial (R) GI/Abdominal: Normal Bowel Sounds, Soft, Non-Tender, No Organomegaly, No Distention Back Exam: Normal Inspection Extremities: Normal Inspection, Normal Range of Motion, Non-Tender, No Pedal Edema Neurological: Alert, Oriented, CN II-XII Intact, Normal Cognition, No Motor/ Sensory Deficits, Other (No facial droop, no slurred speech, no tongue deviation , no pronator drift, no weakness discrepancies to the upper and lower extremities. Finger to nose and rapid alternating movements are intact. Gait is normal.) Psychiatric: Normal Affect, Normal Mood Skin Exam: Warm, Dry, Intact, Normal Color, No Rash Course - Vital Signs Last Recorded V/S: Last Vital Signs Temp 99.6 F 12/23/18 13:04 Pulse 90 12/23/18 13:04 Resp 18 12/23/18 13:04 BP 176/109 H 12/23/18 13:04 Pulse Ox 100 12/23/18 13:04 - Orders/Labs/Meds Orders: Active Orders 24 hr Category Date Time Status EKG 12 Lead [EKG Documentation Completion] [RC] STAT Care 12/23/18 15:18 Active EKG Documentation Completion [RC] STAT Care 12/23/18 13:37 Active Peripheral IV Care [RC] . DIRECTED Care 12/23/18 13:39 Active CXR [Chest 1V Frontal] [CR] Stat Exams 12/23/18 14:05 Taken Peripheral IV Insertion Adult [OM.PC] Routine Oth 12/23/18 13:39 Ordered Labs: Laboratory Tests 12/23/18 12/23/18 12/23/18 Range/Units 14:10 14:10 14:50 WBC 9.07 (4.23-9.07) K/mm3 RBC 4.33 L (4.63-6.08) M/mm3 Hgb 12.5 L (13.7-17.5) gm/L Hct 38.8 L (40.1-51.0) % MCV 89.6 (79.0-92.2) fl MCH 28.9 (25.7-32.2) pg MCHC 32.2 (32.2-35.5) g/dl RDW Std Deviation 48.2 H (35.1-43.9) fL Plt Count 318 (163-337) K/mm3 MPV 10.3 (9.4-12.3) fl Neut % (Auto) 81.8 H (34.0-67.9) % Lymph % (Auto) 11.2 L (21.8-53.1) % [place] % (Auto) 6.4 (5.3-12.2) % Eos % (Auto) 0.4 L (0.8-7.0) Baso % (Auto) 0.1 (0.1-1.2) % Neut # (Auto) 7.41 H (1.78-5.38) K/mm3 Lymph # (Auto) 1.02 L (1.32-3.57) K/mm3 [place] # (Auto) 0.58 (0.30-0.82) K/mm3 Eos # (Auto) 0.04 (0.04-0.54) K/mm3 Baso # (Auto) 0.01 (0.01-0.08) K/mm3 Sodium (136-145) mEq/L Potassium (3.5-5.1) mEq/L Chloride (98-107) mEq/L Carbon Dioxide (21-32) mEq/L Anion Gap (5-15) BUN (7-18) mg/dL Creatinine (0.7-1.3) mg/dL Est Cr Clr Drug Dosing mL/min Estimated GFR (MDRD) (>60) mL/min BUN/Creatinine Ratio (14-18) Glucose (74-106) mg/dL Calcium (8.5-10.1) mg/dL Total Bilirubin (0.2-1.0) mg/dL AST (15-37) U/L ALT (16-63) U/L Alkaline Phosphatase (46-116) U/L Troponin I (0.00-0.056) ng/mL Total Protein (6.4-8.2) g/dl Albumin (3.4-5.0) g/dl Globulin gm/dL Albumin/Globulin Ratio (1-2) Urine Color Yellow (Yellow) Urine Appearance Clear (Clear) Urine pH 6.0 (5.0-8.0) Ur Specific [place] > or = 1.030 (1.005-1.030) Urine Protein 3+ H (Negative) Urine Glucose (UA) Negative (Negative) Urine Ketones Negative (Negative) Urine Occult Blood Negative (Negative) Urine Nitrite Negative (Negative) Urine Bilirubin Negative (Negative) Urine Urobilinogen 0.2 (0.2-1.0) Ur Leukocyte Esterase Negative (Negative) Urine RBC 0-5 (0-5) /hpf Urine WBC 0-5 (0-5) /hpf Ur Epithelial Cells 0-5 (0-5) /hpf Urine Bacteria Not seen (FEW) /hpf Urine Mucus Moderate H (FEW) /hpf Urine Opiates Screen Negative (MBMWAO=516) Ur Buprenorphine Scrn Negative (CUTOFF=10) Ur Oxycodone Screen Negative (RHR6RJ=198) Urine Methadone Screen Negative (KFL8JP=106) Ur Propoxyphene Screen Negative (CYWXKZ=841) Ur Barbiturates Screen Negative (QZYOEI=627) Ur Tricyclics Screen Negative (YLBRTB=761) Ur Phencyclidine Scrn Negative (CUTOFF=25) Ur Amphetamine Screen Negative (YFPWPC=888) U Methamphetamines Scrn Negative (GLRYCD=017) U Benzodiazepines Scrn Negative (ENVIYT=803) U Cocaine Metab Screen Negative (RZZNXS=633) U Marijuana (THC) Screen Negative (CUTOFF=50) 12/23/18 Range/Units 14:50 WBC (4.23-9.07) K/mm3 RBC (4.63-6.08) M/mm3 Hgb (13.7-17.5) gm/L Hct (40.1-51.0) % MCV (79.0-92.2) fl MCH (25.7-32.2) pg MCHC (32.2-35.5) g/dl RDW Std Deviation (35.1-43.9) fL Plt Count (163-337) K/mm3 MPV (9.4-12.3) fl Neut % (Auto) (34.0-67.9) % Lymph % (Auto) (21.8-53.1) % [place] % (Auto) (5.3-12.2) % Eos % (Auto) (0.8-7.0) Baso % (Auto) (0.1-1.2) % Neut # (Auto) (1.78-5.38) K/mm3 Lymph # (Auto) (1.32-3.57) K/mm3 [place] # (Auto) (0.30-0.82) K/mm3 Eos # (Auto) (0.04-0.54) K/mm3 Baso # (Auto) (0.01-0.08) K/mm3 Sodium 144 (136-145) mEq/L Potassium 3.9 (3.5-5.1) mEq/L Chloride 106 (98-107) mEq/L Carbon Dioxide 27 (21-32) mEq/L Anion Gap 14.9 (5-15) BUN 16 (7-18) mg/dL Creatinine 1.2 (0.7-1.3) mg/dL Est Cr Clr Drug Dosing 87.56 mL/min Estimated GFR (MDRD) > 60 (>60) mL/min BUN/Creatinine Ratio 13.3 L (14-18) Glucose 98 (74-106) mg/dL Calcium 9.5 (8.5-10.1) mg/dL Total Bilirubin 0.5 (0.2-1.0) mg/dL AST 22 (15-37) U/L ALT 25 (16-63) U/L Alkaline Phosphatase 102 (46-116) U/L Troponin I < 0.017 (0.00-0.056) ng/mL Total Protein 7.4 (6.4-8.2) g/dl Albumin 3.8 (3.4-5.0) g/dl Globulin 3.6 gm/dL Albumin/Globulin Ratio 1.1 (1-2) Urine Color (Yellow) Urine Appearance (Clear) Urine pH (5.0-8.0) Ur Specific [place] (1.005-1.030) Urine Protein (Negative) Urine Glucose (UA) (Negative) Urine Ketones (Negative) Urine Occult Blood (Negative) Urine Nitrite (Negative) Urine Bilirubin (Negative) Urine Urobilinogen (0.2-1.0) Ur Leukocyte Esterase (Negative) Urine RBC (0-5) /hpf Urine WBC (0-5) /hpf Ur Epithelial Cells (0-5) /hpf Urine Bacteria (FEW) /hpf Urine Mucus (FEW) /hpf Urine Opiates Screen (HTFIOZ=301) Ur Buprenorphine Scrn (CUTOFF=10) Ur Oxycodone Screen (ABH7IE=489) Urine Methadone Screen (PBX8UN=468) Ur Propoxyphene Screen (MLRDDJ=452) Ur Barbiturates Screen (CTXVZR=623) Ur Tricyclics Screen (VAKPES=729) Ur Phencyclidine Scrn (CUTOFF=25) Ur Amphetamine Screen (AANOEX=975) U Methamphetamines Scrn (BTKDBK=528) U Benzodiazepines Scrn (IETEWO=126) U Cocaine Metab Screen (JRCXXT=961) U Marijuana (THC) Screen (CUTOFF=50) Meds: Medications Discontinued Medications Generic Name Dose Route Start Last Admin Trade Name Freq PRN Reason Stop Dose Admin Sodium Chloride 1,000 mls @ 150 mls/hr 12/23/18 13:45 12/23/18 14:33 Normal Saline IV 150 mls/hr ASDIRECTED TRISTEN Administration Labetalol HCl 20 mg 12/23/18 13:38 12/23/18 14:33 Normodyne IVPUSH 12/23/18 13:39 20 mg ONETIME ONE Administration Protocol Sodium Chloride 10 ml 12/23/18 13:39 12/23/18 14:34 Saline Flush FLUSH 10 ml ASDIRECTED PRN Administration Keep Vein Open - Re-Assessments/Exams Free Text/Narrative Re-Assessment/Exam: Upon examination patient's blood pressure 176/109 heart rate 90 and SPO2 100%. Patient is alert and is oriented 3. Neurologically is completely intact with no abnormalities noted on examination. He states he feels drunk and has had issues with balance and feels dizzy while driving into the ED. He has chronic low back pain which is unchanged. He is scheduled for a MRI of the low back and has been on [place] 2 tabs a day. He is currently on metoprolol and lisinopril. The elevated blood pressures have been a chronic issue for him as of recent. He states with recent clinic visit his blood pressure was elevated to the point they had to allow him to rest for a few minutes prior to discharge. There has been no recent changes to his medications other than the edition of [place]. IV will be established with NS and labetalol 20 mg IVP. I initially ordered a CT of the head but was cancelled. Suspect all his symptoms are related to his BP. We'll see how he does with the lowering of his blood pressure if required a CT of the head will be obtained. Labs to be obtained include CBC, chem 14, troponin, and UA. EKG will be obtained as well. EKG sinus rhythm at a rate of 83 with nonspecific T wave abnormalities in lateral leads. CT interval 138. Prolonged QTC of 539. With review of previous EKG dated 01/11/2018 patient's QTc is 453 sinus rhythm at a rate of 98. CXR Reviewed with Dr. Reynoso with no concerning findings. 12/23/18 15:17 Reassessment, blood pressure 142/83. Patient states that drunk feeling has dissipated. Continues have chronic low back pain unchanged. He denies being on any other medications that may contribute to prolonged QT. CBC indicated White blood cell count 9.07, hemoglobin 12.5, platelets normal, slight elevation in neutrophils with neutrophil number is 7.41. He has no infectious concerns. Chemistry panel was essentially normal. Troponin within normal limits. UA 3+ protein. Urine drug tox came back negative for opiates. Patient states he's been taking hydrocodone one tab twice a day of the 10-325. I did review the [place] Board [employer]acy Control substance website. Patient received 40 tabs of oxycodone 5-325 11/25/2017, 20 tablets of hydrocodone 10-325 11/28/2018, 20 tabs of hydrocodone 10-325 . If taking as directed patient should have a positive UA. I suspect patient is diverting. Repeat EKG indicates sinus rhythm at a rate of 86 with nonspecific T abnormalities diffuse leads. CT interval 137. QTC decreased to 430. Within normal limits. I will discharge patient home with instructions as documented. We 'll increase his lisinopril to 30 mg every day. He will need to follow-up with PCP for repeat labs to evaluate his kidney function in the next week. Patient was instructed to return back to the ED if he should develop any new or worsening symptoms. Return precautions discussed with the patient. Departure - Departure Time of Disposition: 15:29 Disposition: Home, Self-Care 01 Condition: Good Clinical Impression: Elevated blood pressure reading with diagnosis of hypertension Prescriptions: Lisinopril 30 mg PO DAILY #30 tablet Instructions: How to Take Your Blood Pressure, Preventing Hypertension Referrals: Julito Hatch PA-C [Primary Care Provider] - Forms: ED Department Discharge Additional Instructions: Take the lisinopril as directed. Will increase to 30 mg every day. Please read the education material on decreasing your blood pressure. Repeat labs and 1-week -old required by the PCP. Please call for appointment to have this scheduled. Please return back to the ED if you develop any new or worsening symptoms. Suggest researching DASH Diet. - My Orders Last 24 Hours: My Active Orders 12/23/18 13:37 EKG Documentation Completion [RC] STAT 12/23/18 13:39 Peripheral IV Care [RC] . DIRECTED Peripheral IV Insertion Adult [OM.PC] Routine 12/23/18 14:05 CXR [Chest 1V Frontal] [CR] Stat 12/23/18 15:18 EKG 12 Lead [EKG Documentation Completion] [RC] STAT - Assessment/Plan Last 24 Hours: My Active Orders 12/23/18 13:37 EKG Documentation Completion [RC] STAT 12/23/18 13:39 Peripheral IV Care [RC] . DIRECTED Peripheral IV Insertion Adult [OM.PC] Routine 12/23/18 14:05 CXR [Chest 1V Frontal] [CR] Stat 12/23/18 15:18 EKG 12 Lead [EKG Documentation Completion] [RC] STAT
--- NOTE | 2018-12-24 07:22 | CR ---
Chest: Portable view of the chest was obtained. Comparison: Prior chest x-ray of 01/09/18. Blunting of the right lateral costophrenic angle is seen which appears to be chronic. Slight scarring is noted within the right lung base. Lungs show no acute parenchymal change. Heart size and mediastinum are normal. Previous cervical spine surgery is seen. Impression: 1. Incidental findings as noted above. Nothing acute is appreciated. Diagnostic code #2
== END 2018-12-23 16:00 | disposition home or self-care (01) ==
LOC: JD.ED 12:30
DX: I10 Essential (primary) hypertension (principal); E66.9 Obesity, unspecified; Z88.8 Allergy status to other drugs, medicaments and biological substances; Z79.82 Long term (current) use of aspirin; Z79.899 Other long term (current) drug therapy
CPT/HCPCS: 36415; 71045; 80053; 80306; 81001; 84484; 85025; 93005; 96361; 96374; 99284; J3490; J7040

== ENCOUNTER 2018-12-24 12:33 | Emergency (ER) | payer BC ==
--- NOTE | 2018-12-24 13:14 | EDM.PDOC ---
ED HPI GENERAL MEDICAL PROBLEM - General Chief Complaint: Back Pain or Injury Stated Complaint: BACK PAIN Time Seen by Provider: 12/24/18 13:10 Source of Information: Reports: Patient History Limitations: Reports: No Limitations - History of Present Illness INITIAL COMMENTS - FREE TEXT/NARRATIVE: Patient is a 33-year-old male who presents to the ED complaining of elevated blood pressure with chronic back pain. Patient has a history of discectomy with fusion of the lumbar spine. He sees a neurosurgeon back [place] for this concerns. In addition has a history of vasculitis, GERD, renal insufficiency, and hypertension. He was seen by me yesterday with concerns of elevated blood pressure. Blood pressures were decreased with labetalol. Subsequently he was discharged home with no administration of any narcotics and /or any prescription for narcotics upon discharge. We increased his lisinopril to 30 mg a day with instructions to have close monitoring of his blood work. We discussed increasing his metoprolol to 50 mg twice a day to which the patient refused. Plan was for the patient to follow up with PCP and discuss other options for his blood pressure control. Patient left the emergency room yesterday with low back pain again described as chronic with no new changes. Further investigation on [facility] Website indicated he was prescribed 80 narcotic tabs in the month of November. Last prescription was December 19 of 20 tabs 10-325 mg with instructions to take 2 tabs a day. This was suppose to last him for 10 days. Yesterday urine drug tox came back negative for any opiates. Patient admits today taking one tab every 6 hours. He attempted to make an appointment with a prior care provider today at [facility] and was instructed there was no openings available. Patient's back pain is unchanged from initial visit first part of November. There is no worsening noted. He denies any headache, vision changes, nausea vomiting, chest pain, tearing sensation to the thoracic back, sob, nausea/vomiting, abdominal pain, focal neurological deficits, and/or any additional complaints. Patient is requesting pain medications for his chronic back pain. Patient admits he has Norflex and naproxen at home to take. Back Pain Score (Numeric/FACES): 9 - Related Data Allergies Allergy/AdvReac Type Severity Reaction Status Date / Time methocarbamol [From Robaxin] Allergy Itching Verified 12/24/18 13:18 tramadol AdvReac Sweating Verified 12/24/18 13:18 Home Meds: Home Meds Pantoprazole Sodium [Protonix] 40 mg PO BID 04/25/16 [History] predniSONE [Prednisone] 30 mg PO DAILY 04/25/16 [History] Metoprolol Tartrate 25 mg PO BID 10/09/17 [History] Rotuxin. 1 injection IM Q30D 01/09/18 [History] Ranitidine HCl [Zantac] 150 mg PO BID 01/11/18 [History] Orphenadrine [Norflex] 100 mg PO BID PRN #20 tab 11/28/18 [Rx] Naproxen [Naprosyn] 500 mg PO Q12HR PRN #20 tab 12/18/18 [Rx] Lisinopril 30 mg PO DAILY #30 tablet 12/23/18 [Rx] Past Medical History HEENT History: Reports: Impaired Vision Other HEENT History: wears eyeglasses Cardiovascular History: Reports: Hypertension Respiratory History: Reports: Intubation, Previous, Pneumothorax Other Respiratory History: ANCA Vasculitis, wagners disease Gastrointestinal History: Reports: GERD Genitourinary History: Reports: Acute Renal Failure, Renal Calculus Musculoskeletal History: Reports: Back Pain, Chronic, Neck Pain, Chronic Neurological History: Reports: Headaches, Chronic Endocrine/Metabolic History: Reports: Obesity/BMI 30+ Immunologic History: Reports: Other (See Below) Other Immunologic History: vasculitis, "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." - Past Surgical History Respiratory Surgical History: Reports: Other (See Below) GI Surgical History: Reports: Appendectomy Neurological Surgical History: Reports: C-Spine, Lumbar Spine Social & Family History - Family History Family Medical History: Noncontributory Cardiac: Reports: [place] Neurological: Reports: Other (See Below) Other Neurological Family History: Mother had a crani - Caffeine Use Caffeine Use: Reports: Coffee Other Caffeine Use: Daily soda drinker - Living Situation & Occupation Living situation: Reports: Single, Other (Work camp) 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 ED EXAM,LOWER BACK PAIN/INJURY - Physical Exam Exam: See Below Exam Limited By: No Limitations General Appearance: Alert, WD/WN, No Apparent Distress Ears: Hearing Grossly Normal Nose: Normal Inspection Throat/Mouth: Normal Voice, No Airway Compromise Neck: Normal Inspection, Supple Respiratory/Chest: No Respiratory Distress, No Accessory Muscle Use Extremities: Normal Inspection Neurological: Alert, Normal Mood/Affect, CN II-XII Intact, Normal Gait, Oriented x 3 Psychiatric: Normal Affect, Normal Mood Skin Exam: Warm, Dry, Normal Color Course - Vital Signs Last Recorded V/S: Last Vital Signs Temp 99.2 F 12/24/18 12:50 Pulse 100 12/24/18 12:50 Resp 20 12/24/18 12:50 BP 160/117 H 12/24/18 12:50 Pulse Ox 98 12/24/18 12:50 - Re-Assessments/Exams Free Text/Narrative Re-Assessment/Exam: Patient is requesting pain medications for his chronic low back pain. I have advised the patient I will not prescribe any narcotic pain medications. He needs to see his primary care provider or a pain specialist for further pain management. In addition patient took increased dose of lisinopril this morning and is hypertensive with evaluation. Blood pressure 178/109 with heart rate 115. Patient does not appear toxic. He does not appear in any acute distress. I' ve advised the patient he will need to see his PCP for further blood pressure management. I have called the [facility] clinic and arranged appointment with Dr. Manuel at 245 today. Departure - Departure Time of Disposition: 13:14 Disposition: Home, Self-Care 01 Condition: Good Clinical Impression: Chronic back pain Qualifiers: Back pain location: low back pain Back pain laterality: right Sciatica presence : with sciatica Sciatica laterality: sciatica of right side Qualified Code(s): M54.41 - Lumbago with sciatica, right side - Discharge Information Instructions: Chronic Back Pain Referrals: Julito Hatch PA-C [Primary Care Provider] - Forms: ED Department Discharge Additional Instructions: Our record indicates that he had been seen in the emergency department multiple times over the past few days to weeks for the problem related to chronic back pain. The majority of this visit involves her request for specifically with administration of narcotic pain medications. owever I have become concerned regarding her frequent need for pain management and I am not comfortable providing you with this type of care. Chronic pain management specialized field of medicine, which requires a level of expertise that an emergency department simply cannot provide. Multiple repeat visits for narcotic pain medications are not the answer and will not control your problem in the long run. For this reason, I strongly encouraged you develop therapeutic relationship with a physician who specializes in these areas such as pain management or neurosurgery that you can receive optimal care for your chronic pain. With this in mind however emergency department will gladly evaluate and treat you at any time for any new emergency medical condition. please see her primary care provider for further pain management.May utilize other means as discussed for management of your your chronic low back pain.
[2018-12-24 13:24] VITALS: BP 160/117
== END 2018-12-24 13:30 | disposition home or self-care (01) ==
LOC: JD.ED 12:33
DX: M54.41 Lumbago with sciatica, right side (principal); G89.29 Other chronic pain; Z88.8 Allergy status to other drugs, medicaments and biological substances; Z79.899 Other long term (current) drug therapy
CPT/HCPCS: 99283